=== PATIENT | male | born 1940 | race Caucasian/White ===

== ENCOUNTER 2016-11-28 13:43 | Inpatient (IN) | payer MEDICARE, OTHER ==
[2016-11-28] VITALS (9 sets, daily range): BP systolic 145–218; BP diastolic 64–80; PULSE 74–90; RESP 20–40; O2SAT 91–100
[~2016-11-28] VITALS: Ht 167.6 cm; Wt 95.6 kg
[~2016-11-28 13:43] MED LIST: ALB083NB3 HHN; ALBU8.5H4 IH; CLONAZEPAM1 M1 PO; FISH PO; IPRA3AMP HHN; ISOS30TA41 PO; METO100T PO; REM15 PO; SIMV80TA PO; TIOT18CA IH; [UNRECOGNIZED DRUG - CODE] PO
--- NOTE | 2016-11-28 14:01 | ED.REPORT ---
HPI-Dyspnea / Wheezing Date of Service Nov 28, 2016 ED Provider: Dr. Blake A 76 year old male with a history of stroke ,COPD, [place], CABG, and HTN presents to the ED via EMS complaining of SOB onset today at 1100. Associated symptoms include dry tongue. Per nurse note, the patient denies chest pain. Per , the patient looked "off" today at 1230 after he awoke from a nap. She also reports that the patient told her that he had rapid breathing before he went to bed last night. She reports that the patient stays up late and normally wakes up at 1100. The patient does try to walk around every day. Nursing Notes Stated Complaint: SOB Chief Complaint: Respiratory Complaints Nursing Notes Reviewed: Yes Allergies: Coded Allergies: prednisone (Verified Allergy, Severe, 04/29/11) Sulfa (Sulfonamide Antibiotics) (Verified Allergy, Intermediate, 04/29/11) TAPE (Verified Allergy, Mild, 04/29/11) atorvastatin (Unverified Allergy, Unknown, 04/29/11) fluticasone (Unverified Allergy, Unknown, 04/29/11) lisinopril (Unverified Allergy, Unknown, 04/29/11) Scheduled Aspirin (Aspirin) 81 Mg Tablet 81 MG PO QAM Atorvastatin (Lipitor) 40 Mg Tablet 40 MG PO HS Clopidogrel (Clopidogrel) 75 Mg Tablet 75 MG PO QAM Docosahexanoic Acid/Epa (Fish Oil Concentrate Softgel) 1 Each Capsule 1 EACH PO QAM Doxazosin Mesylate (Doxazosin Mesylate) 2 Mg Tablet 2 MG PO HS Isosorbide MN ER (Isosorbide MN ER) 60 Mg Tab.er.24h 60 MG PO QAM Metoprolol Tartrate (Metoprolol Tartrate) 100 Mg Tablet 100 MG PO BID Mirtazapine (Mirtazapine) 15 Mg Tablet 45 MG PO HS Scheduled PRN Albuterol Neb Soln (Albuterol Neb Soln) 0.63 Mg/3 Ml Vial.neb 0.63 MG INHALATION QID PRN PRN For Shortness of Breath Ipratropium/Albuterol Sulfate (Iprat-Albut 0.5-3(2.5) mg/3 mL Inhalant Soln) 3 Ml Ampul.neb 3 ML IH QID PRN PRN For Shortness of Breath General Time Seen by MD: 14:01 Chief Complaint Shortness of breath Hx Obtained From: Patient, EMS Arrived By: Ambulance Sudden in Onset?: Yes Onset Occurred: 1 - 4 hours ago Symptom Duration: Since onset Recent Healthcare: No recent doctor visit Similar Sx Previous: No Past Medical History Past Medical History Stroke CVA [place] Reports: COPD, Hypertension Past Surgical History stents placed lobectomy cartotid endardectomy laprotomy Reports: Appendectomy, CABG Ambulatory Status Independent Review of Systems Review of Systems Note: Dry tongue. Respiratory: Reports: Shortness of breath Complete sys rev & neg: except as marked. Physical Exam Initial Vital Signs Vital Signs (First) Date Time Temp Pulse Resp B/P Pulse Ox O2 Delivery O2 Flow Rate FiO2 11/28/16 13:58 36.1 81 26 218/80 100 Nasal Cannula 3 11/28/16 14:31 40 Initial VS: Reviewed General/Constitutional: Awake, Alert Neck: Full range of motion JVD. rals in both lungs. lower extremity edema. ENT: Atraumatic, Mucous membranes moist Abdomen: Atraumatic, No guarding, No rebound Back: Atraumatic, Full range of motion Lower Extremity / Pelvis / MS: Full range of motion Skin: Color NL Neurologic: Oriented X3, Speech NL, No motor deficits, No sensory deficits, CN II - XII intact normal neurological exam. No slurred speech. Head / Eyes: Atraumatic, Normocephalic, PERRL, EOMI Upper Extremity / MS: Atraumatic, Full range of motion Ankle / Foot: Atraumatic, Full range of motion Interpretation & Diagnostics Lab Results Interpretation Result Diagram: 11/28/16 1430 11/28/16 1430 Test 11/28/16 14:30 White Blood Count 6.8th/mm3 (3.8-10.1) Red Blood Count 4.40mil/mm3 (4.40-5.80) Hemoglobin 13.2g/dL (13.8-17.2) Hematocrit 43.1% (41.0-50.0) Mean Corpuscular Volume 98.0fL (81-100) Mean Corpuscular Hemoglobin 30.0pg (27.0-35.0) Mean Corpuscular Hemoglobin Concent 30.6% (32.0-37.0) Red Cell Distribution Width 12.3% (12.3-15.4) Platelet Count 96bil/L (150-400) Neutrophils (%) (Auto) 91.1% (40-74) Lymphocytes (%) (Auto) 3.1% (14-46) Monocytes (%) (Auto) 4.7% (4-12) Eosinophils (%) (Auto) 0.1% (0-5) Basophils (%) (Auto) 0.1% (0-3) Sodium Level 133mEq/L (134-144) Potassium Level 5.8mEq/L (3.5-5.2) Chloride Level 90mEq/L (97-108) Carbon Dioxide Level 35mmol/L (18-29) Blood Urea Nitrogen 10mg/dL (8-27) Creatinine 0.89mg/dL (0.76-1.27) Estimat Glomerular Filtration Rate 89mL/min (>59) Glucose Level 140mg/dL (60-99) Lactic Acid Level 0.8mmol/L (0.4-2.0) Calcium Level 8.6mg/dL (8.5-10.1) Magnesium Level 2.0mg/dL (1.6-2.6) Total Bilirubin 1.0mg/dL (0.0-1.2) Aspartate Amino Transf (AST/SGOT) 35U/L (0-50) Alanine Aminotransferase (ALT/SGPT) 38U/L (0-44) Alkaline Phosphatase 106U/L (25-160) Troponin T 0.015ug/L (0.0-0.011) Pro-B-Type Natriuretic Peptide 2434pg/mL (0-486) Total Protein 6.8g/dL (6.4-8.4) Albumin 4.2g/dL (3.4-5.0) Procalcitonin 0.05ng/mL (0.00-0.08) ECG Interpretation ECG Interpretation: Rate is 83. Sinus rhythm. Probable left atrial enlargement. Time: 14:21 Interpreted by: ED physician X-Ray Chest Interpretation Chest Xray Interpretation: IMPRESSION: Findings suspicious for CHF. Dictated by: Janice Mackey MD, PhD on 11/28/2016 at 15:44 Approved by: Janice Mackey MD, PhD on 11/28/2016 at 15:46 View: Portable, 1 view Interpretation / Wet Read by: Interpret - Radiologist Re-Eval/Medical Decision Med Decision/Clinical Course Likely CHF, initially on BiPAP, blood pressure improved after nitroglycerin, IV Lasix given. Source of Hx: Old records, EMS Re-Evaluation/Progress : Time of Eval: 14:12 Re-Evaluation/Progress Note: Rechecked patient and explained plan for treatment. Consultation : Referral / Consult Name: Ravi Noble MD Consulted With: Hospitalist Call Returned at: 16:03 Raspberry Checker: Agrees with eval, Agrees with plan, Accepts admit Note: Discussed patient case with Dr. Noble who accepts patient admit. Counseled Regarding: Diagnosis, Lab results, Need for admission Discharge & Departure Impression: Primary Impression: CHF (congestive heart failure) Disposition: ADMITTED TO HOSPITAL Discharge Condition All VS Reviewed: Yes Condition: Improved Referrals: Kevin Zimmerman MD (PCP) Crit Care Except Billable Proc Time Spent: 30-74 minutes Services Performed: Patient management by me, Time spent at bedside, Reviewing test results Critical Care Notes: See MDM Scribe Attestation Portions of this note were transcribed by Juwan Moffett. I, Dr. Blake personally performed the history, physical exam and medical decision-making; I reviewed and confirmed the accuracy of the information in the transcribed note. Signed by: Yesica Bowling, 11/28/2016 192. copies to: Kevin Zimmerman MD, Timothy S DO Nov 28, 2016 14:01 Juwan Moffett Nov 28, 2016 14:08
[2016-11-28] MEDS ORDERED: Nitroglycerin 2% 1 Gm Ointment TOPICAL ONE (14:10)
[2016-11-28 14:46] LABS: BASOPHILS % (AUTO) 0.1 % (0-3)
[2016-11-28 14:50] LABS: EOSINOPHILS % (AUTO) 0.1 % (0-5); MONOCYTES % (AUTO) 4.7 % (4-12); NEUTROPHILS % (AUTO) 91.1 % (40-74); Platelet Count 96 bil/L (150-400)
[2016-11-28 15:13] LABS: TROPONIN T 0.015 ug/L (0.0-0.011)
--- NOTE | 2016-11-28 15:47 | DRSVH ---
PROCEDURE: X-RAY CHEST ONE VIEW, PORTABLE ([id number]) INDICATIONS: dyspnea, hypoxia TECHNIQUE: One view of the chest was acquired. COMPARISON: [facility], CR, CHEST 2VW, 04/29/2011, 16:56. [facility], CR, CH EST 2VW, 04/30/2011, 12:48. [facility], , CHEST 2VW, 06/12/2015, 12:05 PM. FINDINGS: Surgical changes and devices: Median sternotomy wires. Lungs and pleura: No pleural effusions or pneumothorax. Mild cephalization of the pulmonary vasculat ure and interstitial prominence noted suspicious for CHF. Scarring left lung base is stable compared to prior examinations. Mediastinum: Mediastinal contours appear normal. Heart size is normal. Bones and chest wall: No suspicious bony lesions. Overlying soft tissues appear unremarkable. IMPRESSION: Findings suspicious for CHF. Dictated by: Janice Mackey MD, PhD on 11/28/2016 at 15:44 Approved by: Janice Mackey MD, PhD on 11/28/2016 at 15:46
[2016-11-28] MEDS ORDERED: Furosemide 10 mg/mL 10 mL Inj IVPUSH ONE (15:50)
[2016-11-28] MEDS ORDERED: CLOP75TA28 PO (16:24)
[2016-11-28] MEDS ORDERED: METO100T3 PO (16:24)
[2016-11-28] MEDS ORDERED: IPRA3AMP IH (16:24)
[2016-11-28] MEDS ORDERED: MIRT15TA6 PO (16:24)
[2016-11-28] MEDS ORDERED: ALBU0.63 INHALATION (16:24)
[2016-11-28] MEDS ORDERED: DOCO1CAP3 PO (16:24)
[2016-11-28] MEDS ORDERED: ISOS60TA2 PO (16:24)
[2016-11-28] MEDS ORDERED: DOXA2TAB PO (16:24)
[2016-11-28] MEDS ORDERED: ASPI-973 PO (16:24)
[2016-11-28] MEDS ORDERED: LIP40 PO (16:24)
--- NOTE | 2016-11-28 16:58 | NUR ---
Arrival to 2023 Pt arrived to floor from ER. Pt is dyspneic, pt has 3LNC on, sats are 89-94%. Pt is not currently on bipap and pt would like to avoid being on bipap if possible.
--- NOTE | 2016-11-28 16:59 | PCM.HPMED ---
Subjective Date of Service Nov 28, 2016 Primary Provider: Admitting Physician: Ravi Noble MD Primary Care Physician: Kevin Zimmerman MD Attending Physician: Ravi Noble MD Chief Complaint: Shortness of breath History of Present Illness: This is a 76 old man with past medical history of coronary artery disease status post CABG approximately 10 years ago, COPD secondary to tobacco abuse, on liter of oxygen at home. She also reported hypertension, hypercholesterolemia. Little to the hospital today due to shortness of breath. The daughter was visiting him today and found the patient sitting at the edge of his bed only for shortness of breath. She has a very poor historian , he stated he always been short of breath and denied any recent event such as chest pain, fever, chills, cough or flu like symptoms. No evident emergency room patient found to be hypoxic with oxygen saturation of 80% on room air, his blood pressure was 220 systolic intersection for pulmonary edema. Patient has no previous history of heart failure. His daughter stated has been having twitching movement intermittency for 2-3 day or so, but per patient that has been going on for over a year . No slurred speech, no weakness, no difficulty swallowing, no lightheadedness. Patient lives by himself and he is independent for all activities of daily living. He has a CVA affecting basal ganglia back in 2010 Review of Systems: Review of systems is pertinent for shortness of breath, twitching as described above in history of present illness otherwise a comprehensive review by 12 points is negative Allergies Coded Allergies: prednisone (Verified Allergy, Severe, 04/29/11) Sulfa (Sulfonamide Antibiotics) (Verified Allergy, Intermediate, 04/29/11) TAPE (Verified Allergy, Mild, 04/29/11) atorvastatin (Unverified Allergy, Unknown, 04/29/11) fluticasone (Unverified Allergy, Unknown, 04/29/11) lisinopril (Unverified Allergy, Unknown, 04/29/11) Home Medications Albuterol Sulfate/Ipratropium (Duoneb 2.5-0.5MG/3ML Soln) 3 Ml Nebu 3 ML HHN QID Aspirin-Expunged Drug, Do Not Renew! (Aspirin EC-Expunged Drug, Do Not Renew!) 162 Mg Tabec 325 MG PO DAILY Fish Oil-Expunged Drug, Do Not Renew! (Fish Oil-Expunged Drug, Do Not Renew!) Cap 1 CAP.EC PO DAILY Isosorbide [place]-Expunged Drug, Do Not Renew! (Fiila-Uw-Uibtwcip Drug, Do Not Renew!) 30 Mg Tabcr 60 MG PO AM Metoprolol Tart-Expunged Drug, Do Not Renew! (Metoprolol Tart-Expunged Drug, Do Not Renew!) 100 Mg Tablet 100 MG PO BID Mirtazapine-Expunged Drug, Do Not Renew! (Remeron-Expunged Drug, Do Not Renew!) 15 Mg Tablet 15 MG PO HS Simvastatin-Expunged Drug, Choose New Med! (Simvastatin-Expunged Drug, Choose New Med!) 80 Mg Tablet 40 MG PO DAILY Tiotropium Br-Expunged Drug, Do Not Renew! (Spiriva-Expunged Drug, Do Not Renew! ) 18 Mcg/Puff Pack 1 PUFF IH DAILY Scheduled PRN Albuterol-Expunged Drug, Do Not Renew! (Albuterol-Expunged Drug, Do Not Renew!) 8.5 Gm Hfa.aer.ad 2 PUFFS IH Q4 PRN PRN Albuterol-Expunged Drug, Do Not Renew! (Albuterol-Expunged Drug, Do Not Renew!) 2.5 Mg/3 Ml Nebu 5 MG HHN BID PRN PRN ClonazePAM-Expunged Drug, Do Not Renew! (ClonazePAM-Expunged Drug, Do Not Renew! ) 1 Mg Tablet 2 MG PO DAILY PRN PRN PMH Hypertension, paroxysmal atrial fibrillation, chronic respiratory failure, COPD/ emphysema, CVA, hyperlipidemia, obstructive uropathy, carotid artery disease with 50% to 79% narrowing on the left internal carotid. Surgical History CABG Family History Family history reviewed and is noncontributory to the present illness Social History Hx Alcohol Use: No (stopped in 1979) Hx Substance Use: No Hx Tobacco Use: Yes (still smokes 5 cig day) Living Arrangement: Other (patient lives alone with supervision of his daughter) Exam Vital Signs Vital Sign - Last Date Time Temp Pulse Resp B/P Pulse Ox O2 Delivery O2 Flow Rate FiO2 11/28/16 16:24 63 26 95 Nasal Cannula 3 11/28/16 14:37 40 11/28/16 13:58 36.1 218/80 Exam Gen./constitutional : Obese male in bed comfortably, on oxygen via nasal cannula, short of breath. HEENT: Head is atraumatic, sclerae anicteric. Pupils are equal and reactive to light bilaterally Mouth: Moist oral mucosa and no oral thrush Neck: Normal range of motion. Trachea is midline. No JVD. Chest: No chest wall deformity. Respiratory effort is labored. Lungs: Decreased air entry bilaterally. Bilateral expiratory wheeze. No crackle. Heart: S1, S2 regular in rhythm, no murmur, no gallop, no rales Abdomen: Distended, nontender, no palpable mass. Bowel sounds normal or quadrant Extremity: 2+ edema bilaterally ankle area, and 3+ edema pedally. Skin: No rash, no ulcers Neuro : Normal speech: Non focal. AA) x 3 . Lab and Diagnostics Result Diagram: 11/28/16 1430 11/28/16 1430 X-Rays, CTs and MRIs Accessory reviewed and show pulmonary edema. Lead EKG show normal sinus rhythm Assessment & Plan 1. Acute on chronic respiratory failure with hypoxia 2. Pulmonary edema 3. COPD exacerbation 4. Malignant accelerated hypertension 5. Hyperkalemia. 6. Suspected systolic heart failure Chronic medical problems 1. Hypertension 2. COPD secondary to tobacco abuse 3. Chronic respiratory failure on home oxygen 4. History of coronary artery disease status post CABG 5. Hypercholesterolemia 6. BPH Admit to CCU . BIPAP prn for respiratory failure , wean off and switch to nasal canula when possible Diuretic : Loading dose of Lasix 80 mg IV x 1 , then 40 mg IV BID . Monitor electrolytes . Hyperkalemia is expected to resolve with Lasix. No need for potassium binding at this time. Strict I's and O. Daily weight. Cardiac diet. Obtain 2-D echocardiogram to evaluate EF and other structural heart disease. Patient has history of CABG over 10 years ago and has been doing quite fairly cardiac lange since then . I doubt any new cardiac event. Troponin is negative (0.015) Start Solu-Medrol 40 mg IV every 8 hours. DuoNeb nebulizer every 4 hours. Spiriva 18 mcg inhaler daily . Add Advair on discharge Systolic blood pressure 200 on presentation. Currently 120 after administration of hydralazine. Resume home antihypertensive medications. Her extremity twitching noted during physical examination and reported by daughter. Per patient this is not new. Again he is a poor historian and he seems to have some cognitive impairment. Neurological examination is otherwise within normal limits. Obtain CT scan without contrast. CMP , BNP, troponin in Am Heparin for DVT prophylaxis . the outlined above is an initial plan of care and will be adjusted as per clinical course VTE Prophylaxis: Sub-Q Heparin (Unfractionated) Time spent 75 minutes Ravi Noble MD Nov 28, 2016 16:59
[2016-11-28] MEDS: MethylprednisoLONE Sodium Succinate 40 mg/mL Inj IVPUSH SCH (18:24)
[2016-11-28] MEDS: Isosorbide Mononitrate 60 mg ER24 Tablet PO SCH (18:26)
[2016-11-28 19:34] LABS: APPEARANCE,URINE CLEAR (CLEAR,HAZY); COLOR,URINE YELLOW (YELLOW); OCCULT BLOOD,URINE TRACE (NEGATIVE); PH,URINE 6.5 (5.0-8.0); UROBILINOGEN,URINE NORMAL (NORMAL)
--- NOTE | 2016-11-28 20:14 | DRSVH ---
PROCEDURE: CT BRAIN WITHOUT CONTRAST ([id number]) INDICATIONS: CVA TECHNIQUE: Noncontrast 4.5 mm thick angled axial sections acquired from the foramen magnum to the vertex, with c oronal reformats. COMPARISON: MR, BRAIN W/O CONTRAST, 04/30/2011, 12:17. [facility], CT, BRAIN W/O CONTRAS T, 04/29/2011, 17:16. FINDINGS: Image quality: Excellent. CSF spaces: Basal cisterns are patent. No extra-axial fluid collections. The ventricles are symmet corbin in size and shape. Brain: No intracranial bleeds or masses. There are old lacunar infarcts in the left caudate/interna l capsule and basal ganglia. There is cerebral volume loss for age, with resultant ventricular and cook lcal prominence. There are periventricular and deep white matter chronic small vessel ischemic trevizo es. There is intracranial internal carotid artery atherosclerosis. Skull and face: Calvarium and visualized facial bones appear intact, without suspicious lesions. Sinuses: Visualized sinuses and mastoids are clear. IMPRESSION: 1. No acute intracranial abnormalities. 2. Old lacunar infarcts in the left caudate/internal capsule and basal ganglia. 3. Cerebral volume loss and chronic microvascular ischemic changes. Dictated by: Elda Owens M.D. on 11/28/2016 at 20:08 Approved by: Elda Owens M.D. on 11/28/2016 at 20:12
[2016-11-28] MEDS: Albuterol-Ipratropium 3 mL Inhalation Solution NEB SCH (21:41)
[2016-11-29] VITALS (15 sets, daily range): BP systolic 144–181; BP diastolic 72–81; PULSE 67–100; RESP 20–28; O2SAT 91–98
[2016-11-29] MEDS: Albuterol-Ipratropium 3 mL Inhalation Solution NEB SCH ×10 (00:04→23:49)
[2016-11-29] MEDS: Heparin 5,000 Unit/mL Inj SUBQ SCH ×3 (00:30→16:47)
[2016-11-29] MEDS: MethylprednisoLONE Sodium Succinate 40 mg/mL Inj IVPUSH SCH ×3 (01:02→16:47)
[2016-11-29 04:34] LABS: BASOPHILS % (AUTO) 0.2 % (0-3); EOSINOPHILS % (AUTO) 0.2 % (0-5); MONOCYTES % (AUTO) 1.7 % (4-12); Mean Corpuscular Hemoglobin 29.6 pg (27.0-35.0); Mean Corpuscular Volume 96.5 fL (81-100); NEUTROPHILS % (AUTO) 91.6 % (40-74); Platelet Count 114 bil/L (150-400)
[2016-11-29 05:10] LABS: TROPONIN T 0.013 ug/L (0.0-0.011)
--- NOTE | 2016-11-29 06:17 | NUR ---
Respiratory Patient on 3L per nasal cannula with SpO2 92-95%. Breath sounds: expiratory wheezes throughout, more notable on the left. Resting quietly in bed overnight. Continue to monitor.
[2016-11-29] MEDS: Furosemide 10 mg/mL 4 mL Inj IVPUSH SCH ×2 (06:28→13:05)
[2016-11-29] MEDS: Tiotropium 18mcg/Cap 5 Capsule Inhaler Kit INHALATION SCH ×2 (07:59→09:24)
--- NOTE | 2016-11-29 08:49 | PCM.PNMED ---
Subjective Date of Service Nov 29, 2016 Subjective He has less dyspnea. Really minimal orthopnea or dyspnea at rest. Some dyspnea with exertion. He has had escalating pedal edema for the last 4 weeks. He has been diuretics and has been taking these for several weeks. He has not been watching his salt but has not really had more salt last day or 2. No chest pain or palpitations. No rhinorrhea sore throat fevers chills or cough. No diarrhea. Exam Vital Signs Vital Sign - Last Date Time Temp Pulse Resp B/P Pulse Ox O2 Delivery O2 Flow Rate FiO2 11/29/16 08:30 Supplement Oxygen 11/29/16 07:57 36.8 100 24 181/80 91 3.00 11/28/16 14:37 40 Intake and Output 11/28/16 11/28/16 11/29/16 Cumulative From/Thru 15:00 23:00 07:00 11/28/16 13:58 - 11/29/16 05:52 Intake Total 237 ml 421 ml 658 ml Output Total 300 ml 600 ml 900 ml Balance -63 ml -179 ml -242 ml Intake Oral 237 ml 400 ml 637 ml IV Total 21 ml 21 ml Output Urine Total 300 ml 600 ml 900 ml Exam Alert oriented 3, no distress. Fluent speech Anicteric sclera. Neck supple, normal JVP. Lungs are clear with decreased breath sounds in the bases. Heart is regular without murmur gallop or rub Abdomen is distended but nontender Extremities a 3+ edema bilaterally, good pedal and radial pulses. IVs and Medications Medications Reviewed: Medications were reviewed in detail Lab and Diagnostics Result Diagram: 11/29/1640911/29/16409 X-Rays, CTs and MRIs Accessory reviewed and show pulmonary edema. Lead EKG show normal sinus rhythm Assessment & Plan 1. Acute on chronic respiratory failure with hypoxia, POA. This appears to represent acute heart failure. His last echo was in 2010 with an EF of 60%. It is unclear if he has systolic or diastolic dysfunction at this point. We will repeat the echo today. 2. Pulmonary edema, was secondary to acute heart failure, etiology undefined. POA. We will continue diuresis with IV Lasix every 12 hours. 3. COPD exacerbation,POA. Will use typical measures of low-dose steroids as well as bronchodilators. There is no evidence of pulmonary infection clinically or by x-ray. 4. Essential hypertension, uncontrolled. POA. We will continue to titrate up his oral medications for better control. We will focus on beta blockers at this point. Lucho inhibitors will have to be held until his hyperkalemia improves. 5. Hyperkalemia. POA. This is improving with his current diuresis will follow closely. There is no evidence of acute kidney injury. 6. Chronic respiratory failure on home oxygen, POA 7. History of coronary artery disease status post CABG, POA 8. Hypercholesterolemia, POA 9. BPH, POA The following text retained from the admit history and physical. Admit to CCU . BIPAP prn for respiratory failure , wean off and switch to nasal canula when possible Diuretic : Loading dose of Lasix 80 mg IV x 1 , then 40 mg IV BID . Monitor electrolytes . Hyperkalemia is expected to resolve with Lasix. No need for potassium binding at this time. Strict I's and O. Daily weight. Cardiac diet. Obtain 2-D echocardiogram to evaluate EF and other structural heart disease. Patient has history of CABG over 10 years ago and has been doing quite fairly cardiac lange since then . I doubt any new cardiac event. Troponin is negative (0.015) Start Solu-Medrol 40 mg IV every 8 hours. DuoNeb nebulizer every 4 hours. Spiriva 18 mcg inhaler daily . Add Advair on discharge Systolic blood pressure 200 on presentation. Currently 120 after administration of hydralazine. Resume home antihypertensive medications. Her extremity twitching noted during physical examination and reported by daughter. Per patient this is not new. Again he is a poor historian and he seems to have some cognitive impairment. Neurological examination is otherwise within normal limits. Obtain CT scan without contrast. CMP , BNP, troponin in Am Heparin for DVT prophylaxis . the outlined above is an initial plan of care and will be adjusted as per clinical course Pain Evaluation: Adequate Pain Control VTE Prophylaxis: Sub-Q Heparin (Unfractionated) VTE Mechanical Devices: Anti-Embolic stockings Resuscitation Status: CPR: Attempt Resuscitation Time spent 30 minute Bert De La Cruz MD Nov 29, 2016 08:49
[2016-11-29] MEDS: Isosorbide Mononitrate 60 mg ER24 Tablet PO SCH (09:25)
[2016-11-29] MEDS: Diltiazem CD 120 mg ER24 Capsule PO SCH (13:04)
--- NOTE | 2016-11-29 14:08 | DRSVH ---
[facility] [address] [place] [address] Echocardiogram Report Name: MICHAEL UNDERWOOD Wallace e: 11/29/2016 Height: 66 in Hospital Exam Location: [facility] Weight: 22 0 lb Gender: Male BSA: 2.1 m2 : 1940 Age: 76 yrs BP: 164/73 mmHg Reason For Study: HEART FAILURE, PULMONARY EDEMA History: CABG,COPD Ordering Physician: HOSPITALIST [facility] Performed By: Lorna Rashid Referring Physician: Dr. Kevin Zimmerman Interpretation Summary The left ventricle is normal in size. The ejection fraction is estimated to be 65-70%. The right ventricle is not well visualized. The right ventricle grossly appears normal in size with probable normal systolic function. There is mild aortic regurgitation. Compared to the prior echo study, there has been no change in the severity of aortic regurgitation. Procedure: A two-dimensional transthoracic echocardiogram with color flow and Doppler was performed. The apical views were difficult to obtain and are suboptimal in quality. A contrast injection of Definity was performed to improve assessment of LV function. Contrast was injected into an intravenous site in the left arm. A total of 4 cc of contrast was given. Comparison is made with the echocardiogram of 04-30-2011. The suprasternal notch views were difficult to obtain and are suboptimal in quality. The patient was in normal sinus rhythm during the exam. The patient did well with the Definity Contrast. No complications were noted. Left Ventricle: The left ventricle is normal in size. Left ventricular wall thickness is mild-moderately increased. There is no thrombus. The ejection fraction is estimated to be 65-70%. There has been no significant change since the previous study. There is basal inferior wall hypokinesis. There is basal inferoseptal wall hypokinesis. Compared to the prior exam, the left ventricular wall motion has not changed. Spectral Doppler of the mitral valve is reversed, with an E/A wave ratio < 1.0. Right Ventricle: The right ventricle is not well visualized. The right ventricle grossly appears normal in size with probable normal systolic function. Atria: The left atrium is mildly dilated. The left atrium has remained unchanged in size since the prior echo exam. The right atrium is borderline dilated. There is no Doppler evidence for an atrial septal defect. Mitral Valve: The mitral valve is grossly normal. The mitral valve leaflets are slightly calcified. There is trace mitral regurgitation. Aortic Valve: The aortic valve is trileaflet. There is mild aortic valve sclerosis. The aortic valve opens well. There is no aortic valve stenosis. There is mild aortic regurgitation. Compared to the prior echo study, there has been no change in the severity of aortic regurgitation. Tricuspid Valve: The tricuspid valve is not well visualized, but is grossly normal. There is trace tricuspid regurgitation. The right ventricular systolic pressure is estimated at 38 mmHg assuming a right atrial pressure of 8 mm Hg. Pulmonic Valve: The pulmonic valve is not well seen, but is grossly normal. There is trace pulmonic regurgitation. Great Vessels: The aortic root is normal size. There is aortic root sclerosis/calcification. The dimensions of the ascending aorta are normal. The pulmonary artery is normal size. The IVC is dilated (diameter is greater than 2.1 cm) yet it collapses greater than 50% with a sniff. This suggests a right atrial pressure of 8 mm Hg. Pericardium/ Pleura There is no pericardial effusion. There is no pleural effusion. MMode/2D Measurements & Calculations LVIDd: 4.5 cm LA dimension: 4.4 cm RA long axis LVOT diam LVIDs: 2.8 cm FS: 37.4 % LA A2 area: 22.2 cm RA area AoV Opening EPSS: 0.48 cm LA A4 area: 21.3 cm IVSd: 1.4 cm LA length (vol): 5.6 cm: 20.8 cm Ao root diam LVPWd: 1.2 cm LA vol: 71.8 ml RA vol LA vol index : 64.7 ml Aortic Jxn RA : 31.1 mm2 asc Aorta IVC diam: 2.2 cm Diam: 3.4 cm LV mohr. diameter/BSA LV sys. diameter/BSA (cm/m^2): 2.2 (cm/m^2): 1.4 Doppler Measurements & Calculations Ao V2 max MV E max abram MV E/A: 0.92 TR max abram : 188.2 cm/sec : 93.9 cm/sec Med Peak E' Abram : 275.0 cm/sec Ao max PG MV A max abram TR max PG : 14.2 mmHg : 102.3 cm/sec E/E' med: 13.6 : 30.2 mmHg Ao mean PG MV P1/2t: 79.7 msec Lat Peak E' Abram PA V2 max : 115.0 cm/sec LVOT Max Abram E/E' lat: 10.3 PA mean PG : 118.5 cm/sec E/e' average: 12.0 Pulm A Revs Dur PA Accel Time OSIEL(I,D): 2.4 cm : 0.09 sec sev ratio MV A dur: 0.14 sec AI P1/2t : 555.4 msec AI dec slope : 215.5 cm/s2c MV dec time MV P1/2t max abram Ao V2 mean LV V1 max PG : 0.27 sec : 131.1 cm/sec MVA(P1/2t): 2.8 cm2 Ao V2 VTI: 41.4 cm LV V1 VTI OSIEL(V,D): 2.3 cm2 : 27.5 cm PA V2 mean OSIEL indexed to BSA Pulm A Revs Dur - MV : 76.4 cm/sec (cm^2/m^2): 1.2 A Dur: -0.02 msec Reading Physician:DACIA
--- NOTE | 2016-11-29 17:00 | NUR ---
Resp/Activity Patient a/o x 3, [place], denies pain or nausea. Taking approx 50% of meals. Lungs decreased bilat, neb tx given per RTC. O2 decreased to 2 L nc sat 94-96%. VSS, tele SR. Patient amb in room with SBA brie fair, dyspnea at rest and with exertion. Voiding clear yellow uop. BM x 1. Bilat LE pitting edema 2+.Will cont poc.
[2016-11-30] VITALS (20 sets, daily range): BP systolic 141–173; BP diastolic 62–81; PULSE 66–88; RESP 25–36; O2SAT 91–98
[2016-11-30] MEDS: Heparin 5,000 Unit/mL Inj SUBQ SCH ×3 (00:11→17:56)
[2016-11-30] MEDS: MethylprednisoLONE Sodium Succinate 40 mg/mL Inj IVPUSH SCH ×3 (00:12→17:55)
[2016-11-30] MEDS: Albuterol-Ipratropium 3 mL Inhalation Solution NEB SCH ×7 (02:29→19:24)
[2016-11-30 03:47] LABS: Mean Corpuscular Hemoglobin 29.3 pg (27.0-35.0); Mean Corpuscular Volume 93.7 fL (81-100)
[2016-11-30] MEDS: Furosemide 10 mg/mL 4 mL Inj IVPUSH SCH ×2 (06:10→14:16)
--- NOTE | 2016-11-30 07:02 | NUR ---
Respiratory/HTN Pt on 2-3 L NC throughout shift, occasional SOB at rest, pt states relief w/ neb treatment. SBP 170s this morning, aware, no new orders. Pt given IV lasix this am.
[2016-11-30] MEDS: Tiotropium 18mcg/Cap 5 Capsule Inhaler Kit INHALATION SCH (08:14)
[2016-11-30] MEDS: Isosorbide Mononitrate 60 mg ER24 Tablet PO SCH (08:14)
[2016-11-30] MEDS: Diltiazem CD 120 mg ER24 Capsule PO SCH (08:14)
--- NOTE | 2016-11-30 09:05 | NUR ---
SHERIF SHERIF signed
--- NOTE | 2016-11-30 10:32 | PCM.PNMED ---
Subjective Date of Service Nov 30, 2016 Subjective He is more short of breath today. No chest pain. Minimal wheezing. Minimal cough, dry. He notes it. 69-[id number] history of smoking. He is being treated for acute diastolic heart failure. His urinary output has been marginal but positive. No abdominal pain nausea and diarrhea or diaphoresis. Exam Vital Signs Vital Sign - Last Date Time Temp Pulse Resp B/P Pulse Ox O2 Delivery O2 Flow Rate FiO2 11/30/16 09:57 74 11/30/16 08:07 36.7 36 172/73 93 Nasal Cannula 2.00 11/28/16 14:37 40 Intake and Output 11/29/16 11/29/16 11/30/16 Cumulative From/Thru 15:00 23:00 07:00 11/28/16 13:58 - 11/30/16 04:56 Intake Total 120 ml 200 ml 978 ml Output Total 775 ml 450 ml 2125 ml Balance -655 ml -250 ml -1147 ml Intake Oral 120 ml 200 ml 957 ml IV Total 21 ml Output Urine Total 775 ml 450 ml 2125 ml # Bowel Movements 1 1 Exam We will going to 3. Fluent speech. Tachypneic Mild to moderate distress. Anicteric sclera Lungs with increased great effort but minimal wheezing and good air movement. Heart is regular without murmur gallop or rub. Abdomen is soft nontender. Extremities 1-2+ edema and good pedal pulses IVs and Medications Medications Reviewed: Medications were reviewed in detail Lab and Diagnostics Result Diagram: 11/30/16 0330 11/30/16 0330 X-Rays, CTs and MRIs Accessory reviewed and show pulmonary edema. Lead EKG show normal sinus rhythm Assessment & Plan 1. Acute on chronic respiratory failure with hypoxia, POA. This appears to represent acute heart failure. His last echo was in 2010 with an EF of 60%. It is unclear if he has systolic or diastolic dysfunction at this point. Patient is slightly worse today. His diuresis has been marginal. Echo revealed normal systolic function and possible diastolic dysfunction. He does have extensive smoking history as well but minimal wheezing on exam. The plan is to perform an ABG and chest x-ray continue to diurese more aggressively and continue bronchodilators with IV steroids. 2. Acute on chronic diastolic heart failure. POA. We will continue diuresis with IV Lasix every 12 hours, but increase the dose from 40-60.. 3. COPD exacerbation,POA. Will use typical measures of low-dose steroids as well as bronchodilators. There is no evidence of pulmonary infection clinically or by x-ray. 4. Essential hypertension, uncontrolled. POA. We will continue to titrate up his oral medications for better control. We will focus on beta blockers at this point. Lucho inhibitors will have to be held until his hyperkalemia improves. 5. Hyperkalemia. POA. Recheck labs today. 6. Chronic respiratory failure on home oxygen, POA 7. History of coronary artery disease status post CABG, POA 8. Hypercholesterolemia, POA 9. BPH, POA The following text retained from the admit history and physical. Admit to CCU . BIPAP prn for respiratory failure , wean off and switch to nasal canula when possible Diuretic : Loading dose of Lasix 80 mg IV x 1 , then 40 mg IV BID . Monitor electrolytes . Hyperkalemia is expected to resolve with Lasix. No need for potassium binding at this time. Strict I's and O. Daily weight. Cardiac diet. Obtain 2-D echocardiogram to evaluate EF and other structural heart disease. Patient has history of CABG over 10 years ago and has been doing quite fairly cardiac lange since then . I doubt any new cardiac event. Troponin is negative (0.015) Start Solu-Medrol 40 mg IV every 8 hours. DuoNeb nebulizer every 4 hours. Spiriva 18 mcg inhaler daily . Add Advair on discharge Systolic blood pressure 200 on presentation. Currently 120 after administration of hydralazine. Resume home antihypertensive medications. Her extremity twitching noted during physical examination and reported by daughter. Per patient this is not new. Again he is a poor historian and he seems to have some cognitive impairment. Neurological examination is otherwise within normal limits. Obtain CT scan without contrast. CMP , BNP, troponin in Am Heparin for DVT prophylaxis . the outlined above is an initial plan of care and will be adjusted as per clinical course Pain Evaluation: Adequate Pain Control VTE Prophylaxis: Sub-Q Heparin (Unfractionated) VTE Mechanical Devices: Anti-Embolic stockings Resuscitation Status: CPR: Attempt Resuscitation Time spent 35 minutes Bert De La Cruz MD Nov 30, 2016 10:32
--- NOTE | 2016-11-30 11:21 | ABG ---
DateTimeAnalyzed 11:17:00 -_ pH ____7.350 - 7.350 7.450 pCO2 ___78.8__ -mmHg 35.0 45.0 pO2 ___74.6__ -mmHg 69.0 116 HCO3- ___42.3__ -mmol/L 22.0 26.0 ABE ___13.6__ -mmol/L -2.0 2.0 tHb ___12.6__ -g/dL O2Hb ___92.0__ -% COHb ____1.2__ -% MetHb ____0.9__ -% sO2 ___94.0__ -% 25.0 FIO2 ___28.0__ -% Drawn By ams - Date/Time Notified____ 11:20:00 -_ Spontaneous_RR ___36.0__ -b/min Liter_Flow ____2.0__ -L/min Oxygen Device 1 __CANNULA - Notified By ams - Notified Whom dr jacqueline - Age 69 -years B 765 -mmHg tO2 ___16.3__ -Vol% Bert test _Positive -
--- NOTE | 2016-11-30 12:58 | DRSVH ---
PROCEDURE: X-RAY CHEST ONE VIEW, PORTABLE ([id number]) INDICATIONS: dyspnea TECHNIQUE: One view of the chest was acquired. COMPARISON: [facility], CR, XR CHEST 1VW (PORTABLE), 11/28/2016, 14:59. FINDINGS: Surgical changes and devices: Sternotomy and CABG. Lungs and pleura: Small left pleural effusion is unchanged. There is diffuse interstitial prominence, stable. Mediastinum: Mediastinal contours appear normal. Heart size is normal. Bones and chest wall: No suspicious bony lesions. Overlying soft tissues appear unremarkable. Part ial resection of the left fifth rib. IMPRESSION: Stable chest x-ray. Dictated by: Elda Owens M.D. on 11/30/2016 at 12:56 Approved by: Elda Owens M.D. on 11/30/2016 at 12:56
[2016-11-30] MEDS ORDERED: Albuterol 0.5% (5mg/mL) 20 mL Inhalation Solution NEB PRN (15:15)
--- NOTE | 2016-11-30 15:18 | NUR ---
Social Work-initial assessment: Data & Assessment: See initial assessment. EMR Reviewed. Pt is a 76 y/o male who was admitted on 11/28/16 for Resp. Failure and New Onset CHF per H&P. Pt's insurance is [employer] and [employer] and PCP is Kevin Crum MD. Pt's readmission score is 4-high risk. SW met with pt, pt's daughter Jody Sheth [phone] and daughter Sidra Gonzalez [phone] to discuss discharge planning, SW role explained and initial assessment complete. Pt is alert and oriented x3. Pt resides at home alone in a single level home with no steps to enter where pt remains independent with basic ADLs. Pt is independent at baseline and has a power chair. Patient does not drive. Pt has no HH or SNF history. Pt has not completed DPOA/ advanced directive and SW provided patient and family with information. Pt has no fdc care or VA benefits. Pt's family have been assisting him at home. SW discussed HH services and continuous churn buttermaker care planning. Patient chose [facility] if HH is needed upon discharge. Pt's family to provide transport home at discharge. SW provided phone number and plan on white board in room. SW will continue to follow. Plan: Pt to likely discharge home rule out HH. Pt's family is supportive. Patient will be transported home via POV. SW will continue to follow. Ben Leon LMSW, [facility] Addendum: 11/30/16 at 1531 by BEN LEON SS Amended: Links added. Addendum: 11/30/16 at 1532 by BEN LEON SS Patient receives O2 from [facility]
--- NOTE | 2016-11-30 18:33 | NUR ---
Resp Patient a/o x 3, [place], but denies pain or nausea, taking diet fair. See vitals, tele SR. Patient c/o increased sob this shift, RR 36-40 min, requiring more freq neb tx per RTC. MD aware, CXR and ABG's done. Patient placed on HFNC brie fair but requested to go back on nc but HFNC wouldnt stay in nares. Patient oob to chair with sba brie fair. Will cont poc.
--- NOTE | 2016-11-30 19:08 | NUR ---
UOP/Bladder scan Patient voiding small amts clear yellow uop 50-100 ml at a time. Bladder scan done PVR 273 ml.
[2016-11-30] MEDS ORDERED: Albuterol 2.5 mg/3 mL Inhalation Solution NEB ONE (21:58)
--- NOTE | 2016-11-30 22:57 | NUR ---
Resp/BiPAP Pt had very labored breathing at start of shift, maintaining adequate oxygenation but tachypneic and gasping, breath sounds markedly decreased. Pt awake and following commands but looked anxious d/t breathing and hardly able to speak d/t SOB. Neb treatment given at this time by RT. Pt refusing BiPAP. Pt reassessed a little later and breathing was still labored, pt also seemed a little disoriented when answering questions. MD notified and ordered ABGs. Charge nurse assessed pt as well and spoke to him about the need for BiPAP, pt agreed and RT applied this. Pt stated this helped improve his SOB somewhat. Continuing to monitor.
--- NOTE | 2016-11-30 23:10 | ABG ---
DateTimeAnalyzed 23:05:00 -_ pH ____7.325 - 7.350 7.450 pCO2 ___82.5__ -mmHg 35.0 45.0 pO2 110 -mmHg 69.0 116 HCO3- ___41.8__ -mmol/L 22.0 26.0 ABE ___12.8__ -mmol/L -2.0 2.0 tHb ___12.0__ -g/dL O2Hb ___95.8__ -% COHb ____1.2__ -% MetHb ____0.9__ -% sO2 ___97.9__ -% 25.0 FIO2 ___45.0__ -% Drawn By RB - Oxygen Device 1 ____BIPAP - Notified By RB - Notified Whom CAROL K, RN - Age 69 -years B 762 -mmHg tO2 ___16.3__ -Vol% Bert test N/A -
[2016-12-01] VITALS (12 sets, daily range): BP systolic 67–164; BP diastolic 36–98; PULSE 50–77; RESP 18–36; O2SAT 88–98
[2016-12-01] MEDS: Heparin 5,000 Unit/mL Inj SUBQ SCH ×3 (00:40→17:36)
[2016-12-01] MEDS: MethylprednisoLONE Sodium Succinate 40 mg/mL Inj IVPUSH SCH ×3 (00:42→17:37)
[2016-12-01] MEDS: Albuterol-Ipratropium 3 mL Inhalation Solution NEB SCH ×6 (00:56→20:38)
--- NOTE | 2016-12-01 02:02 | NUR ---
Mentation/Restlessness Pt now answering all orientation questions appropriately, though limited in speaking by BiPAP use, pt is oriented to self and stating that he is in the hospital d/t his trouble breathing, pt also able to state accurate year. However, pt has been restless on BiPAP and continually pulling at mask and tubing, given PRN Restoril at 2330 w/ minimal effect. MD informed of pt's improved mentation but constant restlessness affecting BiPAP use and ordered one time Ativan dose. Continuing to monitor.
--- NOTE | 2016-12-01 03:56 | ABG ---
DateTimeAnalyzed 03:52:00 -_ pH ____7.313 - 7.350 7.450 pCO2 ___87.4__ -mmHg 35.0 45.0 pO2 ___85.2__ -mmHg 69.0 116 HCO3- ___43.0__ -mmol/L 22.0 26.0 ABE ___13.4__ -mmol/L -2.0 2.0 tHb ___12.3__ -g/dL O2Hb ___93.8__ -% COHb ____1.3__ -% MetHb ____0.9__ -% sO2 ___95.9__ -% 25.0 FIO2 ___40.0__ -% Set_RR ___16.0__ -b/min Drawn By RB - Date/Time Notified____ 03:55:00 -_ Oxygen Device 1 ____BIPAP - Notified By RB - Notified Whom SULLENBERGER, OFELIA DR - Age 69 -years B 760 -mmHg tO2 ___16.3__ -Vol% Bert test N/A -
[2016-12-01] MEDS: Furosemide 10 mg/mL 4 mL Inj IVPUSH SCH ×2 (06:25→11:29)
--- NOTE | 2016-12-01 08:08 | NUR ---
Mentation/Restraints Pt able to sleep for about an hour after Ativan admin. When woken for vitals pt found to be somnolent and not able to answer orientation questions well, more grunting and occasional yes/no answers, but overall disoriented. Pt also once again pulling at BiPAP tube and mask. notified, more ABGs ordered and results reported to MD Cedeño by RT. Pt did not return to sleep and began pulling off BiPAP mask consistently desating into 60s when this occurred if staff not there to replace right away. Pt reminded many times to not do this but d/t disorientation would continually pull mask off. ordered soft wrist restraints and someone sat with pt for safety. Mepilex used on nose to protect skin but was continually pulled off d/t pt pulling at mask
[2016-12-01] MEDS: Diltiazem CD 120 mg ER24 Capsule PO SCH (08:24)
[2016-12-01] MEDS: Tiotropium 18mcg/Cap 5 Capsule Inhaler Kit INHALATION SCH (08:24)
[2016-12-01 09:33] LABS: Mean Corpuscular Hemoglobin 29.7 pg (27.0-35.0); Mean Corpuscular Volume 94.1 fL (81-100)
[2016-12-01] MEDS ORDERED: Isosorbide Mononitrate 30 mg ER24 Tablet PO SCH (09:33)
--- NOTE | 2016-12-01 11:28 | PCM.PNMED ---
Subjective Date of Service Dec 01, 2016 Subjective The patient is somnolent. He is on BiPAP. His CO2 remains at 87 today in spite of being on BiPAP for much of the last day. He cannot answer any questions. Exam Vital Signs Vital Sign - Last Date Time Temp Pulse Resp B/P Pulse Ox O2 Delivery O2 Flow Rate FiO2 12/01/16 09:22 70 12/01/16 08:05 31 93 40 12/01/16 07:50 Supplement Oxygen CPAP/BIPAP 12/01/16 07:46 36.9 164/43 11/30/16 20:28 3.00 Intake and Output 11/30/16 11/30/16 12/01/16 Cumulative From/Thru 15:00 23:00 07:00 11/28/16 13:58 - 12/01/16 06:34 Intake Total 640 ml 150 ml 1768 ml Output Total 825 ml 275 ml 3225 ml Balance -185 ml -125 ml -1457 ml Intake Oral 640 ml 150 ml 1747 ml IV Total 21 ml Output Urine Total 825 ml 275 ml 3225 ml # Voids 3 3 # Bowel Movements 0 0 1 Exam Patient is on BiPAP and not really arousable. Neck is supple. Lungs are mostly clear with normal rate Heart is regular without murmur. Abdomen is distended but not tender. Extremities with 1+ edema with good pedal and radial pulses. IVs and Medications Medications Reviewed: Medications were reviewed in detail Lab and Diagnostics Result Diagram: 12/01/1620 12/01/1620 X-Rays, CTs and MRIs Accessory reviewed and show pulmonary edema. Lead EKG show normal sinus rhythm Assessment & Plan 1. Acute on chronic respiratory failure with hypoxia and hypercarbia, POA. This appears to represent acute heart failure. His echo indicates probable diastolic dysfunction. However does have COPD with [id number] history of smoking. The patient unfortunately continues to be hypercarbic while on BiPAP for over 24 hours. Had a long discussion with family today regarding whether or not he would be intubated transiently for treatment of some plain such as acute respiratory failure. There again and talk amongst themselves and in the meantime we will continue BiPAP support. 2. Acute on chronic diastolic heart failure. POA. We will continue diuresis with IV Lasix every 12 hours, but increase the dose from 40-60.. 3. COPD exacerbation,POA. Will use typical measures of low-dose steroids as well as bronchodilators. There is no evidence of pulmonary infection clinically or by x-ray. 4. Essential hypertension, uncontrolled. POA. We will continue to titrate up his oral medications for better control. We will focus on beta blockers at this point. Lucho inhibitors will have to be held until his hyperkalemia improves. 5. Hyperkalemia. POA. Resolved, follow. 6. Chronic respiratory failure on home oxygen, POA 7. History of coronary artery disease status post CABG, POA 8. Hypercholesterolemia, POA 9. BPH, POA Pain Evaluation: Adequate Pain Control VTE Prophylaxis: Sub-Q Heparin (Unfractionated) VTE Mechanical Devices: Anti-Embolic stockings Resuscitation Status: CPR: Attempt Resuscitation Time spent 30 minutes Bert De La Cruz MD Dec 01, 2016 11:28
[2016-12-01 11:47] LABS: TROPONIN T 0.01 ug/L (0.0-0.011)
--- NOTE | 2016-12-01 14:24 | DRSVH ---
PROCEDURE: X-RAY CHEST ONE VIEW, PORTABLE ([id number]) INDICATIONS: dyspnea TECHNIQUE: One view of the chest was acquired. COMPARISON: [facility], CR, XR CHEST 1VW (PORTABLE), 11/30/2016, 11:02. FINDINGS: Surgical changes and devices: Median sternotomy. Lungs and pleura: Blunted left costophrenic angle redemonstrated mild interstitial prominence. Mediastinum: Mediastinal contours appear normal. Heart size is normal. Bones and chest wall: No suspicious bony lesions. Overlying soft tissues appear unremarkable. IMPRESSION: Mild interstitial prominence redemonstrated and either pleural scarring or trace left ple ural effusion appears unchanged. Dictated by: Simón Hernandez [facility] Interpreted: Janice Mackey MD on 12/01/2016 at 14:22 Transcribed by: ALINA on 12/01/2016 at 14:23 Approved by: Janice Mackey MD, PhD on 12/01/2016 at 16:34
--- NOTE | 2016-12-01 15:40 | ABG ---
DateTimeAnalyzed 15:36:00 -_ pH ____7.251 - pCO2 103 -mmHg pO2 ___41.2__ -mmHg HCO3- ___43.8__ -mmol/L ABE ___12.5__ -mmol/L tHb ___12.6__ -g/dL O2Hb ___68.2__ -% COHb ____1.5__ -% MetHb ____1.0__ -% sO2 ___69.9__ -% FIO2 ___40.0__ -% Drawn By JJ - Date/Time Notified____ 15:39:00 -_ Notified By JJ - Notified Whom DR KATIE - Age 69 -years B 755 -mmHg tO2 ___12.1__ -Vol% Bert test _Positive -
--- NOTE | 2016-12-01 15:40 | ABG ---
DateTimeAnalyzed 15:36:00 -_ pH ____7.251 - pCO2 103 -mmHg pO2 ___41.2__ -mmHg HCO3- ___43.8__ -mmol/L ABE ___12.5__ -mmol/L tHb ___12.6__ -g/dL O2Hb ___68.2__ -% COHb ____1.5__ -% MetHb ____1.0__ -% sO2 ___69.9__ -% FIO2 ___40.0__ -% CPAP ___19.0__ -cmH2O PEEP ____6.0__ -cmH2O Drawn By JJ - Date/Time Notified____ 15:39:00 -_ Spontaneous_RR ___34.0__ -b/min Oxygen Device 1 ____BIPAP - Notified By JJ - Notified Whom DR KATIE - Age 69 -years B 755 -mmHg tO2 ___12.1__ -Vol% Bert test _Positive -
--- NOTE | 2016-12-01 15:53 | NUR ---
abg assumed care of patient from 1515 to 1530. when receiving report from day joana De La Cruz notified us that a stat abg would be ordered and to notify him when it was done. ABG done and Dr. De La Cruz notified at 1540 per myself and RT. Dr. De La Cruz to go to room and talk to family. report given to conrad vincent at 1530 and updated on plan for Dr. De La Cruz to talk with family.
--- NOTE | 2016-12-01 16:09 | NUR ---
TRANSFER CCU Assumed care 1530 report from Angella Birch RN. At 1605 patient transferred to room 2016 care of patient given to Pura Jim RN. Dr De La Cruz in room alone with RT, patient to be intubated per patient and family request. ABG;S resulted indicating patients respirations on BiPAP were inadequate.
[2016-12-01] MEDS ORDERED: Etomidate 2 mg/mL 20 mL Inj IV ONE ×2 (16:11→16:25)
--- NOTE | 2016-12-01 16:41 | PCM.PROC ---
Procedure Note Date of Service: Dec 01, 2016 Pre Procedure Diagnosis: Acute on chronic respiratory failure with hypoxia and hypercarbia, Post Procedure Diagnosis: Acute on chronic respiratory failure with hypoxia and hypercarbia, Procedure: Endotracheal Intubation Date: 12/01/2016 Time: 16:35 Indication: Respiratory Distress Resident: Perry Baumann DO R1 Attending: Bob De La Cruz MD Pt's identity confirmed. Procedure discussed with Pt's family by Dr. De La Cruz and Resident in attendance. The patient was placed in a flat position, with next slightly extended. Sedation was obtained with Ativan, and additionally with Etomidate 20mg. The patient was easily ventilated using an ambu bag. The Mac 3 blade was used and inserted into the oropharynx at which time there was a Grade 2 view of the vocal cords. A 7.5-latvian endotracheal tube was inserted and visualized going through the vocal cords. The stylette was removed. Colorimetric change was visualized on the CO2 meter. Breath sounds were heard in both lung dinh equally. The endotracheal tube was placed at 24 cm, measured at the teeth. Attending Dr. De La Cruz was present for the entire procedure. A chest x-ray was ordered to assess for pneumothorax and verify endotracheal tube placement. Estimated Blood Loss: 0ml Post intubation Respiratory Therapy was able to suction the Pt and obtain sputum samples. The patient tolerated the procedure well and there were no complications. Provider and Bakery Demonstrator: Bert De La Cruz MD Indication for Procedure: Respiratory Distress with hypercapnia Attending Statement Patient seen and evaluated with resident. Entire procedure was mentored in person. copies to: Bert De La Cruz MD, GILES A DO Dec 01, 2016 16:41 Bert De La Cruz MD Dec 09, 2016 14:31
[2016-12-01] MEDS ORDERED: Albuterol 2.5 mg/3 mL Inhalation Solution NEB ONE (16:47)
--- NOTE | 2016-12-01 16:48 | DRSVH ---
PROCEDURE: X-RAY CHEST ONE VIEW, PORTABLE ([id number]) INDICATIONS: Post intubation to verify ETT placement TECHNIQUE: One view of the chest was acquired. COMPARISON: [facility], CR, XR CHEST 1VW (PORTABLE), 12/01/2016, 11:32. FINDINGS: Surgical changes and devices: ETT has been placed tip projects at 5.4 cm above the sophie. Nasogastr ic tube traverses the GE junction. Lungs and pleura: No pleural effusions or pneumothorax. Left basilar airspace opacity present in sm all left pleural effusion. Mediastinum: Mediastinal contours appear normal. Heart size is normal. Bones and chest wall: No suspicious bony lesions. Overlying soft tissues appear unremarkable. IMPRESSION: 1. Placement of ETT and nasogastric tube. 2. Increasing opacification within the left lung base and small left pleural effusion suspicious for aspiration or pneumonia. Dictated by: Simón Hernandez RRA Interpreted: Janice Mackey MD on 12/01/2016 at 16:47 Transcribed by: ALINA on 12/01/2016 at 16:48 Approved by: Janice Mackey MD, PhD on 12/01/2016 at 16:50
--- NOTE | 2016-12-01 16:52 | NUR ---
PT ARRIVED TO CCU AT APPROX 1615HRS FROM [facility] PT WAS INTUBATED AT 1615HRS, BP WAS INITALLY LOW IN THE 70'S BUT RESPONDED TO IVF'S AND IS CURRENTLY 124SYS. PT RECEIVED 20MG ETOMADATE IV FOR INTUBATION AND ATIVAN A TOTAL OF 2MG, 1MG AT 1620HRS AND ANOTHER 1MG AT 1650HRS. OG INSETED CXR DONE.
[2016-12-01] MEDS ORDERED: Sodium Chloride LOK Flush 10 mL Syringe IVFLUSH PRN ×4 (17:05→17:15)
[2016-12-01] MEDS: Propofol Inj 1,000,000 MCG in IV Premix 1 EACH IV SCH (17:07)
[2016-12-01] MEDS ORDERED: Albuterol 0.5% (5mg/mL) 20 mL Inhalation Solution NEB PRN (17:11)
[2016-12-01] MEDS: Chlorhexidine 0.12% 15 mL Oral Solution MT SCH ×2 (17:39→20:46)
[2016-12-01] MEDS ORDERED: Meropenem Inj 1,000 MG in IV Premix 1 EACH IV SCH (18:05)
[2016-12-01] MEDS: fentaNYL 2,500 mCg/250 mL 2,500 MCG in IV Premix 1 EACH IV PRN (18:08)
--- NOTE | 2016-12-01 18:48 | NUR ---
Hypotension Pt has been hypotensive since intubation. NS at 999cc/hr. propofol has been titrated on and off to provide sedation and in an attempt to lessen the hypotensive effects of the propofol. Fentanyl has also been started and it is currently at 25mcg. This has helped with his tremors noted in his upper extremities. PICC line placed. MD is aware of hypotension.
[2016-12-01 19:07] LABS: APPEARANCE,URINE CLEAR (CLEAR,HAZY); COLOR,URINE YELLOW (YELLOW); OCCULT BLOOD,URINE LARGE (NEGATIVE); UROBILINOGEN,URINE NORMAL (NORMAL)
--- NOTE | 2016-12-01 20:08 | DRSVH ---
PROCEDURE: X-RAY PICC LINE PLACEMENT BY NURSE ([id number]) INDICATIONS: POOR IV access FOR MEDICATIONS COMPARISON: None. FINDINGS: PICC was placed by the intravenous therapy team from the right side. Fluoroscopic spot fi lm demonstrates tip of PICC over the cavoatrial junction. IMPRESSION: Tip of PICC is projected over the cavoatrial junction. Dictated by: Farhana Rosa M.D. on 12/01/2016 at 20:06 Approved by: Farhana Rosa M.D. on 12/01/2016 at 20:07
--- NOTE | 2016-12-01 20:28 | ABG ---
DateTimeAnalyzed 20:25:00 -_ pH ____7.568 - 7.350 7.450 pCO2 ___38.7__ -mmHg 35.0 45.0 pO2 ___66.7__ -mmHg 69.0 116 HCO3- ___35.3__ -mmol/L 22.0 26.0 ABE ___12.0__ -mmol/L -2.0 2.0 tHb ___11.6__ -g/dL O2Hb ___93.8__ -% COHb ____1.9__ -% MetHb ____1.0__ -% sO2 ___96.6__ -% 25.0 FIO2 ___28.0__ -% PEEP ____5.0__ -cmH2O Set_RR ___24.0__ -b/min Vt __450.0__ -L Drawn By MD - Date/Time Notified____ 20:27:00 -_ Spontaneous_RR ___24.0__ -b/min Oxygen Device 1 VENTILATOR - Notified By MD - Notified Whom RN C.ABDIRIZAK - Age 69 -years B 755 -mmHg tO2 ___15.3__ -Vol% Bert test N/A -
[2016-12-01] MEDS: Norepineph 8,000 mCg/250 mL NS 8,000 MCG in IV Premix 1 EACH IV SCH (20:46)
[2016-12-01] MEDS: Meropenem Inj 1,000 MG in 0.9% Sodium Chloride 100 ML IV SCH (20:47)
[2016-12-02] VITALS (17 sets, daily range): BP systolic 85–146; BP diastolic 39–97; PULSE 71–94; RESP 13–19; O2SAT 95–98
[2016-12-02] MEDS: Albuterol-Ipratropium 3 mL Inhalation Solution NEB SCH ×9 (00:44→22:10)
[2016-12-02] MEDS: Chlorhexidine 0.12% 15 mL Oral Solution MT SCH ×6 (01:27→19:56)
[2016-12-02] MEDS: Heparin 5,000 Unit/mL Inj SUBQ SCH ×3 (01:27→16:50)
[2016-12-02] MEDS: MethylprednisoLONE Sodium Succinate 40 mg/mL Inj IVPUSH SCH ×2 (01:27→09:34)
[2016-12-02] MEDS: Meropenem Inj 1,000 MG in 0.9% Sodium Chloride 100 ML IV SCH ×3 (01:51→18:17)
[2016-12-02 02:05] LABS: Mean Corpuscular Hemoglobin 29.5 pg (27.0-35.0); Mean Corpuscular Volume 93.1 fL (81-100)
--- NOTE | 2016-12-02 05:14 | ABG ---
DateTimeAnalyzed 05:11:00 -_ pH ____7.500 - 7.350 7.450 pCO2 ___46.6__ -mmHg 35.0 45.0 pO2 ___62.9__ -mmHg 69.0 116 HCO3- ___36.0__ -mmol/L 22.0 26.0 ABE ___11.5__ -mmol/L -2.0 2.0 tHb ___11.4__ -g/dL O2Hb ___91.5__ -% COHb ____1.4__ -% MetHb ____1.0__ -% sO2 ___93.8__ -% 25.0 FIO2 ___30.0__ -% PEEP ____5.0__ -cmH2O Set_RR ___19.0__ -b/min Vt __450.0__ -L Drawn By MD - Date/Time Notified____ 05:13:00 -_ Spontaneous_RR ___19.0__ -b/min Oxygen Device 1 VENTILATOR - Notified By MD - Notified Whom RN C.ABDIRIZAK - Age 69 -years B 751 -mmHg tO2 ___14.7__ -Vol% Bert test N/A -
--- NOTE | 2016-12-02 06:12 | NUR ---
BP/Tremors/Sedation Pt hypotensive. CVP 12. Orders from MD to start Levophed gtt. Titrated gtt per protocol to maintain MAP >65. With any sort of stimulation, pt will start full body tremor/shiver that will go away after a couple minutes on own. Increased sedation/pain meds to prevent shiver. Pt did have lowgrade fever and is still being worked up for sepsis. Will continue to monitor. Care ongoing
[2016-12-02] MEDS: Propofol Inj 1,000,000 MCG in IV Premix 1 EACH IV SCH (06:49)
[2016-12-02] MEDS: Tiotropium 18mcg/Cap 5 Capsule Inhaler Kit INHALATION SCH (08:30)
[2016-12-02 08:33] LABS: Magnesium 1.9 mg/dL (1.6-2.6)
--- NOTE | 2016-12-02 09:29 | ABG ---
DateTimeAnalyzed 09:25:00 -_ pH ____7.445 - 7.350 7.450 pCO2 ___55.3__ -mmHg 35.0 45.0 pO2 ___55.9__ -mmHg 69.0 116 HCO3- ___37.4__ -mmol/L 22.0 26.0 ABE ___11.6__ -mmol/L -2.0 2.0 tHb ___11.8__ -g/dL O2Hb ___87.3__ -% COHb ____1.3__ -% MetHb ____1.0__ -% sO2 ___89.4__ -% 25.0 FIO2 ___35.0__ -% PRVC 450 - PEEP ____5.0__ -cmH2O Set_RR ___13.0__ -b/min Vt __470.0__ -L Drawn By jmw - Date/Time Notified____ 09:28:00 -_ Spontaneous_RR ___13.0__ -b/min Oxygen Device 1 VENTILATOR - Notified By jmw - Notified Whom DR KENDREGAN - Age 69 -years B 750 -mmHg tO2 ___14.4__ -Vol% OrderingPhysicianInitials bak - Bert test _Positive -
--- NOTE | 2016-12-02 10:53 | NUR ---
NUTRITION ASSESSMENT Assess: 76 YO M admitted to CCU for respiratory failure. Pt required mechanical ventilation after failing BiPAP on 12/01. Consult received to start tube feeds today. PMHX: HTN, afib, chronic respiratory failure, COPD/emphysema, CVA, HLD, carotid artery disease. DIET: NPO. LABS: Na 132, BUN 61, Cr 1.70, Glu 110, Lactic acid 4, Ca 7.5, T.bili 1.5, Phos 2.0 MEDICATIONS: Pressor, Propofol @ 8.3 ml/hr providing 219 kcal/day, Fentanyl, Solu-medrol. GI: 1 BM 12/02. SKIN: No issues noted. ANTHROPOMETRICS: Wt: 92.1 kg, BMI 32.8 kg/m2, Admit wt: 93.0 kg, IBW: 64.5 kg. ESTIMATED NEEDS: VENT/BMI Calories: 4372-0491 kcal/day (20-22 kcal/kg BW) Protein: 97-116 g/day (1.5-1.8 g/kg IBW) Fluids: 1841-6497 mL/day (1 mL/kcal) NUTRITION DIAGNOSIS: 1) Inadequate oral intake related to decreased ability to consume sufficient energy as evidenced by NPO/Vent status. INTERVENTION: 1) Recommend enteral nutrition of Pulmocare starting at 10 ml/hr, hold for 24 hours, once tolerance established advance 10 ml q 6 hr to goal rate of 60 ml/hr. At goal TF will provide 1980 kcal, (TF + Propofol = 2199 kcal/day), 83 g protein; meeting 100% calorie, 86% protein needs. Signed orders placed in chart. 2) Once tube feeds tolerated, add 1 packet Prosource protein BID to provide a total of 105 g protein; meeting 100% of protein requirements. 3) Adjust enteral feeding goal based on daily Propofol rate. MONITOR/EVALUATE: NPO/Vent status, labs, TF tolerance/advance, labs, POC, nutrition status. Follow per high nutrition risk guidelines.
--- NOTE | 2016-12-02 11:43 | NUR ---
Social Work Note: Continued Discharge Planning Data& Assessment: Pt has been intubated and requires vent support at this time. SW met with pt family at bedside to check in and assess for any unmet needs. Pt daughter and sister deny any needs at this time. SW phone number provided on pt whiteboard. No needs identified at this time. SW to continue to follow. Plan: Pt is intubated. SW to continue to follow for medical progression and prognosis. Pt daughter and sister deny any needs at this time. SW to continue to follow. ALEKSANDR Godoy
--- NOTE | 2016-12-02 11:45 | NUR ---
SHERIF Verbal consent with pt daughter and pt sister at bedside. Pt is on the vent and under active contact precautions. ALEKSANDR Godoy
--- NOTE | 2016-12-02 12:37 | PCM.CHPMED ---
Subjective Date of Service: Dec 02, 2016 Provider requesting consult: Bert De La Cruz MD Primary Physician: Admitting Physician: Ravi Noble MD Primary Care Physician: Kevin Zimmerman MD Attending Physician: Ravi Noble MD Chief Complaint: Chief Complaint: Acute hypoxemic, hypercarbic respiratory failure History of Present Illness: Pulmonology/ICU Consult: Attending Dr. Joiner, Requesting Physician Dr. De La Cruz. Reason for Consult: Ventilator management 76 male with PMH CABG sp stent placement 3 years ago, COPD 2/2 tobacco abuse, on home O2, HTN, HLD admitted to hospital for SOB which continued to worsen despite BiPAP with different size mask's. Pt was intubated for hypercapnic respiratory failure, refractory to BiPAP and pulmonology consulted to assist in ventilator management. leading up to this hospital admission Pt had reportedly been having an increase difficulty with his SOB that did not get better with his home O2. he has had no reported productive coughs, fevers or other flu like symptoms. he has had a twitching type of involuntary movement for over 1 year ( per admit note). Unable to obtain complete H&P secondary to patient intubated and sedated. PMH Past Medical History Hypertension Paroxysmal atrial fibrillation chronic respiratory failure COPD/emphysema CVA hyperlipidemia obstructive uropathy carotid artery disease with 50% to 79% narrowing on the left internal carotid. Surgical History stents placed lobectomy carotid endarterectomy laparotomy Reports: Appendectomy, CABG Home Medications Albuterol nebulizer 4 times a day when necessary ASA 81 mg daily Atorvastatin 40 mg at bedtime clopidogrel 75 mg daily doxazosin 2 mg at bedtime Ipratropium/albuterol 3 mg nebulizers 4 times a day when necessary Isosorbide mononitrate 60 mg daily Toprol tartrate 100 mg twice a day Mirtazapine 45 mg at bedtime Allergies: Coded Allergies: prednisone (Verified Allergy, Severe, 04/29/11) Sulfa (Sulfonamide Antibiotics) (Verified Allergy, Intermediate, 04/29/11) TAPE (Verified Allergy, Mild, 04/29/11) atorvastatin (Unverified Allergy, Unknown, 04/29/11) fluticasone (Unverified Allergy, Unknown, 04/29/11) lisinopril (Unverified Allergy, Unknown, 04/29/11) Social History Hx Alcohol Use: No (stopped in 1979)Hx Substance Use: NoHx Tobacco Use: Yes ( still smokes 5 cig day) Living Arrangement: Other (patient lives alone with supervision of his daughter) Exam Vital Signs Vital Sign - Last Date Time Temp Pulse Resp B/P Pulse Ox O2 Delivery O2 Flow Rate FiO2 12/02/16 12:13 62 125/83 95 45 12/02/16 11:59 Ventilator 12/02/16 11:59 36.9 13 11/30/16 20:28 3.00 Intake and Output 12/01/16 12/01/16 12/02/16 Cumulative From/Thru 15:00 23:00 07:00 11/28/16 13:58 - 12/02/16 06:49 Intake Total 1521 ml 690 ml 3979 ml Output Total 750 ml 300 ml 4275 ml Balance 771 ml 390 ml -296 ml Intake Oral 0 ml 1747 ml IV Total 1521 ml 690 ml 2232 ml Output Urine Total 450 ml 300 ml 3975 ml Gastric Drainage Total 300 ml 300 ml # Voids 3 # Bowel Movements 1 2 Additional Information: General: Intubated and sedated HEENT: Intubated Neck: No jugular venous distension. No bruits. Cardiovascular: Regular rate and rhythm with no murmurs appreciated Pulmonary: Clear to auscultation bilaterally with inspiratory crackles, and expiratory wheezes. Increased work of breathing with accessory muscle usage prior to intubation. Abdomen: Soft to palpation 4 quadrants. No hepatosplenomegaly or masses appreciated. Extremities: Bilateral lower extremity mild edema Neurological: Intubated and sedated. Ventilator settings: Tidal volume 450. Respiratory rate 13 FiO2 0.35%. PEEP 5. ABG: PH 7.5, PCO2 46.6, O2 62.9, HCO3 36 IV drips and Sedatives: Propofol 15, fentanyl 75 IV lines: PICC line I&O: In 1671, out 1025, total +646 Lab and Diagnostics Result Diagram: 12/02/1615312/02/16153 X-Rays, CTs and MRIs . X-RAY CHEST ONE VIEW, PORTABLE 11/28/2016 IMPRESSION: Findings suspicious for CHF. X-RAY CHEST ONE VIEW, PORTABLE 11/30/2016 IMPRESSION: Stable chest x-ray. X-RAY CHEST ONE VIEW, PORTABLE 12/01/2016 IMPRESSION: Mild interstitial prominence redemonstrated and either pleural scarring or trace left pleural effusion appears unchanged. CT BRAIN WITHOUT CONTRAST 11/28/2016 IMPRESSION: 1. No acute intracranial abnormalities. 2. Old lacunar infarcts in the left caudate/internal capsule and basal ganglia. 3. Cerebral volume loss and chronic microvascular ischemic changes. Additional Diagnostics: Echocardiogram Report Interpretation Summary The left ventricle is normal in size. The ejection fraction is estimated to be 65-70%. The right ventricle is not well visualized. The right ventricle grossly appears normal in size with probable normal systolic function. There is mild aortic regurgitation. Compared to the prior echo study, there has been no change in the severity of aortic regurgitation. Assessment & Plan Assessment 76 male past medical history COPD, he ate D status post stent placement. Intubated secondary to respiratory failure with toxemia and hypercarbia refractive to BiPAP treatment. 1. Acute on chronic respiratory failure with hypoxia and hypercarbia, POA. Patient was refractive to BiPAP treatment with multiple mask trials. Patient required intubation for ventilation support secondary to dramatic increase work of breathing and increasing hypoxemia and hypercarbia - Ventilator settings tidal volume 450, respiratory rate 13, PEEP 5, FiO2 35. - ABGs: PH 7.445, PCO2 55.3, PO2 55.9, HCO3 37.4 - Patient is tolerating ventilator well, most likely is at his CO2 baseline secondary to his long-standing COPD - We will continue with current ventilator settings while patient recovers from respiratory illness. 2. COPD exacerbation, POA. - Increase DuoNeb nebs every 2 - Decrease Solu-Medrol to 80 mg daily 3. Possible CAP, POA - WBC on admission 6.8, currently 11.7 (patient is receiving Solu-Medrol) - Pro calcitonin 0.05 on admit, 0.19 12/01/2016, we will continue to monitor - Patient has had one fever spike 12/02/2016 at 00:35 and 38.1 otherwise afebrile - CXR concerning for pneumonia/aspiration - Currently on meropenem - Continue to monitor Critical care time spent 90 minutes. Problems: Pain Evaluation: Adequate Pain Control VTE Prophylaxis: Sub-Q Heparin (Unfractionated) VTE Mechanical Devices: Intermittant Pneumatic CD Resuscitation Status: CPR: Attempt Resuscitation Attending Statement The patient was seen and examined together with Dr. Baumann on 12/02/2016 and I agree with the history, exam and plan as outlined in the note above. DHAVAL BAUMANN DO Dec 02, 2016 12:37 Hank Joiner MD Dec 07, 2016 11:11 Pain Evaluation: Adequate Pain Control VTE Prophylaxis: Sub-Q Heparin (Unfractionated) VTE Mechanical Devices: Intermittant Pneumatic CD Resuscitation Status: CPR: Attempt Resuscitation DHAVAL BAUMANN DO Dec 02, 2016 12:37
--- NOTE | 2016-12-02 14:27 | DRSVH ---
PROCEDURE: X-RAY CHEST ONE VIEW, PORTABLE ([id number]) INDICATIONS: dyspnea TECHNIQUE: One view of the chest was acquired. COMPARISON: [facility], CR, XR CHEST 1VW (PORTABLE), 12/01/2016, 16:15. [facility], CR, XR CHEST 1VW (PORTABLE), 12/01/2016, 11:32. FINDINGS: Surgical changes and devices: None. Lungs and pleura: No pleural effusions or pneumothorax. Lungs are mildly edematous. Mediastinum: Mediastinal contours appear normal. Heart size is at the upper limits of normal. Bones and chest wall: No suspicious bony lesions. Overlying soft tissues appear unremarkable. IMPRESSION: Large lung volumes, possible COPD. Prior CABG, chronic mild CHF pattern but no definite acute disease is seen. Dictated by: Honorio Meredith M.D. on 12/02/2016 at 14:25 Approved by: Honorio Meredith M.D. on 12/02/2016 at 14:25
--- NOTE | 2016-12-02 14:40 | PCM.PNMED ---
Subjective Date of Service Dec 02, 2016 Subjective patient is intubated and sedated. He appears comfortable on propofol and fentanyl. Exam Vital Signs Vital Sign - Last Date Time Temp Pulse Resp B/P Pulse Ox O2 Delivery O2 Flow Rate FiO2 12/02/16 12:13 62 125/83 95 45 12/02/16 11:59 Ventilator 12/02/16 11:59 36.9 13 11/30/16 20:28 3.00 Intake and Output 12/01/16 12/01/16 12/02/16 Cumulative From/Thru 15:00 23:00 07:00 11/28/16 13:58 - 12/02/16 06:49 Intake Total 1521 ml 690 ml 3979 ml Output Total 750 ml 300 ml 4275 ml Balance 771 ml 390 ml -296 ml Intake Oral 0 ml 1747 ml IV Total 1521 ml 690 ml 2232 ml Output Urine Total 450 ml 300 ml 3975 ml Gastric Drainage Total 300 ml 300 ml # Voids 3 # Bowel Movements 1 2 Exam Intubated and sedated. Anicteric sclera Lungs are clear he is being actively ventilated. Heart is regular without murmur gallop or rub Abdomen is distended but nontender Extremities with 1+ edema and good pedal pulses. Skin is free of rash or lesions. IVs and Medications Medications Reviewed: Medications were reviewed in detail Lab and Diagnostics Result Diagram: 12/02/16 0154 12/02/16 0154 X-Rays, CTs and MRIs Accessory reviewed and show pulmonary edema. Lead EKG show normal sinus rhythm Assessment & Plan 1. Acute on chronic respiratory failure with hypoxia and hypercarbia, POA. This appears to represent acute heart failure. His echo indicates probable diastolic dysfunction. However does have COPD with [id number] history of smoking. The patient was intubated yesterday for progressive respiratory failure with hypercarbia. His PCO2 had gone from 8200 in spite of being on BiPAP. Long discussion with the family indicated that they did want intubation and full level of care. He was intubated had transient hypotension after which was corrected with fluids. The patient had a parainfluenza PCR which was positive. He was started on empiric antibiotics. Today he is clinically relatively stable and still requiring pressors. He was started on empiric antibiotics yet his blood cultures and sputum cultures at this point are negative. 2. Parainfluenza URI/pneumonia. POA. Symptomatic treatment the patient is being covered with meropenem for possible secondary bacterial pneumonia with cultures pending. 2. Possible Acute on chronic diastolic heart failure. POA. The thought initially was that he was having a component of diastolic heart failure. This is less clear. Certainly he cannot be diuresed at this point as he has become more ill and requiring pressors. 3. COPD exacerbation,POA. We will continue to use IV steroids and bronchodilators. 4. Essential hypertension, uncontrolled. POA. The patient will have these medications held as he is currently septic. 5. Hyperkalemia. POA. Resolved, follow with daily labs.. 6. Chronic respiratory failure on home oxygen, POA 7. History of coronary artery disease status post CABG, POA 8. Hypercholesterolemia, POA 9. BPH, POA Pain Evaluation: Adequate Pain Control VTE Prophylaxis: Sub-Q Heparin (Unfractionated) VTE Mechanical Devices: Intermittant Pneumatic CD Resuscitation Status: CPR: Attempt Resuscitation Time spent 45 minutes Bert De La Cruz MD Dec 02, 2016 14:40
--- NOTE | 2016-12-02 15:02 | CONS ---
[address] [address] CONSULTATION REPORT PATIENT: MICHAEL UNDERWOOD : 1940 MR#: [id number] ADMIT: 11/28/2016 JOB ID: [id number] DATE OF SERVICE: 12/02/2016 INFECTIOUS DISEASE CONSULTATION: I thank Dr. Hank Joiner for this consultation. REASON FOR CONSULT: Respiratory failure with viral pneumonia and possible superimposed bacterial pneumonia. HISTORY OF PRESENT ILLNESS: The patient is a 76-year-old gentleman with longstanding COPD as well as possible diastolic heart dysfunction and congestive heart failure. He was admitted to this facility four days ago, back on November 28, with progressive shortness of breath. There is little history prior to admission. The patient is now intubated, which makes things difficult; but, according to family, the patient became more short of breath over a period of a few days. At baseline he is a COPD patient dependent on home oxygen, so he is chronically short of breath, but this apparently became worse in the days leading up to admission. According to family members who were interviewed there was no specific history of fevers, chills, sweats, or increased sputum production, but rather just worsening shortness of breath associated with increasing blood pressure. Because of his underlying history of cardiac and pulmonary disease the patient was transported here and attention was directed towards a COPD "tune-up" as well as evaluating his cardiac function and trying to optimize his fluid balance. Unfortunately over his first couple of days in the hospital his respiratory function deteriorated to the point where the patient had to make a decision about intubation and that was accomplished yesterday, December 01. Since then, the patient has been in the ICU and being mechanically ventilated. About the time he was intubated, he had a period of hypotension which required vasopressor agents but has subsequently resolved and today the patient is more or less normotensive with a mildly decreased diastolic blood pressure maintained without great difficulty on the ventilator. Because of concerns about possible infection, a variety of studies were ordered including a viral multiplex PCR study which was positive for parainfluenza virus 4. Additional studies have been done to evaluate the possibility of bacterial infection and in the meantime the patient has been started on meropenem. ID is consulted regarding the need for continued antibacterial agents in this complex and critically ill gentleman. No history is available from the patient as he is intubated and sedated. He does open his eyes and follows commands intermittently but does not interact enough to provide any additional historical details. This case was discussed in detail with the ICU team during rounds this morning, however, and again with the staff here in the ICU this afternoon. PAST MEDICAL HISTORY: 1. COPD with oxygen dependence in a patient who quit smoking three years ago. 2. Organic heart disease. a. Coronary artery disease status post CABG. b. Diastolic congestive heart failure. 3. Hypertension. 4. Hyperlipidemia. 5. History of CVA in 2010. 6. Paroxysmal atrial fibrillation. 7. History of obstructive uropathy. 8. Peripheral vascular disease. 9. Obstructive sleep apnea. 10. History of chronic renal insufficiency. 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 He does not drink alcohol. He was a cigarette smoker until three years ago when he quit. He lives with his family. FAMILY HISTORY: Negative for tuberculosis in first-degree relatives. REVIEW OF SYSTEMS: Not possible as the patient is intubated and sedated at this point. PHYSICAL EXAMINATION: Reveals an afebrile gentleman temperature 36.9, pulse 62. Blood pressure is currently 125/83, he is not on vasopressor agents. He is on 45% on the ventilator and saturating well. The patient intermittently opens his eyes and at some points does appear to track, but not consistently. He did follow some commands such as squeezing hands and therefore does seem to be aware but not completely interactive. There is no evidence for head trauma. No temporal wasting. No conjunctivitis or scleral icterus. He does not have an NG tube. His nose appears normal. Oral gastric tube and oral endotracheal tube in good position. Neck without obvious adenopathy or JVD. A central line in the right neck is in good position, without evidence of inflammation. Lungs notable for coarse breath sounds bilaterally without particular focality. Cardiac tones regular rate and rhythm without significant murmur. Heart sounds are a bit distant. Abdomen soft and nontender. No organomegaly or ascites. The penis and scrotum appear normal. He has a Francisco catheter. No suprapubic fullness. The extremities are notable for fairly minimal edema in the lower extremities. His feet are warm and reasonably well perfused. There is no peripheral edema. No evidence of cellulitis in the lower extremities. No evidence of synovitis anywhere. The patient's neurologic exam is not easy to do, given his intubated and sedated status, but he does move his hands bilaterally for certain and does appear to track and make some attempt to follow some commands. The remainder of the exam is unremarkable. LABORATORIES: Include a white count of 11,700, platelet count 127,000. Note that the differential shows a left shift consistent with the use of steroids. Creatinine is 1.7 and slowly rising. It was about half that at 0.89 three days ago, so it has almost doubled. Lactic acid is still elevated, it is 2.4. When he came in, it was actually normal. LFTs normal except for bilirubin 1.5, alk phos though is 61. Albumin 3.5. Procalcitonin 0.19 and that is consistent with his creatinine. When he came in his creatinine was lower and his procalcitonin was 0.05. Urinalysis without significant pyuria though he does have a lot a red cells in his urine. Respiratory viral PCR positive for parainfluenza 4, as noted. Sputum Gram stain with many polys and mixed amie, which would not be inconsistent with a viral pneumonia. Blood cultures negative x4 sets. Urine culture is currently negative. Chest radiographs on admission were consistent with congestive heart failure. More recent chest x-rays show left basilar infiltrate with small left pleural effusion, perhaps consistent with infection. We compared today's chest radiograph to ones done earlier in the hospital stay. There is certainly a hint of something going on at the left base but it is unclear if that was present on admission or not, and it is certainly unclear whether that is viral or bacterial if in fact there is an infiltrate. IMPRESSION: This is an unfortunate gentleman with advanced cardiopulmonary disease who was admitted with worsening of his chronic respiratory failure. He deteriorated after a couple of days and now has been intubated. Little in his history suggests infection as he has had no fevers except for a minor 38.1 temperature and he has not manifested evidence of sustained septic shock. His procalcitonin is normal and his white blood count is minimally elevated in a pattern consistent with his use of steroids. The parainfluenza virus type 4 has been implicated as a cause of severe pneumonia on occasion and certainly could account for his decompensation as well as his low-grade fever. Given the fact there is little to suggest bacterial infection, I think our best course is to continue the meropenem for a day or two while we round up our usual collection of specimens and if these are negative, and his clinical picture continues to appear more viral than bacterial, will stop the meropenem within the next day or two. RECOMMENDATIONS: 1. Urine antigens will be collected. 2. Will follow up on procalcitonin and labs tomorrow. 3. We await the pending blood cultures and other studies. If these are all negative we will likely stop antibiotics tomorrow.
--- NOTE | 2016-12-02 17:24 | NUR ---
P: Respiratory, Hemodynamics, Neuro, Skin, Nutrition, Social I,E: Pt continues on the vent, and settings were adjusted this am and ABG's improved. Pt does not have much in the way of secretions, scant thin white suctioned infrequently today. Pt is no longer on levophed and BP has been in the 90's to 110's sys. HR is in the 80's mostly today, SR with PAC's. Pt is on fentanyl and propofol and appears comfortable on this. He is able to wake, open his eyes and nod and shake his head approp. Pt has been turned Q2 and his heels have been floated, he does not have any skin issues that I can see. Tube feeds started at 10cc/hr and will be advanced as tolerated and ordered. Pt has great family support and family have been in and out today visiting.
[2016-12-02] MEDS ORDERED: Potassium Phos (mEq) Inj 40 MEQ in Dextrose 5% 500 ML IV ONE (17:30)
--- NOTE | 2016-12-02 17:58 | ABG ---
DateTimeAnalyzed 17:54:00 -_ pH ____7.420 - 7.350 7.450 pCO2 ___60.6__ -mmHg 35.0 45.0 pO2 ___95.6__ -mmHg 69.0 116 HCO3- ___38.6__ -mmol/L 22.0 26.0 ABE ___12.3__ -mmol/L -2.0 2.0 tHb ___11.1__ -g/dL O2Hb ___95.8__ -% COHb ____0.9__ -% MetHb ____1.0__ -% sO2 ___97.7__ -% 25.0 FIO2 ___45.0__ -% PRVC 450 - PEEP ____5.0__ -cmH2O Set_RR ___13.0__ -b/min Vt __470.0__ -L Drawn By jmw - Date/Time Notified____ 17:57:00 -_ Spontaneous_RR ___13.0__ -b/min Oxygen Device 1 VENTILATOR - Notified By jmw - Notified Whom DR JUAN - Age 69 -years B 750 -mmHg tO2 ___15.1__ -Vol% Bert test _Positive -
[2016-12-02] MEDS: Norepineph 8,000 mCg/250 mL NS 8,000 MCG in IV Premix 1 EACH IV SCH (20:22)
[2016-12-03] VITALS (21 sets, daily range): BP systolic 102–130; BP diastolic 39–97; PULSE 82–102; RESP 13–14; O2SAT 94–98
[2016-12-03] MEDS: Albuterol-Ipratropium 3 mL Inhalation Solution NEB SCH ×12 (00:03→21:57)
[2016-12-03] MEDS: Heparin 5,000 Unit/mL Inj SUBQ SCH ×3 (01:44→16:29)
[2016-12-03] MEDS: Chlorhexidine 0.12% 15 mL Oral Solution MT SCH ×6 (01:44→20:54)
[2016-12-03] MEDS: fentaNYL 2,500 mCg/250 mL 2,500 MCG in IV Premix 1 EACH IV PRN (01:45)
[2016-12-03] MEDS: Meropenem Inj 1,000 MG in 0.9% Sodium Chloride 100 ML IV SCH (02:53)
--- NOTE | 2016-12-03 04:37 | ABG ---
DateTimeAnalyzed 04:33:00 -_ pH ____7.439 - 7.350 7.450 pCO2 ___57.5__ -mmHg 35.0 45.0 pO2 ___86.6__ -mmHg 69.0 116 HCO3- ___38.3__ -mmol/L 22.0 26.0 ABE ___12.4__ -mmol/L -2.0 2.0 tHb ___10.8__ -g/dL O2Hb ___95.7__ -% COHb ____0.8__ -% MetHb ____1.1__ -% sO2 ___97.6__ -% 25.0 FIO2 ___45.0__ -% PRVC 450 - PEEP ____5.0__ -cmH2O Set_RR ___13.0__ -b/min Vt __501.0__ -L Drawn By RB - Date/Time Notified____ 04:37:00 -_ Spontaneous_RR ___13.0__ -b/min Oxygen Device 1 VENTILATOR - Notified By RB - Notified Whom DANIEL K, RN - Age 69 -years B 749 -mmHg tO2 ___14.6__ -Vol% Bert test _Positive -
--- NOTE | 2016-12-03 05:20 | NUR ---
P: neuros I: propofol and fentanyl drips E: A/O. Will nod yes or no. Nods no to pain, N/V. When care given BUEs tremble. Has more BUE strength than BLEs. Propofol at 20mcg and fentanyl drip at 75mcg for comfort and sedation. Occasionally overbreathes vent rate. Tele SR w/ PACs. SBP 90-120s, DBP 30-40s. Levophed turned off 12/02 at 0900. Marginal maps. UOP 30ml/hr, jose. CVP 9. Abdomen round, distended, moderately firm. Rare BTs. Trickle TF. No stool.
[2016-12-03 06:11] LABS: Mean Corpuscular Volume 93.5 fL (81-100)
[2016-12-03] MEDS: Propofol Inj 1,000,000 MCG in IV Premix 1 EACH IV SCH ×2 (08:08→16:39)
--- NOTE | 2016-12-03 08:53 | DRSVH ---
PROCEDURE: X-RAY CHEST ONE VIEW, PORTABLE ([id number]) INDICATIONS: Intubated on Ventilator TECHNIQUE: One view of the chest was acquired. COMPARISON: [facility], CR, XR CHEST 1VW (PORTABLE), 12/02/2016, 9:03. FINDINGS: Surgical changes and devices: Stable position ETT, nasogastric tube and right PICC. Lungs and pleura: Interstitium is prominent consistent with mild pulmonary edema, not significantly c hanged from the prior examination. Trace pleural effusions. No pneumothorax. Mediastinum: Mediastinal contours appear normal. Heart size is normal. Bones and chest wall: No suspicious bony lesions. Overlying soft tissues appear unremarkable. IMPRESSION: Stable chest with persistent pulmonary edema. Dictated by: Simón Hernandez RRA Interpreted: Elda Owens MD on 12/03/2016 at 8:52 Transcribed by: JAEL on 12/03/2016 at 8:53 Approved by: Elda Owens M.D. on 12/03/2016 at 13:43
[2016-12-03] MEDS: 0.9% Sodium Chloride 1,000 ML IV SCH ×6 (09:16→21:10)
--- NOTE | 2016-12-03 09:17 | PROG NOTE ---
[address] [address] PROGRESS NOTE PATIENT: MICHAEL UNDERWOOD : 1940 MR#: [id number] ADMIT: 11/28/2016 JOB ID: [id number] DATE: 12/03/2016 PULMONARY CRITICAL CARE FOLLOW UP NOTE: PROBLEM LIST: 1. Acute exacerbation of COPD. 2. Acute on chronic hypoxemic hypercarbic respiratory failure. 3. Paroxysmal atrial fibrillation. 4. Past history of coronary artery disease status post CABG. SUBJECTIVE: None. Patient currently sedated on ventilator, though does have his eyes open. OBJECTIVE: Temperature 37, pulse mid 90s, respiratory rate 14, blood pressure 102/47, O2 sat on FiO2 45%, PEEP of 5, is 97%. I and O shows 1 L in, 0.9 liters out. General appearance: Comfortable appearing. Has his eyes opened. Questionable response. I think he is intubating that there is no abdominal pain and we would like to though his replies are difficult to ascertain. Conjunctivae are pink. Chest: Markedly distant breath sounds. There are few crackles at the left lower lateral lung field. Remainder of the lung dinh are clear though with almost absent breath sounds at the bases. Heart: Regular rhythm. Heart tones normal. Abdomen: Soft. Bowel tones present. Extremities: Maybe trace pretibial edema. LABORATORY DATA: Shows a white count of 7000. No differential available. Hemoglobin 10.2, this continues to slowly decrease. Platelet count 93,000, again slowly decreasing. Sodium 132, potassium 3.7, chloride 85, CO2 is 35. BUN 68 and rising. Creatinine 1.9 and rising. Glucose 166. Lactic acid was 2.4 yesterday, has not been repeated. Calcium 7.6 with an albumin of 3.0. Phosphorus low at 2, has not been repeated yesterday. Transaminases are normal. Streptococcus pneumoniae urine antigen is negative. MRSA nasal screen is negative. Nasopharyngeal viral PCR is positive for parainfluenza 4. Chest x-ray pending. Arterial blood gas on tidal volume of 500, PEEP of 5, rate of 13, FiO2 0.45 shows a pO2 of 86, pCO2 of 57, pH of 7.43. ASSESSMENT: 1. Acute on chronic hypoxemic hypercarbic respiratory failure. Vent settings are a bit generous. Probably does not need such an increased minute ventilation. Normal CO2 is probably in the low 60s given his pH of 7.43. Oxygenation is acceptable though a little off with a FiO2 of 0.45 and a pO2 only of 86 with a PEEP of 5. Likely represents the effect of the parainfluenza 4 virus playing a bit more havoc in this patient than others. 2. Renal failure. Currently receiving some tube feeding. Creatinine has been rising since admission. Needs to be dealt with. At this point hopefully simple fluid resuscitation will help though elderly folks may get egregious renal problems from minimal perturbations. 3. Vent settings. Will speak with respiratory therapy. The inspiratory flow seems a bit low to me. The patient, however, seems comfortable and is not having any problems with auto PEEP that he was yesterday. Hard to complain about some non abnormalities though it may make the patient a bit more comfortable. However, I think we can decrease the frequency of nebulized bronchodilators as they have seemed to be effective in alleviating his auto PEEP with bronchodilator medications. Currently receiving the nebulizer every two hours. Could probably do to every four and that is prednisolone currently at 1 mg/kg per day which is an appropriate dose. PLAN: 1. Decrease the nebulized bronchodilators to 4. 2. IV fluids using LR which would give him a bit of potassium volume. Recheck lactic acid. 3. Recheck phosphorus. If phosphorus is low, we can replace it with K-Phos. Otherwise we can use potassium in the IV and perhaps sodium phos depending on our phosphorus and potassium values. TIME SPENT: So far in critical care 40 minutes.
[2016-12-03] MEDS: MethylprednisoLONE Sodium Succinate 40 mg/mL Inj IVPUSH SCH (09:20)
[2016-12-03] MEDS: Polyethylene Glycol (PEG) 17 Gm Powder PO SCH ×2 (09:20→20:53)
--- NOTE | 2016-12-03 09:27 | PCM.PNMED ---
Subjective Date of Service Dec 03, 2016 Subjective Patient is currently intubated. Appears comfortable at this point. Exam Vital Signs Vital Sign - Last Date Time Temp Pulse Resp B/P Pulse Ox O2 Delivery O2 Flow Rate FiO2 12/03/16 07:57 105 102/47 97 45 12/03/16 04:30 Ventilator 12/03/16 04:30 37.0 14 3.00 Intake and Output 12/02/16 12/02/16 12/03/16 Cumulative From/Thru 14:59 22:59 06:59 11/28/16 13:58 - 12/03/16 05:39 Intake Total 382 ml 1382 ml 5743 ml Output Total 650 ml 450 ml 5375 ml Balance -268 ml 932 ml 368 ml Intake Oral 1747 ml IV Total 312 ml 1196 ml 3740 ml Tube Feeding 30 ml 96 ml 126 ml Tube Irrigant 40 ml 90 ml 130 ml Output Urine Total 500 ml 450 ml 4925 ml Gastric Drainage Total 150 ml 450 ml # Voids 3 # Bowel Movements 0 2 Exam Constitutional: Elderly male in no acute distress currently intubated Head: Normocephalic atraumatic Chest: Some scattered wheezes diffusely and decreased breath sounds at his bases particularly the right Cor: Regular rate and rhythm S1-S2 Abdomen: Soft nontender bowel sounds present Extremities: Trace bilateral pedal edema Skin: No rashes Neuro: Currently sedated on able to assess orientation. Does move all extremities to painful stimuli area Lab and Diagnostics Laboratory Tests 72 Hours Test 12/01/16 09:20 12/01/16 12:10 12/01/16 18:39 12/01/16 20:00 White Blood Count 10.2th/mm3 (3.8-10.1) Red Blood Count 4.38mil/mm3 (4.40-5.80) Hemoglobin 13.0g/dL (13.8-17.2) Hematocrit 41.2% (41.0-50.0) Mean Corpuscular Volume 94.1fL (81-100) Mean Corpuscular Hemoglobin 29.7pg (27.0-35.0) Mean Corpuscular Hemoglobin Concent 31.6% (32.0-37.0) Red Cell Distribution Width 12.2% (12.3-15.4) Platelet Count 127bil/L (150-400) Sodium Level 128mEq/L (134-144) Potassium Level 4.8mEq/L (3.5-5.2) Chloride Level 77mEq/L (97-108) Carbon Dioxide Level 39mmol/L (18-29) Blood Urea Nitrogen 45mg/dL (8-27) Creatinine 1.24mg/dL (0.76-1.27) Estimat Glomerular Filtration Rate 60mL/min (>59) Glucose Level 147mg/dL (60-99) Calcium Level 8.4mg/dL (8.5-10.1) Total Bilirubin 1.3mg/dL (0.0-1.2) Aspartate Amino Transf (AST/SGOT) 77U/L (0-50) Alanine Aminotransferase (ALT/SGPT) 44U/L (0-44) Alkaline Phosphatase 84U/L (25-160) Troponin T 0.010ug/L (0.0-0.011) Total Protein 6.4g/dL (6.4-8.4) Albumin 4.4g/dL (3.4-5.0) Triglycerides Level 163mg/dL (0-149) Procalcitonin 0.10ng/mL (0.00-0.08) 0.19ng/mL (0.00-0.08) Lactic Acid Level 1.0mmol/L (0.4-2.0) 3.4mmol/L (0.4-2.0) Urine Color Yellow (YELLOW) Urine Appearance Clear (CLEAR,HAZY) Urine pH 6.0 (5.0-8.0) Urine Specific [place] 1.018 (1.003-1.035) Urine Protein 100mg/dL (NEG,TRACE) Urine Glucose (UA) Negativemg/dL (NEGATIVE) Urine Ketones Negativemg/dL (NEGATIVE) Urine Occult Blood Large (NEGATIVE) Urine Nitrite Negative (NEGATIVE) Urine Bilirubin Negative (NEGATIVE) Urine Urobilinogen Normalmg/dL (NORMAL) Urine Leukocyte Esterase Negative (NEGATIVE) Urine RBC >50/hpf (0-2) Urine WBC 0-5/hpf (0-5) Urine Epithelial Cells Few/hpf (NONE-MOD) Urine Crystals None seen (NONE SEEN) Urine Bacteria Moderate/hpf (NONE-FEW) Urine Hyaline Casts None/lpf (NONE) Urine Granular Casts None seen (NONE SEEN) Urine Waxy Casts None seen (NONE SEEN) Urine Red Blood Cell Casts None seen (NONE SEEN) Urine White Blood Cell Casts None seen (NONE SEEN) Urine Mucus None seen (None Seen) Urine Trichomonas None seen (NONE SEEN) Urine Yeast None (NONE SEEN) Urinalysis Comment None Urine Culture Reflexed Indicated Test 12/02/16 01:54 12/02/16 15:40 12/02/16 16:30 12/03/16 05:35 White Blood Count 11.7th/mm3 (3.8-10.1) 7.0th/mm3 (3.8-10.1) Red Blood Count 3.93mil/mm3 (4.40-5.80) 3.52mil/mm3 (4.40-5.80) Hemoglobin 11.6g/dL (13.8-17.2) 10.2g/dL (13.8-17.2) Hematocrit 36.6% (41.0-50.0) 32.9% (41.0-50.0) Mean Corpuscular Volume 93.1fL (81-100) 93.5fL (81-100) Mean Corpuscular Hemoglobin 29.5pg (27.0-35.0) 29.0pg (27.0-35.0) Mean Corpuscular Hemoglobin Concent 31.7% (32.0-37.0) 31.0% (32.0-37.0) Red Cell Distribution Width 12.2% (12.3-15.4) 12.0% (12.3-15.4) Platelet Count 127bil/L (150-400) 93bil/L (150-400) Sodium Level 132mEq/L (134-144) 132mEq/L (134-144) Potassium Level 3.9mEq/L (3.5-5.2) 3.7mEq/L (3.5-5.2) Chloride Level 85mEq/L (97-108) 85mEq/L (97-108) Carbon Dioxide Level 32mmol/L (18-29) 35mmol/L (18-29) Blood Urea Nitrogen 61mg/dL (8-27) 68mg/dL (8-27) Creatinine 1.70mg/dL (0.76-1.27) 1.90mg/dL (0.76-1.27) Estimat Glomerular Filtration Rate 42mL/min (>59) 37mL/min (>59) Glucose Level 110mg/dL (60-99) 166mg/dL (60-99) Lactic Acid Level 2.4mmol/L (0.4-2.0) Calcium Level 7.5mg/dL (8.5-10.1) 7.6mg/dL (8.5-10.1) Phosphorus Level 2.0mg/dL (2.5-4.9) 3.8mg/dL (2.5-4.9) Magnesium Level 1.9mg/dL (1.6-2.6) Total Bilirubin 1.5mg/dL (0.0-1.2) 1.0mg/dL (0.0-1.2) Aspartate Amino Transf (AST/SGOT) 50U/L (0-50) 42U/L (0-50) Alanine Aminotransferase (ALT/SGPT) 35U/L (0-44) 30U/L (0-44) Alkaline Phosphatase 61U/L (25-160) 50U/L (25-160) Total Protein 4.9g/dL (6.4-8.4) 4.5g/dL (6.4-8.4) Albumin 3.5g/dL (3.4-5.0) 3.0g/dL (3.4-5.0) Urine Legionella pneumophilia Ag Negative (Negative) Triglycerides Level 227mg/dL (0-149) Procalcitonin 0.24ng/mL (0.00-0.08) Result Diagram: 12/03/16 0535 12/03/16 0535 X-Rays, CTs and MRIs Accessory reviewed and show pulmonary edema. Lead EKG show normal sinus rhythm Additional Diagnostics MICHAEL UNDERWOOD 1940 Male DateTimeAnalyzed 04:33:00 -_ pH ____7.439 - 7.350 7.450 pCO2 ___57.5__ -mmHg 35.0 45.0 pO2 ___86.6__ -mmHg 69.0 116 HCO3- ___38.3__ -mmol/L 22.0 26.0 ABE ___12.4__ -mmol/L -2.0 2.0 tHb ___10.8__ -g/dL O2Hb ___95.7__ -% COHb ____0.8__ -% MetHb ____1.1__ -% sO2 ___97.6__ -% 25.0 FIO2 ___45.0__ -% PRVC 450 - PEEP ____5.0__ -cmH2O Set_RR ___13.0__ -b/min Vt __501.0__ -L Drawn By RB - Date/Time Notified____ 04:37:00 -_ Spontaneous_RR ___13.0__ -b/min Oxygen Device 1 VENTILATOR - Notified By RB - Notified Whom DANIEL K, RN - Age 69 -years B 749 -mmHg tO2 ___14.6__ -Vol% Bert test _Positive - Assessment & Plan 1. Acute on chronic respiratory failure with hypoxia and hypercarbia, POA. This appears to represent acute heart failure. His echo indicates probable diastolic dysfunction. However does have COPD with [id number] history of smoking. Patient is positive for parainfluenza on respiratory PCR. The patient was intubated yesterday for progressive respiratory failure with hypercarbia. His PCO2 had gone from 8200 in spite of being on BiPAP. Long discussion with the family indicated that they did want intubation and full level of care. He was intubated had transient hypotension after which was corrected with fluids. The patient had a parainfluenza PCR which was positive. He was started on empiric antibiotics. Today he is clinically relatively stable and still requiring pressors. He was started on empiric antibiotics yet his blood cultures and sputum cultures at this point are negative. After discussion with infectious disease today they recommend descending IV meropenem and see no need for IV antibiotics. Consider spontaneous breathing trial today. 2. Parainfluenza URI/pneumonia. POA. Symptomatic treatment the patient is being covered with meropenem for possible secondary bacterial pneumonia with cultures pending. DC IV meropenem today as noted above. No evidence clinically of pneumonia. 2. Possible Acute on chronic diastolic heart failure. POA. The thought initially was that he was having a component of diastolic heart failure. This is less clear. Certainly he cannot be diuresed at this point as he has become more ill and requiring pressors. Currently off pressors but actually seems to be volume depleted today. 3. COPD exacerbation,POA. We will continue to use IV steroids and bronchodilators. Check 4 times a day blood sugars and place on subcutaneous regular insulin protocol 4. Essential hypertension, uncontrolled. POA. The patient will have these medications held. 5. Hyperkalemia. POA. Resolved, follow with daily labs.. 6. Chronic respiratory failure on home oxygen, POA 7. History of coronary artery disease status post CABG, POA 8. Hypercholesterolemia, POA 9. BPH, POA 10. Acute kidney failure, not present on admission Suspect is due from volume depletion and will initiate IV normal saline at 100 mils per hour and monitor Check UA Check renal ultrasound. VTE Prophylaxis: Sub-Q Heparin (Unfractionated) VTE Mechanical Devices: Intermittant Pneumatic CD Resuscitation Status: CPR: Attempt Resuscitation Time spent 40 minutes Roxie Selby MD Dec 03, 2016 09:27
[2016-12-03] MEDS: Famotidine Inj 20 MG in IV Premix 1 EACH IV SCH ×2 (09:29→20:54)
--- NOTE | 2016-12-03 10:16 | PROG NOTE ---
[address] [address] PROGRESS NOTE PATIENT: MICHAEL UNDERWOOD : 1940 MR#: [id number] ADMIT: 11/28/2016 JOB ID: [id number] DATE: 12/03/2016 INFECTIOUS DISEASE FOLLOWUP NOTE: REASON FOR FOLLOWUP: Ventilator-dependent respiratory failure at least in part related to parainfluenza virus #4 infection. INTERVAL HISTORY: Overnight, the patient has improved substantially. He remains on the ventilator but he is now fully awake. He denies any fevers or chills. He denies having any pain, and he denies air hunger. He expresses a strong desire to be taken off the ventilator. This case was discussed in great detail with the ICU team during rounds this morning. PHYSICAL EXAMINATION: Reveals an afebrile gentleman. Temp 37 degrees, pulse 105, respiratory rate 14, blood pressure 102/47. He is saturating well on 45% on the ventilator. Eyes without scleral icterus. Oral cavity with endotracheal tube and oral gastric tube in position. Neck: Benign. Lungs: Relatively clear with decreased air flow bilaterally. A few crackles at the bases. Cardiac tones without new murmur. Abdomen: Negative. No skin rash. LABORATORIES: Include a white count of 7000, platelet count has dropped to 93,000. Creatinine is 1.9. Procalcitonin 0.24. LFT are normal. Urine legionella antigen negative. Urine pneumococcal antigen negative. Blood cultures negative. MRSA screen negative. Respiratory viral PCR panel positive for parainfluenza virus 4. Today's chest x-ray shows mildly prominent interstitium, perhaps consistent with fluid overload. IMPRESSION: This is a difficult patient with longstanding chronic obstructive pulmonary disease who is admitted with respiratory failure and intubated. Initial concern, of course, was directed towards the possibility of bacterial pneumonia but all we have evidence for at this point is parainfluenza virus 4, without evidence of bacterial superinfection. Given his absence of fever, his benign and improving physical exam and his negative cultures except for the viral PCR, I think we can reasonably conclude that this is chronic obstructive pulmonary disease exacerbation triggered by parainfluenza virus 4, without evidence of bacterial infection. RECOMMENDATIONS: 1. Will discontinue all antibiotics at this time and observe. 2. This decision was undertaken after extensive discussions during ICU rounds this morning. 3. Will continue to follow his cultures.
[2016-12-03] MEDS: Insulin Human REGular 300 Unit/3 mL Inj SUBQ SCH ×3 (10:37→21:38)
[2016-12-03] MEDS: Tiotropium 18mcg/Cap 5 Capsule Inhaler Kit INHALATION SCH (11:39)
--- NOTE | 2016-12-03 15:28 | NUR ---
Sedation/Respiratory Patient remains on Propofol which is now down to 10 mcg/kg/min and Fentanyl at 75 mcg/hr. Patient opens eyes and nods to questions. He is weak, but will squeeze hands upon command. Sleeping intermittently, but tremulous when stimulated. This is not new. PT attempted to work with patient, but patient effort was almost none. On vent at 45%, 5, 450, 13. Sats remain 98%. Lungs decreased in bases. RT attempted PST, but failed. Continuing with POC.
--- NOTE | 2016-12-03 15:33 | NUR ---
Evaluation completed. Please go to "Notes" then click on "Assessments and Notes" (bottom left corner of screen). Then select appropriate discipline tab on top of screen.
--- NOTE | 2016-12-03 17:00 | DRSVH ---
PROCEDURE: US RENAL SONOGRAM INDICATIONS: worsening gfr TECHNIQUE: Real-time scanning was performed of the kidneys and bladder, with image documentation. COMPARISON: None. FINDINGS: Kidneys: Kidneys are normal in size. Right kidney measures 9.8 cm long; left kidney measures 10.4 c m long. Right renal cortical thickness is .8 cm; left renal cortical thickness is 1.0 cm. Renal cor tical echotexture is normal. No hydronephrosis or nephrolithiasis. No suspicious solid mass lesions . 9 mm left renal cortical cyst. Bladder: Francisco catheter present. Miscellaneous: No free pelvic fluid. IMPRESSION: Renal cortical thinning and 9 mm left renal cortical cyst. Dictated by: Simón Hernandez [facility] Interpreted: Janice Mackey MD on 12/03/2016 at 16:59 Transcribed by: ALINA on 12/03/2016 at 17:00 Approved by: Janice Mackey MD, PhD on 12/03/2016 at 20:31
--- NOTE | 2016-12-03 18:10 | NUR ---
SVT Patient had a 9 second run of SVT, rate 150s this evening at 1739. Rhythm spontaneously went back to ST, low 100s. No change in BP. Hospitalist made aware. No new orders.
[2016-12-03 18:20] LABS: APPEARANCE,URINE HAZY (CLEAR,HAZY); COLOR,URINE YELLOW (YELLOW); OCCULT BLOOD,URINE MODERATE (NEGATIVE); UROBILINOGEN,URINE NORMAL (NORMAL)
[2016-12-03] MEDS: Norepineph 8,000 mCg/250 mL NS 8,000 MCG in IV Premix 1 EACH IV SCH (20:22)
[2016-12-03] MEDS: Senna Leaf Extract 528 mg/15 mL Syrup PO SCH (20:54)
[2016-12-04] VITALS (16 sets, daily range): BP systolic 116–160; BP diastolic 44–60; PULSE 92–102; RESP 6–14; O2SAT 95–99
[2016-12-04] MEDS: Albuterol-Ipratropium 3 mL Inhalation Solution NEB SCH ×9 (00:02→20:37)
[2016-12-04] MEDS: Heparin 5,000 Unit/mL Inj SUBQ SCH ×3 (00:59→16:00)
[2016-12-04] MEDS: Chlorhexidine 0.12% 15 mL Oral Solution MT SCH ×6 (00:59→19:56)
[2016-12-04] MEDS: Propofol Inj 1,000,000 MCG in IV Premix 1 EACH IV SCH ×3 (01:50→18:27)
[2016-12-04] MEDS: 0.9% Sodium Chloride 1,000 ML IV SCH ×3 (01:51→13:44)
[2016-12-04] MEDS: Insulin Human REGular 300 Unit/3 mL Inj SUBQ SCH ×4 (02:30→21:20)
[2016-12-04 04:18] LABS: BASOPHILS % (AUTO) 0 % (0-3); EOSINOPHILS % (AUTO) 0 % (0-5); MONOCYTES % (AUTO) 5.6 % (4-12); Mean Corpuscular Hemoglobin 29.9 pg (27.0-35.0); Mean Corpuscular Volume 96.6 fL (81-100); NEUTROPHILS % (AUTO) 91.4 % (40-74); Platelet Count 68 bil/L (150-400)
--- NOTE | 2016-12-04 05:43 | NUR ---
P: Nods yes to generalize discomfort I: reposition, increase propofol drip, fentanyl drip E: Venilated. Light sedation. Fentanyl drip at 75mcg. Propofol drip increase from 10mcg to 25mcg and along w/ repositioning pt later denying discomfort. Sats in the high 90% on 45% fio2. Denies abdominal discomfort. Tolerating TFs. Tele SR/ST, PACs. BP stable. UOP approx 30ml+/hr, jose. No stool.
[2016-12-04] MEDS ORDERED: Furosemide 10 mg/mL 4 mL Inj IVPUSH ONE (07:50)
[2016-12-04] MEDS: fentaNYL 2,500 mCg/250 mL 2,500 MCG in IV Premix 1 EACH IV PRN (07:56)
--- NOTE | 2016-12-04 09:15 | PROG NOTE ---
[address] [address] PROGRESS NOTE PATIENT: MICHAEL UNDERWOOD : 1940 MR#: [id number] ADMIT: 11/28/2016 JOB ID: [id number] DATE: 12/04/2016 INFECTIOUS DISEASE FOLLOW UP NOTE: REASON FOR FOLLOWUP: Parainfluenza virus type 4, pulmonary infection in a patient with severe COPD. INTERVAL HISTORY: Overnight the patient has been relatively stable. Yesterday, he had a one hour pressure support trial and did fairly well and there are plans to do more of the same today in hopes of progressing towards extubation. The patient is still intubated and sedated but he does rouse when his name is called or he is touched. He is able to shake his head yes and no. Currently, he denies fevers or chills. Denies air hunger. Denies pain and has no abdominal pain. Beyond that, there are no abdominal complaints. Beyond that, I cannot obtain any more history from this intubated and somewhat sedated gentleman. This case was discussed at the bedside with the ICU nurse as well as the team. He is off vasopressors and he is stable on reasonable ventilator settings at 45% FiO2 and 7 of PEEP at this point. PHYSICAL EXAMINATION: Reveals an afebrile gentleman. He has been afebrile now for 2-1/2 full days. Temperature is currently 36.6, pulse 92, respiratory rate is ventilator dependent though he does the ventilator as well. Blood pressure 136/47 without vasopressor agents. He is saturating 99% on these settings. Eyes without conjunctivitis or scleral icterus. Oral endotracheal tube, orogastric tube in good position. He also has a PICC line in the right upper extremity which looks good and a Francisco catheter. Lungs with some decreased breath sounds diffusely as before but very little in the way of focal rales or rhonchi are heard. Cardiac tones are regular. Somewhat tachycardic with an occasional ectopic beat and looking up at the monitor it looks like he is in sinus with some PACs thrown in which is what he sounds like. His abdomen is soft and without focal mass or tenderness. His penis and scrotum appear normal. Francisco in good position without inflammation around the meatus. Extremities without evidence of cellulitis or significant edema. LABORATORIES: Include white count 6300, platelet count 68,000 which is dropping a bit. 91% polys. Creatinine is 1.54, which is actually coming down from 1.90 yesterday. Albumin is 3. A recent urinalysis has no white cells. Urine Legionella and pneumococcal antigens are negative. Nasal PCR for MRSA negative. Respiratory viral PCR positive for parainfluenza virus 4. Blood cultures are negative. Yesterday's chest x-ray showed a stable chest with some bilateral what appears to be pulmonary edema. Today's chest x-ray is just being done while I examined the patient and I will be looking at that film later. IMPRESSION: A decompensated chronic obstructive pulmonary disease triggered by parainfluenza virus 4 infection. There is no evidence for bacterial superinfection and yesterday we went ahead and stopped all of his empiric antibiotics. He seems to be quite stable, and in fact, may be even improving off antibiotics and there is really no concern at this point for bacterial infection. RECOMMENDATIONS: 1. Will continue to watch the patient off all his antibiotics. 2. Additional efforts towards weaning will be continuing today.
[2016-12-04] MEDS: MethylprednisoLONE Sodium Succinate 40 mg/mL Inj IVPUSH SCH (09:54)
[2016-12-04] MEDS: Famotidine Inj 20 MG in IV Premix 1 EACH IV SCH ×2 (09:55→19:56)
[2016-12-04] MEDS: Senna Leaf Extract 528 mg/15 mL Syrup PO SCH ×2 (09:55→21:06)
[2016-12-04] MEDS: Tiotropium 18mcg/Cap 5 Capsule Inhaler Kit INHALATION SCH (09:55)
[2016-12-04] MEDS: Polyethylene Glycol (PEG) 17 Gm Powder PO SCH ×2 (09:55→21:06)
--- NOTE | 2016-12-04 09:59 | DRSVH ---
PROCEDURE: X-RAY CHEST ONE VIEW, PORTABLE ([id number]) INDICATIONS: iNTUBATED TECHNIQUE: One view of the chest was acquired. COMPARISON: [facility], CR, XR CHEST 1VW (PORTABLE), 12/03/2016, 5:27. FINDINGS: Surgical changes and devices: Sternal wire, ETT, NG and right PICC are unchanged. Lungs and pleura: There is blunting of the costophrenic angles bilaterally. There are hazy opacitie s in the bases. Mediastinum: Mediastinal contours appear normal. Heart size is normal. Bones and chest wall: No suspicious bony lesions. Overlying soft tissues appear unremarkable. IMPRESSION: Mild bibasilar hazy opacities and effusions, with the former representing fluid and/or d evelopment of underlying air space disease such as pneumonia/atelectasis. Dictated by: Sera Silva M.D. on 12/04/2016 at 8:51 Approved by: Sera Silva M.D. on 12/04/2016 at 8:57
--- NOTE | 2016-12-04 10:17 | ABG ---
DateTimeAnalyzed 10:14:00 -_ pH ____7.424 - 7.350 7.450 pCO2 ___56.4__ -mmHg 35.0 45.0 pO2 117 -mmHg 69.0 116 HCO3- ___36.2__ -mmol/L 22.0 26.0 ABE ___10.4__ -mmol/L -2.0 2.0 tHb ___11.1__ -g/dL O2Hb ___96.8__ -% COHb ____0.9__ -% MetHb ____0.9__ -% sO2 ___98.6__ -% 25.0 FIO2 ___45.0__ -% PRVC 450 - PEEP ____5.0__ -cmH2O Set_RR ___13.0__ -b/min Vt __501.0__ -L Drawn By GJ - Date/Time Notified____ 10:17:00 -_ Spontaneous_RR ___13.0__ -b/min Oxygen Device 1 VENTILATOR - Notified By GJ - Notified Whom ___Dr. Amador [place] -___ Age 69 -years B 759 -mmHg tO2 ___15.4__ -Vol% Bert test N/A -
--- NOTE | 2016-12-04 11:07 | NUR ---
Palliative Care Palliative Care received verbal order from Dr Selby 12/04/16 to assist with goals of care. Patient is 76 year old man with hx of COPD. He was admitted 11/28/16 with respiratory failure and intubated. Patient lives home alone. Jody Sheth (daughter) [phone] Sidra Yanet Chojasmin (daughter) [phone] Palliative Care to follow. Aliya Loza
--- NOTE | 2016-12-04 12:10 | PCM.PNMED ---
Subjective Date of Service Dec 04, 2016 Subjective The patient is currently intubated and does not to questions asked. Exam Vital Signs Vital Sign - Last Date Time Temp Pulse Resp B/P Pulse Ox O2 Delivery O2 Flow Rate FiO2 12/04/16 10:00 6 12/04/16 08:00 100 12/04/16 08:00 Ventilator 12/04/16 08:00 36.9 118/44 98 45 12/03/16 04:30 3.00 Intake and Output 12/03/16 12/03/16 12/04/16 Cumulative From/Thru 14:59 22:59 06:59 11/28/16 13:58 - 12/04/16 06:04 Intake Total 1286 ml 1956 ml 8985 ml Output Total 750 ml 650 ml 6775 ml Balance 536 ml 1306 ml 2210 ml Intake Oral 1747 ml IV Total 1080 ml 1433 ml 6253 ml Tube Feeding 146 ml 343 ml 615 ml Tube Irrigant 60 ml 180 ml 370 ml Output Urine Total 750 ml 650 ml 6325 ml Gastric Drainage Total 450 ml # Voids 3 # Bowel Movements 0 2 Exam Constitutional: Elderly man who is currently intubated Head: Normocephalic atraumatic Chest reveals some scattered rhonchi Cor: Regular rate and rhythm S1-S2 Abdomen: Soft, nontender bowel sounds present Extremities, trace bilateral pedal edema noted Lab and Diagnostics Result Diagram: 12/04/16 1033 12/04/16 0520 X-Rays, CTs and MRIs Accessory reviewed and show pulmonary edema. Lead EKG show normal sinus rhythm Additional Diagnostics MICHAEL UNDERWOOD 1940 Male DateTimeAnalyzed 04:33:00 -_ pH ____7.439 - 7.350 7.450 pCO2 ___57.5__ -mmHg 35.0 45.0 pO2 ___86.6__ -mmHg 69.0 116 HCO3- ___38.3__ -mmol/L 22.0 26.0 ABE ___12.4__ -mmol/L -2.0 2.0 tHb ___10.8__ -g/dL O2Hb ___95.7__ -% COHb ____0.8__ -% MetHb ____1.1__ -% sO2 ___97.6__ -% 25.0 FIO2 ___45.0__ -% PRVC 450 - PEEP ____5.0__ -cmH2O Set_RR ___13.0__ -b/min Vt __501.0__ -L Drawn By RB - Date/Time Notified____ 04:37:00 -_ Spontaneous_RR ___13.0__ -b/min Oxygen Device 1 VENTILATOR - Notified By RB - Notified Whom DANIEL K, RN - Age 69 -years B 749 -mmHg tO2 ___14.6__ -Vol% Bert test _Positive - Assessment & Plan 1. Acute on chronic respiratory failure with hypoxia and hypercarbia, POA. This appears to represent acute heart failure. His echo indicates probable diastolic dysfunction. However does have COPD with [id number] history of smoking. Patient is positive for parainfluenza on respiratory PCR. The patient was intubated yesterday for progressive respiratory failure with hypercarbia. His PCO2 had gone from 8200 in spite of being on BiPAP. Long discussion with the family indicated that they did want intubation and full level of care. He was intubated had transient hypotension after which was corrected with fluids. The patient had a parainfluenza PCR which was positive. He was started on empiric antibiotics. Today he is clinically relatively stable and still requiring pressors. He was started on empiric antibiotics yet his blood cultures and sputum cultures at this point are negative. After discussion with infectious disease today they recommend descending IV meropenem and see no need for IV antibiotics. Consider spontaneous breathing trial today. 2. Parainfluenza URI/pneumonia. POA. Symptomatic treatment the patient is being covered with meropenem for possible secondary bacterial pneumonia with cultures pending. DC IV meropenem today as noted above. No evidence clinically of pneumonia. 2. Possible Acute on chronic diastolic heart failure. POA. The thought initially was that he was having a component of diastolic heart failure. This is less clear. Certainly he cannot be diuresed at this point as he has become more ill and requiring pressors. Currently off pressors but actually seems to be volume depleted today. 3. COPD exacerbation,POA. We will continue to use IV steroids and bronchodilators. Check 4 times a day blood sugars and place on subcutaneous regular insulin protocol 4. Essential hypertension, uncontrolled. POA. The patient will have these medications held. 5. Hyperkalemia. POA. Resolved, follow with daily labs.. 6. Chronic respiratory failure on home oxygen, POA 7. History of coronary artery disease status post CABG, POA 8. Hypercholesterolemia, POA 9. BPH, POA 10. Acute kidney failure, not present on admission Suspect is due from volume depletion and will initiate IV normal saline at 100 mils per hour and monitor Check UA Check renal ultrasound. VTE Prophylaxis: Sub-Q Heparin (Unfractionated) VTE Mechanical Devices: Intermittant Pneumatic CD Resuscitation Status: CPR: Attempt Resuscitation Roxie Selby MD Dec 04, 2016 12:10
--- NOTE | 2016-12-04 12:36 | PROG NOTE ---
[address] [address] PROGRESS NOTE PATIENT: MICHAEL UNDERWOOD : 1940 MR#: [id number] ADMIT: 11/28/2016 JOB ID: [id number] DATE: 12/04/2016 PULMONARY CRITICAL CARE FOLLOWUP NOTE: PROBLEM: 1. Acute on chronic hypoxemic hypercarbic respiratory failure. 2. Chronic obstructive pulmonary disease, severe. 3. Paroxysmal atrial fibrillation. 4. Coronary artery disease by history. SUBJECTIVE: The patient arouses for brief periods of time. Seems to indicate he has some shortness of breath. No pain from the endotracheal tube. No chest or abdominal pain. However, unless continuously stimulated, nods off easily. OBJECTIVE: Temperature 36.9, pulse 90-100, respiratory rate 14 with ventilator set at 14, blood pressure 118/44, O2 sat on FiO2 of 45% and PEEP of 5 is 98%. I and O shows 2.6 liters in, 1.2 liters out. General appearance: Lethargic, sedated. Arouses to somewhat loud, irritative verbal stimuli. Opens his eyes. Nods in response to questions for a brief period of time and then nods back off again. Chest shows markedly distant breath sounds. Lung dinh are clear in the mid and upper lung dinh. Heart: Heart tones normal. Abdomen is soft. A few bowel tones. Extremities: Trace to 1+ pretibial edema. Laboratory data shows a hemoglobin 11.5. This was a repeat of a significantly abnormal CBC. Therefore, the rest of the values including white count and platelets will be ignored. Sodium 135, potassium 3.8, chloride 91, CO2 is 34, BUN 60 and slowly decreasing. Creatinine 1.54 and slowly decreasing. Calcium 7.4 with albumin of 3. Total bilirubin normal at 0.9. Transaminases normal, as is alkaline phosphatase. Chest x-rays shows some blunting of the costophrenic angles bilaterally. Some slight hazy, increased opacity at both bases. Otherwise normal. Arterial blood gases on tidal volume of 450, rate of 13, PEEP of 5, FiO2 of 0.45 shows a pO2 of 117, a pCO2 of 56, pH 7.42. ASSESSMENT: 1. Acute on chronic hypoxemic hypercarbic respiratory failure. The patient has underlying severe emphysema. A pressure support trial was attempted this morning. However, the patient was extremely hypopneic with respiratory rate of only 6. Will need to hold all sedation and repeat the pressure support trial. In the meantime, will back off some of the vent settings, as he probably can tolerate a slightly lower pO2, as well as a slightly higher pCO2, to bring him back towards his normal baseline before starting the pressure support trial. 2. Emphysema. Patient receiving q.2 h. nebulizers. Do not think he needs it quite that often now. In addition, we can back off a little bit on the steroids, which may be causing a bit of muscle weakness. 3. Prerenal acute kidney injury. The patient receiving IV fluids. Will continue same. Currently receiving normal saline at 100 mL an hour. I think we can continue the same dosage. Would continue to avoid diuretics to replete his volume deficit. Albumin is reasonable. I think crystalloid would be adequate. PLAN: 1. Complete sedation vacation this afternoon, followed by a spontaneous breathing trial. 2. Continue IV normal saline. 3. Decrease Solu-Medrol to 60 mg daily. 4. Decrease DuoNeb to q.4 h.
--- NOTE | 2016-12-04 13:37 | NUR ---
NUTRITION FOLLOW-UP: Assess: 76 YO M admitted to CCU with acute on chronic hypoxemic hypocarbic respiratory failure related to severe COPD. Pt required mechanical ventilation after failing BiPAP on 12/01. He failed his SBT today. Enteral feeding rate currently 40 ml/hr, with goal rate 60 ml/hr. Liquid protein added today to better meet needs. Family meeting scheduled today to determine POC once the patient is extubated. PMHX: HTN, A-fib, chronic respiratory failure, COPD/emphysema, CVA, HLD, carotid artery disease. DIET: NPO. ENTERAL FEEDING: Pulmocare rate currently 40 ml/hr. Goal rate 60 ml/hr, which will provide 1980 kcal, (TF + Propofol = 2125 kcal/day), 83 g protein; meeting 100% calorie, 86% protein needs. LABS:Chloride 91, CO2 34, BUN 60, Cr 1.54, glu 182, A1c 5.3, Ca 7.4, Alb 3.0, Triglycerides 162. MEDICATIONS: Insulin, solu-medrol, fentanyl. Propofol rate currently 5.5 ml/hr, providing 145 lipid kcal. GI: 1 BM 12/02. SKIN: No issues noted. ANTHROPOMETRICS: Wt: 92.3 kg, BMI 32.0 kg/m2, Admit wt: 93.0 kg, IBW: 64.5 kg. ESTIMATED NEEDS: VENT/BMI Calories: 1937-8508 kcal/day (20-22 kcal/kg BW) Protein: 97-116 g/day (1.5-1.8 g/kg IBW) Fluids: 2567-6721 mL/day (1 mL/kcal) NUTRITION DIAGNOSIS: 1) Inadequate oral intake related to decreased ability to consume sufficient energy as evidenced by NPO/Vent status - IMPROVED WITH ENTERAL FEEDING 66% GOAL RATE. INTERVENTION: 1) Added 1 packet [employer] liquid protein BID to provide a total of 105 g protein; meeting 100% of protein requirements. 2) Adjust enteral feeding goal based on daily Propofol rate. MONITOR/EVALUATE: NPO/Vent status, labs, enteral feeding tolerance/advance, labs, POC, nutrition status. Follow per high nutrition risk guidelines.
--- NOTE | 2016-12-04 15:12 | NUR ---
Sedation/PST This morning Propofol was turned down from 20mcgs to 10 mcgs in anticipation of PST. Patient failed PST. Attempted again at 1300 after coordinating with RT. Turned Sedation completely off per MD instruction. RT planned to do PST at 1400. BY 1330, patient was tremulous in bed, HR was up to the 140s and BP was 198/73. MD was notified and patient was placed back on Propofol at 10 mcgs and Fentanyl at 25 mcgs. PST not done. Currently, Fentanyl is at 50 mcgs. Patient is more restful-- HR 103 and bp 137/55.
--- NOTE | 2016-12-04 15:27 | PCM.CONPAL ---
Date of Service Dec 04, 2016 Date of Hospital Admission: Nov 28, 2016 at 16:28 Date of Palliative Consult: Dec 04, 2016 Requesting Provider: Bert De La Cruz MD Comment: pt unable to rate or decribe pain Reason Palliative Care Consult: Goals of Care Discussion, w/d Life Prolonging Interventions Reason for Consultation Palliative Care received verbal order from Dr Selby 12/04/16 to assist with goals of care. Patient is 76 year old man with hx of COPD. He was admitted with respiratory failure and intubated. Patient lives home alone. Jody Sheth (daughter) [phone] (daughter) [phone] Hospital Unit @time of consult: Critical Care (Room 2016) Palliative Care Recommendation Summary of palliative recommendations: -Symptom management (Pain/other): per Yellow Team Hospitalist Dr. Lerma and Dr. Joiner for ventilator management -DPOA/Advanced Directives/POLST: 1. Code was FULL. Changed 12/04 to DNR/DNI (once extubated, will NOT reintubate). 2. No known prior DPOA paperwork. Has 5 adult children to make decisions for him by substituted judgement per [place] statutes 12/04: Family Conference held today with Dr. Selby and Dr. Lara. Present were one daughter and one DIL. Rest of family members working. Dr. Selby gave medical update on patient's condition which is poor. His lungs aren't able to support him. He needs maximum support from ventilator. He has failed 3 breathing trials. Prognosis is poor. Family here today feel that patient would not want this to continue. Plan: 1. Change code now to DNR/DNI 2. Do not escalate care if pt deteriorates overnight, but call family JUAN PABLO so they can come in and be with him. 3. AT 1030a.m. 12/05, family meeting of all children in CCU with medical team with plan for compassionate extubation around 11a.m. -Family/emotional support: Jody Sheth (daughter) [phone] (daughter) [phone] -Spiritual support Patient Goals: 1. Pt only willing to have short term intubation/ventilation per family statements. Additional Medical Diagnoses with primary management by Hospitalist team include : Problems: Resuscitation Status Resuscitation Status: DNR/DNI:Do Not Resuscitate/Intubate POLST Updates/Changes Previous POLST?: No . Advanced Care Planning Address: Code status change Symptom management: Dyspnea Pt History History of Present Illness 76 male WWM with PMH CABG sp stent placement 3 years ago, COPD 2/2 tobacco abuse (x 40 years, quit 5 yrs), on home O2, HTN, HLD admitted to hospital for SOB on 11/28. Acute on chronic hypoxic hypercapneic respiratory failure unfortunately continued to worsen despite BiPAP. Pt was intubated for hypercapnic respiratory failure, refractory to BiPAP at 1615H 12/01 and pulmonology consulted to assist in ventilator management. Hospital Course: Pt subsequently diagnosed with a viral infection and empiric antibiotics discontinued. On Hospital Day 7, Vent Day 3 (12/04) Palliative Care was asked to help assess family preferences in care as pt had previously stated he would want only a short trial of intubation/ventilation. He failed 3 SBTs today. Part of family gathered today for a family conference with Dr. Selby and Dr. Lara. Past Medical History Significant PMH Noted: Hypertension, paroxysmal atrial fibrillation, chronic respiratory failure, COPD/ emphysema, CVA, hyperlipidemia, obstructive uropathy, carotid artery disease with 50% to 79% narrowing on the left internal carotid. Surgical History CABG Family History Family history reviewed and is noncontributory to the present illness Social History Hx Alcohol Use: No (stopped in 1979) Hx Substance Use: No Hx Tobacco Use: Yes (still smokes 5 cig day) Living Arrangement: 3 years ago, patient lives alone in first floor apt with supervision of his daughter, at baseline walks independently, but quit driving a few years ago Medications Current Medications: Current Medications Methylprednisolone Sodium Succinate 90 mg DAILY IVPUSH Last administered on 12/04 09:54; Admin Dose 90 MG; Start 12/03/16 at 08:30; Stop 12/04/16 at 14:25; Status DC Polyethylene Glycol 17 gm BID PO Last administered on 12/04/16 09:55; Admin Dose 17 GM; Start 12/03/16 at 08:30 Sennosides 528 mg BID PO Last administered on 12/04/16 09:55; Admin Dose 528 MG ; Start 12/03/16 at 20:30 Insulin Human Regular * Low Dose Insulin Algori... Q6 SUBQ Last administered on 12/04/16 09:57; Admin Dose 1 UNIT; Start 12/03/16 at 08:30 Sodium Chloride 1,000 ml @ 100 mls/hr Q10H IV Last administered on 12/04/16 13 :44; Admin Dose 100 MLS/HR; Start 12/03/16 at 08:20 Sodium Chloride 1,000 ml @ 200 mls/hr Q5H IV; Start 12/03/16 at 08:10; Stop at 13:10; Status DC Sodium Chloride 1,000 ml @ 125 mls/hr Q8H IV Last administered on 12/04/16 06: 16; Admin Dose 125 MLS/HR; Start 12/03/16 at 13:10; Stop 12/04/16 at 08:17; Status DC Famotidine/Sodium Chloride/Premix 50 ml @ 50 mls/hr Q12 IV Last administered on 12/04/16 09:55; Admin Dose 50 MLS/HR; Start 12/03/16 at 09:15 Albuterol/ Ipratropium 3 ml Q4 NEB Last administered on 12/04/16 14:57; Admin Dose 3 ML; Start 12/04/16 at 16:30 Methylprednisolone Sodium Succinate 60 mg DAILY IVPUSH; Start 12/05/16 at 08:30 Scheduled Aspirin (Aspirin) 81 Mg Tablet 81 MG PO QAM Atorvastatin (Lipitor) 40 Mg Tablet 40 MG PO HS Clopidogrel (Clopidogrel) 75 Mg Tablet 75 MG PO QAM Docosahexanoic Acid/Epa (Fish Oil Concentrate Softgel) 1 Each Capsule 1 EACH PO QAM Doxazosin Mesylate (Doxazosin Mesylate) 2 Mg Tablet 2 MG PO HS Isosorbide MN ER (Isosorbide MN ER) 60 Mg Tab.er.24h 60 MG PO QAM Metoprolol Tartrate (Metoprolol Tartrate) 100 Mg Tablet 100 MG PO BID Mirtazapine (Mirtazapine) 15 Mg Tablet 45 MG PO HS Scheduled PRN Albuterol Neb Soln (Albuterol Neb Soln) 0.63 Mg/3 Ml Vial.neb 0.63 MG INHALATION QID PRN PRN For Shortness of Breath Ipratropium/Albuterol Sulfate (Iprat-Albut 0.5-3(2.5) mg/3 mL Inhalant Soln) 3 Ml Ampul.neb 3 ML IH QID PRN PRN For Shortness of Breath Objective Findings Exam Vital Sign - Last Date Time Temp Pulse Resp B/P Pulse Ox O2 Delivery O2 Flow Rate FiO2 12/04/16 12:30 95 149/60 97 35 12/04/16 12:00 Ventilator 12/04/16 12:00 36.5 13 12/03/16 04:30 3.00 Intake and Output 12/03/16 12/03/16 12/04/16 Cumulative From/Thru 15:00 23:00 07:00 11/28/16 13:58 - 12/04/16 06:04 Intake Total 1286 ml 1956 ml 8985 ml Output Total 750 ml 650 ml 6775 ml Balance 536 ml 1306 ml 2210 ml Intake Oral 1747 ml IV Total 1080 ml 1433 ml 6253 ml Tube Feeding 146 ml 343 ml 615 ml Tube Irrigant 60 ml 180 ml 370 ml Output Urine Total 750 ml 650 ml 6325 ml Gastric Drainage Total 450 ml # Voids 3 # Bowel Movements 0 2 Objective General: sedated HEENT: NC/AT, sclera clear, mmm, intubated Lungs: clear Heart: S1,S2, tachycardic, some skipped beats, no murmur Abdomen: soft, no masses G/U: luong in place Extremities: trace edema Skin: no rashes Lab/Diagnostics Lab and Imaging results reviewed in detail in EMR. Time spent Total time 70 minutes; >50% face to face with patient and/or family, providing counselling regarding plans and recommendations, and in care coordination with his/her medical teams. I also spent an additional 65 minutes counseling for advanced care planning with the patient/the patients family/the surrogate decision maker. Adina Lara MD Dec 04, 2016 15:27
--- NOTE | 2016-12-04 16:52 | NUR ---
[facility] Signed
--- NOTE | 2016-12-04 18:54 | PCM.ADCARE ---
Advance Care Planning Note Purpose of Encounter: To evaluate further interventions with regards to CODE STATUS currently Parties in Attendance: Dr. Adina Castro, Dr. Selby, and patient's 2 daughters Decisional Capacity: Patient is not able to make decisions but 2 daughters are currently present Subjective: Patient is currently intubated for treatment of COPD exacerbation and had previously stated that he wished not to be on a ventilator. This patient was intubated with follow-up at if patient does not improve after several days we will need to further address. Objective: Current Medications Methylprednisolone Sodium Succinate 90 mg DAILY IVPUSH Last administered on 12/04 09:54; Admin Dose 90 MG; Start 12/03/16 at 08:30; Stop 12/04/16 at 14:25; Status DC Polyethylene Glycol 17 gm BID PO Last administered on 12/04/16 09:55; Admin Dose 17 GM; Start 12/03/16 at 08:30 Sennosides 528 mg BID PO Last administered on 12/04/16 09:55; Admin Dose 528 MG ; Start 12/03/16 at 20:30 Insulin Human Regular * Low Dose Insulin Algori... Q6 SUBQ Last administered on 12/04/16 09:57; Admin Dose 1 UNIT; Start 12/03/16 at 08:30 Sodium Chloride 1,000 ml @ 100 mls/hr Q10H IV Last administered on 12/04/16 13 :44; Admin Dose 100 MLS/HR; Start 12/03/16 at 08:20 Sodium Chloride 1,000 ml @ 200 mls/hr Q5H IV; Start 12/03/16 at 08:10; Stop at 13:10; Status DC Sodium Chloride 1,000 ml @ 125 mls/hr Q8H IV Last administered on 12/04/16 06: 16; Admin Dose 125 MLS/HR; Start 12/03/16 at 13:10; Stop 12/04/16 at 08:17; Status DC Famotidine/Sodium Chloride/Premix 50 ml @ 50 mls/hr Q12 IV Last administered on 12/04/16 09:55; Admin Dose 50 MLS/HR; Start 12/03/16 at 09:15 Albuterol/ Ipratropium 3 ml Q4 NEB Last administered on 3/23/17at 14:57; Admin Dose 3 ML; Start 12/04/16 at 16:30 Methylprednisolone Sodium Succinate 60 mg DAILY IVPUSH; Start 12/05/16 at 08:30 Goals of Care Determinations: Comfort and to follow patient's previous and current wishes Plan: We will meet again tomorrow with rest of patient's siblings to further address. CODE STATUS: Currently patient is no CPR and will further address extubation per patient's wishes in the past tomorrow with rest of sons and daughters. Time Spent Adv.Care Plannin minutes Adv. Care Plan Documenation: Plan will be to meet again tomorrow to discuss with other siblings but the 2 daughters at this time feel that it would be most appropriate and dad's wishes to extubate tomorrow with medication administration as needed for comfort. Roxie Selby MD Dec 04, 2016 18:54
[2016-12-05] VITALS (16 sets, daily range): BP systolic 104–173; BP diastolic 45–78; PULSE 82–110; RESP 13–20; O2SAT 90–99
[2016-12-05] MEDS: Albuterol-Ipratropium 3 mL Inhalation Solution NEB SCH ×6 (00:14→20:43)
[2016-12-05] MEDS: Chlorhexidine 0.12% 15 mL Oral Solution MT SCH ×6 (00:43→20:04)
[2016-12-05] MEDS: 0.9% Sodium Chloride 1,000 ML IV SCH (00:43)
[2016-12-05] MEDS: Heparin 5,000 Unit/mL Inj SUBQ SCH ×3 (00:43→16:21)
[2016-12-05] MEDS: Propofol Inj 1,000,000 MCG in IV Premix 1 EACH IV SCH ×3 (04:00→22:26)
[2016-12-05] MEDS: Insulin Human REGular 300 Unit/3 mL Inj SUBQ SCH ×4 (04:03→20:12)
[2016-12-05 04:34] LABS: BASOPHILS % (AUTO) 0.1 % (0-3); EOSINOPHILS % (AUTO) 0 % (0-5); MONOCYTES % (AUTO) 7.2 % (4-12); Mean Corpuscular Hemoglobin 29.5 pg (27.0-35.0); Mean Corpuscular Volume 97.3 fL (81-100); NEUTROPHILS % (AUTO) 89.9 % (40-74); Platelet Count 108 bil/L (150-400)
[2016-12-05 05:00] LABS: Magnesium 2.4 mg/dL (1.6-2.6); Phosphorus 2.2 mg/dL (2.5-4.9)
[2016-12-05] MEDS: Tiotropium 18mcg/Cap 5 Capsule Inhaler Kit INHALATION SCH (07:28)
--- NOTE | 2016-12-05 07:30 | NUR ---
Sedation Pt awake, eyes open spontaneously and nods to answer questions at times. Turn q2h. Noted some tremors when pt being turned. Telemetry SR-ST 80s to up to 120s-130s (non-sustained). Increased Propofol to 15 mcg and Fentanyl at 75 mcg with effectiveness noted. 02sat in mid 90s on Vent at 35%/5/450/13.
[2016-12-05] MEDS: Polyethylene Glycol (PEG) 17 Gm Powder PO SCH ×2 (08:30→20:04)
[2016-12-05] MEDS: Senna Leaf Extract 528 mg/15 mL Syrup PO SCH ×2 (08:30→20:04)
[2016-12-05] MEDS: MethylprednisoLONE Sodium Succinate 40 mg/mL Inj IVPUSH SCH (08:56)
[2016-12-05] MEDS: Famotidine Inj 20 MG in IV Premix 1 EACH IV SCH ×2 (08:56→20:04)
--- NOTE | 2016-12-05 09:40 | DRSVH ---
PROCEDURE: X-RAY CHEST ONE VIEW, PORTABLE ([id number]) INDICATIONS: intubated on ventilator TECHNIQUE: One view of the chest was acquired. COMPARISON: [facility], CR, XR CHEST 1VW (PORTABLE), 12/04/2016, 7:56. FINDINGS: Surgical changes and devices: Sternal wire, ETT, NG and right PICC are unchanged. Lungs and pleura: There is blunting of the costophrenic angles bilaterally. There are hazy opacitie s in the bases unchanged. Mediastinum: Mediastinal contours appear normal. Heart size is normal. Bones and chest wall: No suspicious bony lesions. Overlying soft tissues appear unremarkable. IMPRESSION: Bibasilar atelectasis versus aspiration or pneumonia. Correlate clinically. Dictated by: Simnó Hernandez [facility] Interpreted: Janice Mackey MD on 12/05/2016 at 9:39 Transcribed by: ALINA on 12/05/2016 at 9:40 Approved by: Janice Mackey MD, PhD on 12/05/2016 at 17:05
[2016-12-05] MEDS ORDERED: Furosemide 10 mg/mL 4 mL Inj IVPUSH ONE (11:10)
--- NOTE | 2016-12-05 11:54 | ABG ---
DateTimeAnalyzed 11:48:00 -_ pH ____7.333 - 7.350 7.450 pCO2 ___68.6__ -mmHg 35.0 45.0 pO2 ___68.5__ -mmHg 69.0 116 HCO3- ___35.4__ -mmol/L 22.0 26.0 ABE ____7.7__ -mmol/L -2.0 2.0 tHb ___12.3__ -g/dL O2Hb ___91.0__ -% COHb ____0.9__ -% MetHb ____1.0__ -% sO2 ___92.8__ -% 25.0 FIO2 ___35.0__ -% Pressure_Support ____8.0__ -cmH2O PEEP ____5.0__ -cmH2O Vt __364.0__ -L Drawn By BTL - Date/Time Notified____ 11:53:00 -_ Spontaneous_RR ___20.0__ -b/min Oxygen Device 1 VENTILATOR - Notified By btl - Notified Whom ___DR. Parimi - Age 69 -years B 752 -mmHg tO2 ___15.7__ -Vol% Bert test N/A -
--- NOTE | 2016-12-05 12:29 | PROG NOTE ---
[address] [address] PROGRESS NOTE PATIENT: MICHAEL UNDERWOOD : 1940 MR#: [id number] ADMIT: 11/28/2016 JOB ID: [id number] DATE: 12/05/2016 REASON FOR FOLLOWUP: COPD with ventilatory dependent respiratory failure precipitated by parainfluenza type 4 infection. INTERVAL HISTORY: Overnight, the patient has been quite stable. He remains awake and alert on the ventilator. So far, efforts to wean and extubate the patient have been unsuccessful, but another attempt is planned for today. The patient for his part denies fevers or chills. He denies air hunger and reports no new abdominal or other complaint. PHYSICAL EXAMINATION: Reveals an afebrile gentleman lying supine in the ICU. He has been afebrile now for three and half days. Temperature now 37.1, pulse 108, respiratory rate 13, blood pressure 163/78, saturating 99% on 35%. Examination of the mental status reveals that he can follow commands and seems to follow the conversation. He nods appropriately. Oral endotracheal tube and orogastric tube in good position. Lungs with transmitted upper airway sounds primarily. In the lower lung dinh, I do not hear a lot of air moving, but I also do not hear any rales or rhonchi. Cardiac tones without new murmur. Abdomen benign. No skin rash. LABORATORIES: Include white count 11,600, 90% segs, otherwise normal. Creatinine 1.15, much improved. LFTs normal. Albumin 2.4. Urine Legionella and pneumococcal antigens are negative. Blood cultures are negative, and PCR of course was positive for parainfluenza virus 4. Today's chest x-ray shows bibasilar infiltrates consistent with atelectasis or pneumonia. IMPRESSION: See no evidence for bacterial pneumonia in this gentleman with decompensated chronic obstructive pulmonary disease and proven parainfluenza virus type 4 infection. RECOMMENDATIONS: 1. No need for antibiotics or antifungal drugs. 2. ID will go ahead and sign off today.
--- NOTE | 2016-12-05 12:44 | PCM.PALLBR ---
Palliative Care Recommendation Summary of palliative recommendations: -Symptom management (Pain/other): per Yellow Team Hospitalist Dr. Lerma and Dr. Joiner for ventilator management -DPOA/Advanced Directives/POLST: 1. Code remains: DNR/DNI confirmed with the entire family that once he is extubated, he will NOT be reintubated, if his clinical condition deteriorates. 2. No prior DPOA paperwork. Has 5 adult children to make decisions for him by substituted judgement per [place] statutes 12/05: Large family available today (about 20 people) who met with Sola Paz and Jane. Goals: 1. Pulmonary and Internal Medicine Teams will work hard to get him ready for extubation tomorrow, Sat 12/06. 2. He will be converted to a biPAP mask, and use this as much as he can tolerate it to support his breathing. 3. Family feels that if pt gets weaker and does poorly after extubation, that he would not want to be re-intubated. -Family/emotional support: Multiple family members. Primary spokespersons for the family are: Jody Sheth (daughter) [phone] (daughter) [phone] Patient Goals: 1. Pt only willing to have short term intubation/ventilation per family statements. Problems: Resuscitation Status Resuscitation Status: DNR/DNI:Do Not Resuscitate/Intubate POLST Updates/Changes Previous POLST?: No . Symptom management: Dyspnea Total time 35 minutes; >50% face to face with patient and/or family, providing counselling regarding plans and recommendations, and in care coordination with his/her medical teams. I also spent an additional 30 minutes counseling for advanced care planning with the patient/the patients family/the surrogate decision maker. Palliative Brief Note Date of Service Dec 05, 2016 . Patient Identification: 76 male WWM with PMH CABG sp stent placement 3 years ago, COPD 2/2 tobacco abuse (x 40 years, quit 5 yrs), on home O2, HTN, HLD admitted to hospital for SOB on 11/28. Acute on chronic hypoxic hypercapneic respiratory failure unfortunately continued to worsen despite BiPAP. Pt was intubated for hypercapnic respiratory failure, refractory to BiPAP at 1615H 12/01 and pulmonology consulted to assist in ventilator management. Hospital Course: Pt subsequently diagnosed with a viral infection and empiric antibiotics discontinued. On Hospital Day 7, Vent Day 3 (12/04) Palliative Care was asked to help assess family preferences in care as pt had previously stated he would want only a short trial of intubation/ventilation. He failed 3 SBTs on 12/04, and part of family gathered for a family conference with Dr. Selby and Dr. Lara, at which time they considered possibly extubating him on 12/05 after gathering the rest of the family for counseling and update. Today 12/05, pt is clinically improving. He is more alert, able to complete one SBT successfully, and indicated to his family at bedside that he would like to continue "fighting. " Palliative Care plan for today is to meet with entire family, Dr. Selby ( Attending) and Pulmonary Medical Illustrator Dr. Craig for further discussion and a clinical update. General: propofol 15mcg; fentanyl 50mcg (less sedation than yesterday), pt opens eyes spontaneously, makes eye contact, tracks, able to squeeze hand on command, nods "no" to questions about being in pain. Appears to understand simple questions. HEENT: NC/AT, sclera clear, mmm, intubated Lungs: decreased breath sounds, no rales, rhonchi. Heart: distant S1,S2, tachycardic, some skipped beats, no murmur Abdomen: soft, no masses G/U: luong in place Extremities: trace edema Skin: no rashes Adina Lara MD Dec 05, 2016 12:44
--- NOTE | 2016-12-05 13:24 | PROG NOTE ---
[address] [address] PROGRESS NOTE PATIENT: MICHAEL UNDERWOOD : 1940 MR#: [id number] ADMIT: 11/28/2016 JOB ID: [id number] DATE: 12/05/2016 The patient was seen and evaluated with resident physician, Perry Baumann. Please refer to his separate detailed note for additional information. PULMONARY CRITICAL CARE PROGRESS NOTE: The patient is a 76-year-old man with COPD, on 1 L of home oxygen admitted to the hospital with a COPD exacerbation and acute hypoxic respiratory failure requiring mechanical ventilation. INTERVAL HISTORY: The patient apparently indicated that he did not want a prolonged intubation. For this reason, the initial plan for this morning was to transition him to comfort measures, but in the interim he seems more alert today, more responsive and is doing slightly better on a pressure support trial. For this reason, an immediate family conference was held which I will summarize below. REVIEW OF SYSTEMS: Unable to obtain since the patient is intubated. PHYSICAL EXAMINATION: T-max of 37.1, FiO2 of 35%. General: He opened his eyes to voice but was not following commands for me. Chest is clear to auscultation. Heart: Tachycardic but no murmurs. On the vent on pressure support of 8/5, he is pulling tidal volumes around 320-340 with respiratory rate in the mid teens. Labs reviewed notable for WBC up to 11.6 from 6 yesterday. Chemistry is within normal limits. Procalcitonin is 0.24 on December 03. Cultures: Respiratory viral PCR was positive for parainfluenza 4. Blood and sputum cultures are negative. Chest x-ray, bibasilar atelectasis. There does appear to be a left pleural effusion, small that was not present on day of admission. Arterial blood gas shows pH of 7.42, pCO2 of 56, pO2 of 117, bicarbonate of 36. ASSESSMENT AND RECOMMENDATIONS: 1. Acute hypoxic respiratory failure. 2. Chronic obstructive pulmonary disease exacerbation. 3. Acute kidney injury-improved. This 76-year-old man with prior smoking history, COPD on home O2 is admitted with a COPD exacerbation and respiratory failure. He has evidence of CO2 retention and chronic hypercarbia on his blood gas. He had been failing his spontaneous breathing trials quite poorly as of yesterday but today he is somewhat more alert and actually doing reasonably well on pressure support of 8/5 which is not strictly speaking a spontaneous breathing trial. His tidal volumes on this setting are around 340-350 and his respiratory rate is around 15-18. When I turned him down to pressure support of 5, his volumes drop to 275-300. He has had some fluid IV for acute kidney injury over the last couple of days and this has resulted in improvement in his creatinine down to normal today. I would like to turn off his IV fluids and actually consider giving him a dose of IV Lasix to get him as dry as possible. The family which was initially planning to extubate him to comfort measures today is hopeful based on his signs of improvement today. We had a family conference today where I recommended to them that we wait one more day to give him the best chance of success postextubation. My hope will be to extubate him to BiPAP on and off, certainly q.h.s. and p.r.n. during the day. The family did indicate that he should be do not reintubate if he fails again post extubation, but ideally they would like to be able to have this conversation directly with the patient. In the event that he is unable to contribute or make a decision post extubation, the patient will be DO NOT REINTUBATE. Both the patient's primary hospitalist, Dr. Selby and Palliative Care physician, Dr. Castro, were present for this conversation. He is currently getting Solu-Medrol 60 IV daily, nebs. He is on appropriate DVT and GI prophylaxis. CRITICAL CARE TIME: 60 minutes.
--- NOTE | 2016-12-05 13:25 | PCM.PNMED ---
Subjective Date of Service Dec 05, 2016 Subjective And currently intubated but today does respond to questions answered and can shake his head. Exam Vital Signs Vital Sign - Last Date Time Temp Pulse Resp B/P Pulse Ox O2 Delivery O2 Flow Rate FiO2 12/05/16 12:41 113 163/65 94 35 12/05/16 11:59 20 12/05/16 08:00 37.1 Mechanical Ventilator 12/03/16 04:30 3.00 Intake and Output 12/04/16 12/04/16 12/05/16 Cumulative From/Thru 15:00 23:00 07:00 11/28/16 13:58 - 12/05/16 06:15 Intake Total 1759 ml 2071 ml 14813 ml Output Total 650 ml 660 ml 8085 ml Balance 1109 ml 1411 ml 4730 ml Intake Oral 0 ml 1747 ml IV Total 1195 ml 1344 ml 8792 ml Tube Feeding 504 ml 697 ml 1816 ml Tube Irrigant 60 ml 30 ml 460 ml Output Urine Total 650 ml 650 ml 7625 ml Gastric Drainage Total 10 ml 460 ml # Voids 3 # Bowel Movements 2 4 Exam Constitutional: Elderly man who is currently intubated Head: Normocephalic atraumatic Chest reveals some scattered rhonchi Cor: Regular rate and rhythm S1-S2 Abdomen: Soft, nontender bowel sounds present Extremities, trace bilateral pedal edema noted Lab and Diagnostics Laboratory Tests 72 Hours Test 12/02/16 15:40 12/02/16 16:30 12/03/16 05:35 12/03/16 11:30 Urine Legionella pneumophilia Ag Negative (Negative) Triglycerides Level 227mg/dL (0-149) White Blood Count 7.0th/mm3 (3.8-10.1) Red Blood Count 3.52mil/mm3 (4.40-5.80) Hemoglobin 10.2g/dL (13.8-17.2) Hematocrit 32.9% (41.0-50.0) Mean Corpuscular Volume 93.5fL (81-100) Mean Corpuscular Hemoglobin 29.0pg (27.0-35.0) Mean Corpuscular Hemoglobin Concent 31.0% (32.0-37.0) Red Cell Distribution Width 12.0% (12.3-15.4) Platelet Count 93bil/L (150-400) Sodium Level 132mEq/L (134-144) Potassium Level 3.7mEq/L (3.5-5.2) Chloride Level 85mEq/L (97-108) Carbon Dioxide Level 35mmol/L (18-29) Blood Urea Nitrogen 68mg/dL (8-27) Creatinine 1.90mg/dL (0.76-1.27) Estimat Glomerular Filtration Rate 37mL/min (>59) Glucose Level 166mg/dL (60-99) Hemoglobin A1c 5.3% (4.8-5.6) Calcium Level 7.6mg/dL (8.5-10.1) Phosphorus Level 3.8mg/dL (2.5-4.9) Total Bilirubin 1.0mg/dL (0.0-1.2) Aspartate Amino Transf (AST/SGOT) 42U/L (0-50) Alanine Aminotransferase (ALT/SGPT) 30U/L (0-44) Alkaline Phosphatase 50U/L (25-160) Total Protein 4.5g/dL (6.4-8.4) Albumin 3.0g/dL (3.4-5.0) Procalcitonin 0.24ng/mL (0.00-0.08) Lactic Acid Level 1.6mmol/L (0.4-2.0) Test 12/03/16 17:43 12/04/16 04:00 12/04/16 05:20 12/04/16 10:33 Urine Color Yellow (YELLOW) Urine Appearance Hazy (CLEAR,HAZY) Urine pH 6.0 (5.0-8.0) Urine Specific Louise 1.015 (1.003-1.035) Urine Protein Negativemg/dL (NEG,TRACE) Urine Glucose (UA) Negativemg/dL (NEGATIVE) Urine Ketones Negativemg/dL (NEGATIVE) Urine Occult Blood Moderate (NEGATIVE) Urine Nitrite Negative (NEGATIVE) Urine Bilirubin Negative (NEGATIVE) Urine Urobilinogen Normalmg/dL (NORMAL) Urine Leukocyte Esterase Negative (NEGATIVE) Urine RBC 0-2/hpf (0-2) Urine WBC 0-5/hpf (0-5) Urine Epithelial Cells Few/hpf (NONE-MOD) Urine Crystals None seen (NONE SEEN) Urine Bacteria Few/hpf (NONE-FEW) Urine Hyaline Casts None/lpf (NONE) Urine Granular Casts None seen (NONE SEEN) Urine Waxy Casts None seen (NONE SEEN) Urine Red Blood Cell Casts None seen (NONE SEEN) Urine White Blood Cell Casts None seen (NONE SEEN) Urine Mucus None seen (None Seen) Urine Trichomonas None seen (NONE SEEN) Urine Yeast None (NONE SEEN) Urinalysis Comment None Urine Culture Reflexed Not indicated White Blood Count 6.3th/mm3 (3.8-10.1) Red Blood Count 2.34mil/mm3 (4.40-5.80) Hemoglobin 7.0g/dL (13.8-17.2) 11.5g/dL (13.8-17.2) Hematocrit 22.6% (41.0-50.0) 36.7% (41.0-50.0) Mean Corpuscular Volume 96.6fL (81-100) Mean Corpuscular Hemoglobin 29.9pg (27.0-35.0) Mean Corpuscular Hemoglobin Concent 31.0% (32.0-37.0) Red Cell Distribution Width 11.8% (12.3-15.4) Platelet Count 68bil/L (150-400) Neutrophils (%) (Auto) 91.4% (40-74) Lymphocytes (%) (Auto) 2.7% (14-46) Monocytes (%) (Auto) 5.6% (4-12) Eosinophils (%) (Auto) 0% (0-5) Basophils (%) (Auto) 0% (0-3) Sodium Level 135mEq/L (134-144) Potassium Level 3.8mEq/L (3.5-5.2) Chloride Level 91mEq/L (97-108) Carbon Dioxide Level 34mmol/L (18-29) Blood Urea Nitrogen 60mg/dL (8-27) Creatinine 1.54mg/dL (0.76-1.27) Estimat Glomerular Filtration Rate 47mL/min (>59) Glucose Level 182mg/dL (60-99) Calcium Level 7.4mg/dL (8.5-10.1) Total Bilirubin 0.9mg/dL (0.0-1.2) Aspartate Amino Transf (AST/SGOT) 47U/L (0-50) Alanine Aminotransferase (ALT/SGPT) 37U/L (0-44) Alkaline Phosphatase 53U/L (25-160) Total Protein 4.7g/dL (6.4-8.4) Albumin 3.0g/dL (3.4-5.0) Triglycerides Level 162mg/dL (0-149) Reticulocyte Count,Calculated 1.4% (0.6-2.6) Haptoglobin 174mg/dL (34-200) Iron Level 81ug/dL (35-150) Total Iron Binding Capacity 219ug/dL (250-450) Percent Iron Saturation 37%sat (15-50) Unsaturated Iron Binding 138.0ug/dL Test 12/05/16 04:24 White Blood Count 11.6th/mm3 (3.8-10.1) Red Blood Count 3.36mil/mm3 (4.40-5.80) Hemoglobin 9.9g/dL (13.8-17.2) Hematocrit 32.7% (41.0-50.0) Mean Corpuscular Volume 97.3fL (81-100) Mean Corpuscular Hemoglobin 29.5pg (27.0-35.0) Mean Corpuscular Hemoglobin Concent 30.3% (32.0-37.0) Red Cell Distribution Width 12.3% (12.3-15.4) Platelet Count 108bil/L (150-400) Neutrophils (%) (Auto) 89.9% (40-74) Lymphocytes (%) (Auto) 2.3% (14-46) Monocytes (%) (Auto) 7.2% (4-12) Eosinophils (%) (Auto) 0% (0-5) Basophils (%) (Auto) 0.1% (0-3) Sodium Level 139mEq/L (134-144) Potassium Level 3.7mEq/L (3.5-5.2) Chloride Level 100mEq/L (97-108) Carbon Dioxide Level 29mmol/L (18-29) Blood Urea Nitrogen 56mg/dL (8-27) Creatinine 1.15mg/dL (0.76-1.27) Estimat Glomerular Filtration Rate 66mL/min (>59) Glucose Level 151mg/dL (60-99) Calcium Level 6.6mg/dL (8.5-10.1) Phosphorus Level 2.2mg/dL (2.5-4.9) Magnesium Level 2.4mg/dL (1.6-2.6) Total Bilirubin 0.6mg/dL (0.0-1.2) Aspartate Amino Transf (AST/SGOT) 46U/L (0-50) Alanine Aminotransferase (ALT/SGPT) 39U/L (0-44) Alkaline Phosphatase 52U/L (25-160) Total Protein 4.3g/dL (6.4-8.4) Albumin 2.4g/dL (3.4-5.0) Result Diagram: 12/05/1642312/05/16423 X-Rays, CTs and MRIs Accessory reviewed and show pulmonary edema. Lead EKG show normal sinus rhythm Patient Name: MICHAEL UNDERWOOD MR#: [id number] Location: CCU Ordering Phys: DHAVAL MARTINEZ DO Date of Service: 12/05/16 0500 Caution: Report not yet finalized and possibly incomplete! PROCEDURE: X-RAY CHEST ONE VIEW, PORTABLE ([id number]) INDICATIONS: intubated on ventilator TECHNIQUE: One view of the chest was acquired. COMPARISON: [facility], CR, XR CHEST 1VW (PORTABLE), 12/04/2016, 7: 56. FINDINGS: Surgical changes and devices: Sternal wire, ETT, NG and right PICC are unchanged. Lungs and pleura: There is blunting of the costophrenic angles bilaterally. There are hazy opacities in the bases unchanged. Mediastinum: Mediastinal contours appear normal. Heart size is normal. Bones and chest wall: No suspicious bony lesions. Overlying soft tissues appear unremarkable. IMPRESSION: Bibasilar atelectasis versus aspiration or pneumonia. Correlate clinically. Dictated by: Simón Hernandez RRA Interpreted: Janice Mackey MD on 12/05/2016 at 9:39 Transcribed by: ALINA on 12/05/2016 at 9:40 Cardiac Echo Impressions Patient Name: MICHAEL UNDERWOOD MR#: [id number] Location: PCC Ordering Phys: Michael Noble MD Date of Service: 11/29/[address] [address] Echocardiogram Report Name: MICHAEL UNDERWOOD Wallace e: 11/29/2016 Height: 66 in Hospital Exam Location: [facility] Weight: 22 0 lb Gender: Male BSA: 2.1 m2 : 1940 Age: 76 yrs BP: 164/73 mmHg Reason For Study: HEART FAILURE, PULMONARY EDEMA History: CABG,COPD Ordering Physician: [facility] Performed By: Lorna Rashid Referring Physician: Dr. Kevin Zimmerman Interpretation Summary The left ventricle is normal in size. The ejection fraction is estimated to be 65-70%. The right ventricle is not well visualized. The right ventricle grossly appears normal in size with probable normal systolic function. There is mild aortic regurgitation. Compared to the prior echo study, there has been no change in the severity of aortic regurgitation. Procedure: A two-dimensional transthoracic echocardiogram with color flow and Doppler was performed. The apical views were difficult to obtain and are suboptimal in quality. A contrast injection of Definity was performed to improve assessment of LV function. Contrast was injected into an intravenous site in the left arm. A total of 4 cc of contrast was given. Comparison is made with the echocardiogram of 04-30-2011. The suprasternal notch views were difficult to obtain and are suboptimal in quality. The patient was in normal sinus rhythm during the exam. The patient did well with the Definity Contrast. No complications were noted. Left Ventricle: The left ventricle is normal in size. Left ventricular wall thickness is mild-moderately increased. There is no thrombus. The ejection fraction is estimated to be 65-70%. There has been no significant change since the previous study. There is basal inferior wall hypokinesis. There is basal inferoseptal wall hypokinesis. Compared to the prior exam, the left ventricular wall motion has not changed. Spectral Doppler of the mitral valve is reversed, with an E/A wave ratio < 1.0. Right Ventricle: The right ventricle is not well visualized. The right ventricle grossly appears normal in size with probable normal systolic function. Atria: The left atrium is mildly dilated. The left atrium has remained unchanged in size since the prior echo exam. The right atrium is borderline dilated. There is no Doppler evidence for an atrial septal defect. Mitral Valve: The mitral valve is grossly normal. The mitral valve leaflets are slightly calcified. There is trace mitral regurgitation. Aortic Valve: The aortic valve is trileaflet. There is mild aortic valve sclerosis. The aortic valve opens well. There is no aortic valve stenosis. There is mild aortic regurgitation. Compared to the prior echo study, there has been no change in the severity of aortic regurgitation. Tricuspid Valve: The tricuspid valve is not well visualized, but is grossly normal. There is trace tricuspid regurgitation. The right ventricular systolic pressure is estimated at 38 mmHg assuming a right atrial pressure of 8 mm Hg. Pulmonic Valve: The pulmonic valve is not well seen, but is grossly normal. There is trace pulmonic regurgitation. Great Vessels: The aortic root is normal size. There is aortic root sclerosis/calcification. The dimensions of the ascending aorta are normal. The pulmonary artery is normal size. The IVC is dilated (diameter is greater than 2.1 cm) yet it collapses greater than 50% with a sniff. This suggests a right atrial pressure of 8 mm Hg. Pericardium/ Pleura There is no pericardial effusion. There is no pleural effusion. MMode/2D Measurements & Calculations LVIDd: 4.5 cm LA dimension: 4.4 cm RA long axis LVOT diam LVIDs: 2.8 cm FS: 37.4 % LA A2 area: 22.2 cm RA area AoV Opening EPSS: 0.48 cm LA A4 area: 21.3 cm IVSd: 1.4 cm LA length (vol): 5.6 cm: 20.8 cm Ao root diam LVPWd: 1.2 cm LA vol: 71.8 ml RA vol LA vol index : 64.7 ml Aortic Jxn RA : 31.1 mm2 asc Aorta IVC diam: 2.2 cm Diam: 3.4 cm LV mohr. diameter/BSA LV sys. diameter/BSA (cm/m^2): 2.2 (cm/m^2): 1.4 Doppler Measurements & Calculations Ao V2 max MV E max abram MV E/A: 0.92 TR max abram : 188.2 cm/sec : 93.9 cm/sec Med Peak E' Abram : 275.0 cm/sec Ao max PG MV A max abram TR max PG : 14.2 mmHg : 102.3 cm/sec E/E' med: 13.6 : 30.2 mmHg Ao mean PG MV P1/2t: 79.7 msec Lat Peak E' Abram PA V2 max : 115.0 cm/sec LVOT Max Abram E/E' lat: 10.3 PA mean PG : 118.5 cm/sec E/e' average: 12.0 Pulm A Revs Dur PA Accel Time OSIEL(I,D): 2.4 cm : 0.09 sec sev ratio MV A dur: 0.14 sec AI P1/2t : 555.4 msec AI dec slope : 215.5 cm/s2c MV dec time MV P1/2t max abram Ao V2 mean LV V1 max PG : 0.27 sec : 131.1 cm/sec MVA(P1/2t): 2.8 cm2 Ao V2 VTI: 41.4 cm LV V1 VTI OSIEL(V,D): 2.3 cm2 : 27.5 cm PA V2 mean OSIEL indexed to BSA Pulm A Revs Dur - MV : 76.4 cm/sec (cm^2/m^2): 1.2 A Dur: -0.02 msec Reading Physician:PM Additional Diagnostics MICHAEL UNDERWOOD 1940 Male DateTimeAnalyzed 04:33:00 -_ pH ____7.439 - 7.350 7.450 pCO2 ___57.5__ -mmHg 35.0 45.0 pO2 ___86.6__ -mmHg 69.0 116 HCO3- ___38.3__ -mmol/L 22.0 26.0 ABE ___12.4__ -mmol/L -2.0 2.0 tHb ___10.8__ -g/dL O2Hb ___95.7__ -% COHb ____0.8__ -% MetHb ____1.1__ -% sO2 ___97.6__ -% 25.0 FIO2 ___45.0__ -% PRVC 450 - PEEP ____5.0__ -cmH2O Set_RR ___13.0__ -b/min Vt __501.0__ -L Drawn By RB - Date/Time Notified____ 04:37:00 -_ Spontaneous_RR ___13.0__ -b/min Oxygen Device 1 VENTILATOR - Notified By RB - Notified Whom DANIEL K, RN - Age 69 -years B 749 -mmHg tO2 ___14.6__ -Vol% Bert test _Positive - Assessment & Plan 1. Acute on chronic respiratory failure with hypoxia and hypercarbia, POA. This appears to represent acute heart failure. His echo indicates probable diastolic dysfunction. However does have COPD with [id number] history of smoking. Patient is positive for parainfluenza on respiratory PCR. The patient was intubated yesterday for progressive respiratory failure with hypercarbia. His PCO2 had gone from 8200 in spite of being on BiPAP. Long discussion with the family indicated that they did want intubation and full level of care. He was intubated had transient hypotension after which was corrected with fluids. The patient had a parainfluenza PCR which was positive. He was started on empiric antibiotics. Today he is clinically relatively stable and still requiring pressors. He was started on empiric antibiotics yet his blood cultures and sputum cultures at this point are negative. After discussion with infectious disease today they recommend descending IV meropenem and see no need for IV antibiotics. Consider spontaneous breathing trial today. Today patient did have a spontaneous breathing trial and did do better than yesterday. We did again discuss with the family along with dean of graduate studies and we will go ahead and keep intubated through today and possibly extubate tomorrow and place on BiPAP. Family did say that if he fails extubation and BiPAP therapy he will not wish to be reintubated. 2. Parainfluenza URI/pneumonia. POA. Symptomatic treatment the patient is being covered with meropenem for possible secondary bacterial pneumonia with cultures pending. DC IV meropenem today as noted above. No evidence clinically of pneumonia. 2. Possible Acute on chronic diastolic heart failure. POA. The thought initially was that he was having a component of diastolic heart failure. This is less clear. Certainly he cannot be diuresed at this point as he has become more ill and requiring pressors. After discussion with pulmonology today, Dr. Craig, we will go ahead and saline lock his IV fluids and give him a dose of Lasix to optimize possible extubation tomorrow. 3. COPD exacerbation,POA. We will continue to use IV steroids and bronchodilators. Check 4 times a day blood sugars and place on subcutaneous regular insulin protocol 4. Essential hypertension, uncontrolled. POA. The patient will have these medications held. 5. Hyperkalemia. POA. Resolved, follow with daily labs.. 6. Chronic respiratory failure on home oxygen, POA 7. History of coronary artery disease status post CABG, POA 8. Hypercholesterolemia, POA 9. BPH, POA 10. Acute kidney failure, not present on admission Improved over past several days with some IV fluid hydration. VTE Prophylaxis: Sub-Q Heparin (Unfractionated) VTE Mechanical Devices: Intermittant Pneumatic CD Resuscitation Status: DNR/DNI:Do Not Resuscitate/Intubate Time spent 30 minutes Roxie Selby MD Dec 05, 2016 13:25
--- NOTE | 2016-12-05 15:06 | PCM.PNMED ---
Subjective Date of Service Dec 05, 2016 Subjective Pulmonology Consultation: Attending Physician Dr. Craig. requesting biostatistician Dr. De La Cruz. 76 male with PMH CABG sp stent placement 3 years ago, COPD 2/2 tobacco abuse, on home O2, HTN, HLD admitted to hospital for SOB which continued to worsen despite BiPAP with different size mask's. Pt was intubated for hypercapnic respiratory failure, refractory to BiPAP and pulmonology consulted to assist in ventilator management. Pt failed 3 SBT's over the last two days and after discussion led by palliative care with family Pt was scheduled for compassionate extubation today. Overnight: Pt able to open eyes to voice and respond to questions appropriately with a head nod. No events reported. Today: Pt more awake and alert to voice. Additional SBT done today with success. Additional family meeting was held with palliative care and plan is to keep Pt intubated for one additional day and do an additional SBT. If this is successful Pt will be extubated. If he falls back into respiratory distress Pt does not wish to be intubated again but will be placed back on BiPAP. Exam Vital Signs Vital Sign - Last Date Time Temp Pulse Resp B/P Pulse Ox O2 Delivery O2 Flow Rate FiO2 12/05/16 07:27 108 163/78 99 35 12/05/16 04:30 37.1 13 Mechanical Ventilator 12/03/16 04:30 3.00 Intake and Output 12/04/16 12/04/16 12/05/16 Cumulative From/Thru 15:00 23:00 07:00 11/28/16 13:58 - 12/05/16 06:15 Intake Total 1759 ml 2071 ml 21269 ml Output Total 650 ml 660 ml 8085 ml Balance 1109 ml 1411 ml 4730 ml Intake Oral 0 ml 1747 ml IV Total 1195 ml 1344 ml 8792 ml Tube Feeding 504 ml 697 ml 1816 ml Tube Irrigant 60 ml 30 ml 460 ml Output Urine Total 650 ml 650 ml 7625 ml Gastric Drainage Total 10 ml 460 ml # Voids 3 # Bowel Movements 2 4 Exam General: Intubated with sedation, but is awake and responsive to voice. HEENT: Intubated. PERRL. Neck: No jugular venous distension. Cardiovascular: Tachycardic rate with regular rhythm. Pulmonary: Lung sounds clear bilaterally. Abdomen: Soft to palpation 4 quadrants. Extremities: Bilateral lower extremity mild edema Neurological: Intubated and sedated. Ventilator settings: Tidal volume 450. Respiratory rate 13 FiO2 0.35%. PEEP 5. ABG: PH 7.33, PCO2 68.6, O2 68.5, HCO3 35.4 IV drips and Sedatives: Propofol 15, fentanyl 50 IV lines: [place] I&O: [place] [address], out 8085, total +4730 IVs and Medications Medications Reviewed: Medications were reviewed in detail Lab and Diagnostics Result Diagram: 12/05/16 0424 12/05/16 0424 Microbiology positive for Parainfluenza virus X-Rays, CTs and MRIs Accessory reviewed and show pulmonary edema. Lead EKG show normal sinus rhythm Additional Diagnostics MICHAEL UNDERWOOD 1940 Male DateTimeAnalyzed 04:33:00 -_ pH ____7.439 - 7.350 7.450 pCO2 ___57.5__ -mmHg 35.0 45.0 pO2 ___86.6__ -mmHg 69.0 116 HCO3- ___38.3__ -mmol/L 22.0 26.0 ABE ___12.4__ -mmol/L -2.0 2.0 tHb ___10.8__ -g/dL O2Hb ___95.7__ -% COHb ____0.8__ -% MetHb ____1.1__ -% sO2 ___97.6__ -% 25.0 FIO2 ___45.0__ -% PRVC 450 - PEEP ____5.0__ -cmH2O Set_RR ___13.0__ -b/min Vt __501.0__ -L Drawn By RB - Date/Time Notified____ 04:37:00 -_ Spontaneous_RR ___13.0__ -b/min Oxygen Device 1 VENTILATOR - Notified By RB - Notified Whom DANIEL K, RN - Age 69 -years B 749 -mmHg tO2 ___14.6__ -Vol% Bert test _Positive - Assessment & Plan 76 male with PMH CABG s/p stent placement 3 years ago, COPD 2/2 tobacco abuse, on home O2, HTN, HLD admitted to hospital for SOB which continued to worsen despite BiPAP with different size mask's. Pt was intubated for hypercapnic respiratory failure, refractory to BiPAP and pulmonology consulted to assist in ventilator management. 1. Hypoxicemic respiratory failure. Acute, present on admission. Ongoing - Pt remains Intubated and on ventilator - Pt failed 3 previous SBTs. Today he did very well on his SBT with pressure support of 8/5. - Plan is to try an additional SBT tomorrow and if he looks able to tolerate it he will be extubated with BiPAP if needed. At this point if he does not do well post extubation he does not wish to be reintubated, but this conversation will be had with the Pt prior to extubation if possible. 2. Chronic obstructive pulmonary disease exacerbation. - Most likely secondary to parainfluenza virus 4. - Continue symptomatic treatment with IV steroids and bronchodilators 3. Acute kidney injury-improved. - Most likely due to volume depletion and has responded very well to IV fluid administration. - Cr normalized - Will hold IV fluids and give Lasix to get him as "dry" as possible prior to extubation VTE Prophylaxis: Sub-Q Heparin (Unfractionated) VTE Mechanical Devices: Intermittant Pneumatic CD Resuscitation Status: DNR/DNI:Do Not Resuscitate/Intubate Attending Statement I have seen and examined this patient with the resident physician. Vital signs , labs, imaging have been reviewed. I agree with the assessment and plan above. Please refer to my separately dictated progress note for any modifications to above. Kendal Craig M.D. Pulmonary and Critical Care medicine Pager [phone] DHAVAL MARTINEZ DO Dec 05, 2016 09:41 Kendal Craig MD Dec 05, 2016 16:06
[2016-12-05] MEDS: fentaNYL 2,500 mCg/250 mL 2,500 MCG in IV Premix 1 EACH IV PRN (17:52)
--- NOTE | 2016-12-05 18:50 | NUR ---
Mentation/PS trial.. noted to be more wakeful and nodding appropriately this am. Was able to do a pressure support trial for 1.5 hours and brie well having Fentanyl reduced to 50 mcgs. Family had conference with palliative and decision was to keep pt on vent another day. Is brie tube feeds well but is having loose stools, softners and lax held. UOP brisk with lasix given. Family at bedside and updated on plan and care given.
[2016-12-06] VITALS (14 sets, daily range): BP systolic 111–183; BP diastolic 44–84; PULSE 72–129; RESP 13–22; O2SAT 92–98
[2016-12-06] MEDS: Albuterol-Ipratropium 3 mL Inhalation Solution NEB SCH ×4 (00:50→10:59)
[2016-12-06] MEDS: Heparin 5,000 Unit/mL Inj SUBQ SCH ×3 (01:06→16:39)
[2016-12-06] MEDS: Chlorhexidine 0.12% 15 mL Oral Solution MT SCH ×6 (01:06→19:42)
[2016-12-06] MEDS: Insulin Human REGular 300 Unit/3 mL Inj SUBQ SCH ×4 (02:28→20:30)
--- NOTE | 2016-12-06 03:47 | NUR ---
P) LOC/Pain/fever Pt. alert and nodding and shaking head appropriately, nods when asked if in pain but unable to indicate where pain is located. Low grade fever tonight, T-max so far 37.4c orally. I) Passive cooling, titrating fentanyl, turning q2h and floating heels. E) Currently resting quietly, occasionally restless and pulling on restraints.
[2016-12-06 04:55] LABS: BASOPHILS % (AUTO) 0.1 % (0-3); EOSINOPHILS % (AUTO) 0.1 % (0-5); MONOCYTES % (AUTO) 7.7 % (4-12); NEUTROPHILS % (AUTO) 87.9 % (40-74); Platelet Count 125 bil/L (150-400)
--- NOTE | 2016-12-06 05:09 | ABG ---
DateTimeAnalyzed 05:06:00 -_ pH ____7.388 - 7.350 7.450 pCO2 ___61.7__ -mmHg 35.0 45.0 pO2 ___91.5__ -mmHg 69.0 116 HCO3- ___36.3__ -mmol/L 22.0 26.0 ABE ____9.8__ -mmol/L -2.0 2.0 tHb ___10.9__ -g/dL O2Hb ___95.5__ -% COHb ____1.0__ -% MetHb ____0.9__ -% sO2 ___97.3__ -% 25.0 FIO2 ___35.0__ -% Drawn By MM - Date/Time Notified____ 05:08:00 -_ Notified By MM - Age 69 -years B 758 -mmHg tO2 ___14.7__ -Vol% Bert test _Positive -
[2016-12-06] MEDS: Tiotropium 18mcg/Cap 5 Capsule Inhaler Kit INHALATION SCH (07:22)
[2016-12-06] MEDS: Senna Leaf Extract 528 mg/15 mL Syrup PO SCH ×2 (07:26→19:42)
[2016-12-06] MEDS: Polyethylene Glycol (PEG) 17 Gm Powder PO SCH ×2 (07:26→19:42)
[2016-12-06] MEDS: Famotidine Inj 20 MG in IV Premix 1 EACH IV SCH ×2 (07:59→20:44)
[2016-12-06] MEDS: MethylprednisoLONE Sodium Succinate 40 mg/mL Inj IVPUSH SCH (07:59)
[2016-12-06] MEDS: Propofol Inj 1,000,000 MCG in IV Premix 1 EACH IV SCH (09:18)
--- NOTE | 2016-12-06 10:56 | PCM.PNMED ---
Subjective Date of Service Dec 06, 2016 Subjective 76-year-old man with COPD presents with acute on chronic respiratory failure with hypoxia complicated by acute kidney injury. Patient is intubated. He is awake alert response in to basic questions. Denies pain. Tolerating pressure support trial. Exam Vital Signs Vital Sign - Last Date Time Temp Pulse Resp B/P Pulse Ox O2 Delivery O2 Flow Rate FiO2 12/06/16 08:00 74 117/44 97 35 12/06/16 07:39 Ventilator 12/06/16 07:39 37.1 17 12/03/16 04:30 3.00 Intake and Output 12/05/16 12/05/16 12/06/16 Cumulative From/Thru 15:00 23:00 07:00 11/28/16 13:58 - 12/06/16 06:45 Intake Total 1539 ml 1427 ml 95212 ml Output Total 1100 ml 750 ml 9935 ml Balance 439 ml 677 ml 5846 ml Intake Oral 1747 ml IV Total 607 ml 406 ml 9805 ml Tube Feeding 622 ml 801 ml 3239 ml Tube Irrigant 310 ml 220 ml 990 ml Output Urine Total 1100 ml 750 ml 9475 ml Gastric Drainage Total 460 ml # Voids 3 # Bowel Movements 3 7 Exam General: Elderly man intubated, no acute distress HEENT: sclerae anicteric, no swelling Neck: Difficult to assess JVD Chest: Coarse breath sounds, generally clear to auscultation Cardiac: S1S2, no murmur Abdomen: BS normal, non-tender Extremities: 1+ edema, mostly in hands Neuro: Alert and responsive, cranial nerves symmetric, motor strength seems normal IVs and Medications Medications Reviewed: Medications were reviewed in detail Lab and Diagnostics Result Diagram: 12/06/165 12/06/16 0445 Microbiology positive for Parainfluenza virus Urinary streptococcal antigen negative. MRSA negative Multiple blood cultures negative Urine culture -12/01 X-Rays, CTs and MRIs PROCEDURE: X-RAY CHEST ONE VIEW, PORTABLE ([id number]) IMPRESSION: Bibasilar atelectasis versus aspiration or pneumonia. Correlate clinically. Dictated by: Simón Hernandez RRHair Interpreted: Janice Mackey MD on 12/05/2016 at 9:39 . Cardiac Echo Impressions Patient Name: MICHAEL UNDERWOOD MR#: [id number] Location: [facility] Ordering Phys: Michael Noble MD Date of Service: 11/29/16 [id number] [place] [address] Echocardiogram Report Name: MICHAEL UNDERWOOD Wallace e: 11/29/2016 Height: 66 in Hospital Exam Location: [facility] Weight: 22 0 lb Gender: Male BSA: 2.1 m2 : 1940 Age: 76 yrs BP: 164/73 mmHg Reason For Study: HEART FAILURE, PULMONARY EDEMA History: CABG,COPD Ordering Physician: HOSPITALIST [facility] Performed By: Lorna Rashid Referring Physician: Dr. Kevin Zimmerman Interpretation Summary The left ventricle is normal in size. The ejection fraction is estimated to be 65-70%. The right ventricle is not well visualized. The right ventricle grossly appears normal in size with probable normal systolic function. There is mild aortic regurgitation. Compared to the prior echo study, there has been no change in the severity of aortic regurgitation. Procedure: A two-dimensional transthoracic echocardiogram with color flow and Doppler was performed. The apical views were difficult to obtain and are suboptimal in quality. A contrast injection of Definity was performed to improve assessment of LV function. Contrast was injected into an intravenous site in the left arm. A total of 4 cc of contrast was given. Comparison is made with the echocardiogram of 04-30-2011. The suprasternal notch views were difficult to obtain and are suboptimal in quality. The patient was in normal sinus rhythm during the exam. The patient did well with the Definity Contrast. No complications were noted. Left Ventricle: The left ventricle is normal in size. Left ventricular wall thickness is mild-moderately increased. There is no thrombus. The ejection fraction is estimated to be 65-70%. There has been no significant change since the previous study. There is basal inferior wall hypokinesis. There is basal inferoseptal wall hypokinesis. Compared to the prior exam, the left ventricular wall motion has not changed. Spectral Doppler of the mitral valve is reversed, with an E/A wave ratio < 1.0. Right Ventricle: The right ventricle is not well visualized. The right ventricle grossly appears normal in size with probable normal systolic function. Atria: The left atrium is mildly dilated. The left atrium has remained unchanged in size since the prior echo exam. The right atrium is borderline dilated. There is no Doppler evidence for an atrial septal defect. Mitral Valve: The mitral valve is grossly normal. The mitral valve leaflets are slightly calcified. There is trace mitral regurgitation. Aortic Valve: The aortic valve is trileaflet. There is mild aortic valve sclerosis. The aortic valve opens well. There is no aortic valve stenosis. There is mild aortic regurgitation. Compared to the prior echo study, there has been no change in the severity of aortic regurgitation. Tricuspid Valve: The tricuspid valve is not well visualized, but is grossly normal. There is trace tricuspid regurgitation. The right ventricular systolic pressure is estimated at 38 mmHg assuming a right atrial pressure of 8 mm Hg. Pulmonic Valve: The pulmonic valve is not well seen, but is grossly normal. There is trace pulmonic regurgitation. Great Vessels: The aortic root is normal size. There is aortic root sclerosis/calcification. The dimensions of the ascending aorta are normal. The pulmonary artery is normal size. The IVC is dilated (diameter is greater than 2.1 cm) yet it collapses greater than 50% with a sniff. This suggests a right atrial pressure of 8 mm Hg. Pericardium/ Pleura There is no pericardial effusion. There is no pleural effusion. MMode/2D Measurements & Calculations LVIDd: 4.5 cm LA dimension: 4.4 cm RA long axis LVOT diam LVIDs: 2.8 cm FS: 37.4 % LA A2 area: 22.2 cm RA area AoV Opening EPSS: 0.48 cm LA A4 area: 21.3 cm IVSd: 1.4 cm LA length (vol): 5.6 cm: 20.8 cm Ao root diam LVPWd: 1.2 cm LA vol: 71.8 ml RA vol LA vol index : 64.7 ml Aortic Jxn RA : 31.1 mm2 asc Aorta IVC diam: 2.2 cm Diam: 3.4 cm LV mohr. diameter/BSA LV sys. diameter/BSA (cm/m^2): 2.2 (cm/m^2): 1.4 Doppler Measurements & Calculations Ao V2 max MV E max abram MV E/A: 0.92 TR max abram : 188.2 cm/sec : 93.9 cm/sec Med Peak E' Abram : 275.0 cm/sec Ao max PG MV A max abram TR max PG : 14.2 mmHg : 102.3 cm/sec E/E' med: 13.6 : 30.2 mmHg Ao mean PG MV P1/2t: 79.7 msec Lat Peak E' Abram PA V2 max : 115.0 cm/sec LVOT Max Abram E/E' lat: 10.3 PA mean PG : 118.5 cm/sec E/e' average: 12.0 Pulm A Revs Dur PA Accel Time OSIEL(I,D): 2.4 cm : 0.09 sec sev ratio MV A dur: 0.14 sec AI P1/2t : 555.4 msec AI dec slope : 215.5 cm/s2c MV dec time MV P1/2t max abram Ao V2 mean LV V1 max PG : 0.27 sec : 131.1 cm/sec MVA(P1/2t): 2.8 cm2 Ao V2 VTI: 41.4 cm LV V1 VTI OSIEL(V,D): 2.3 cm2 : 27.5 cm PA V2 mean OSIEL indexed to BSA Pulm A Revs Dur - MV : 76.4 cm/sec (cm^2/m^2): 1.2 A Dur: -0.02 msec Reading Physician:PM Additional Diagnostics YASMINEMICHAEL E 1940 Male DateTimeAnalyzed 04:33:00 -_ pH ____7.439 - 7.350 7.450 pCO2 ___57.5__ -mmHg 35.0 45.0 pO2 ___86.6__ -mmHg 69.0 116 HCO3- ___38.3__ -mmol/L 22.0 26.0 ABE ___12.4__ -mmol/L -2.0 2.0 tHb ___10.8__ -g/dL O2Hb ___95.7__ -% COHb ____0.8__ -% MetHb ____1.1__ -% sO2 ___97.6__ -% 25.0 FIO2 ___45.0__ -% PRVC 450 - PEEP ____5.0__ -cmH2O Set_RR ___13.0__ -b/min Vt __501.0__ -L Drawn By RB - Date/Time Notified____ 04:37:00 -_ Spontaneous_RR ___13.0__ -b/min Oxygen Device 1 VENTILATOR - Notified By RB - Notified Whom DANIEL K, RN - Age 69 -years B 749 -mmHg tO2 ___14.6__ -Vol% Bert test _Positive - Assessment & Plan 76 male with PMH CABG s/p stent placement 3 years ago, COPD 2/2 tobacco abuse, on home O2, HTN, HLD admitted to hospital for SOB which continued to worsen despite BiPAP with different size mask's. Pt was intubated for hypercapnic respiratory failure, refractory to BiPAP and pulmonology consulted to assist in ventilator management. #. Hypoxicemic respiratory failure. Acute, present on admission. Ongoing. Intubated. Failed SBT for several days. Did very well on his SBT as of 12/05. - Plan is to try an additional SBT tomorrow and if he looks able to tolerate it he will be extubated with BiPAP if needed. - Confirmed with patient post extubation he does not wish to be reintubated #. Chronic obstructive pulmonary disease exacerbation. - Most likely secondary to parainfluenza virus 4. - Continue symptomatic treatment with IV steroids and bronchodilators #. Acute kidney injury-improved. Baseline creatinine 0.89. Most likely due to volume depletion, responded very well to IV fluid administration. Worsened after brief Lasix treatment. - Maintenance IV fluids only - Daily BMP Pain Evaluation: Adequate Pain Control VTE Prophylaxis: Sub-Q Heparin (Unfractionated) VTE Mechanical Devices: Intermittant Pneumatic CD Resuscitation Status: DNR/DNI:Do Not Resuscitate/Intubate Time spent 35 minutes Jorge Blank MD Dec 06, 2016 10:56
--- NOTE | 2016-12-06 11:28 | DRSVH ---
PROCEDURE: X-RAY CHEST ONE VIEW, PORTABLE ([id number]) INDICATIONS: ventilator TECHNIQUE: One view of the chest was acquired. COMPARISON: [facility], CR, XR CHEST 1VW (PORTABLE), 12/05/2016, 3:52. FINDINGS: Surgical changes and devices: Endotracheal tube redemonstrated with the tip approximately 4.6 cm from the sophie. There is a nasogastric tube extending into the stomach with tip not included on current study. Right upper extremity PICC line is stable in position. Postsurgical changes are again noted in the mediastinum. Lungs and pleura: There are small bilateral pleural effusions and patchy left basilar airspace opaci ties consistent with consolidation or atelectasis. Medial right basilar atelectasis or consolidation also noted. No definite pneumothorax. Mediastinum: Mediastinal contours appear unchanged. Heart size is normal. Bones and chest wall: No suspicious bony lesions. Overlying soft tissues appear unremarkable. IMPRESSION: 1. Persistent small bilateral pleural effusions with bibasilar consolidation or atelectasis, left gr eater than right. Dictated by: Karlos Correa M.D. on 12/06/2016 at 11:21 Approved by: Kralos Correa M.D. on 12/06/2016 at 11:22
[2016-12-06] MEDS ORDERED: Cefepime Inj 2 GM in IV Premix 1 EACH IV SCH (11:40)
--- NOTE | 2016-12-06 13:22 | PROG NOTE ---
[address] [address] PROGRESS NOTE PATIENT: MICHAEL UNDERWOOD : 1940 MR#: [id number] ADMIT: 11/28/2016 JOB ID: [id number] DATE: 12/06/2016 PULMONARY CRITICAL CARE PROGRESS NOTE: The patient is a 76-year-old man with COPD on home O2 admitted with COPD exacerbation and acute respiratory failure. INTERVAL HISTORY: He is on a pressure support trial at 7/5 for over two hours this morning, doing well with tidal volumes in the 400s and respiratory rate in the teens. He is more alert and trying to nod in response to questions. REVIEW OF SYSTEMS: Unable to obtain since the patient is intubated. PHYSICAL EXAMINATION: Vital signs reviewed. Temperature 37.1, pulse 74, respirations 19, BP 117/44, sats 96% on 40% FiO2. General: As above. Eyes: Open, alert, nodding in response to some questions but having some difficulty hearing and understanding. Chest is clear to auscultation. LABORATORIES: Reviewed. WBC 12.2 up from 11.6 slightly, hemoglobin is 10.2. Chemistry also reviewed and was most notable for creatinine up to 1.46 from 1.15. BUN is up to 75 from 56. Cultures: No growth. Chest x-ray done today shows increasing left lower lobe infiltrate. There is also some right basilar effusion/atelectasis that is minimal. Procalcitonin from yesterday was 0.2. No procalcitonin done yet today. ASSESSMENT AND RECOMMENDATIONS: 1. Acute hypoxic respiratory failure on mechanical ventilation since December 01. 2. Chronic obstructive pulmonary disease exacerbation. 3. Suspected left lower lobe pneumonia. 4. Acute kidney injury. A 76-year-old man with prior smoking history with COPD on 1 L home O2 admitted with COPD exacerbation and respiratory failure. He has evidence of CO2 retention on his blood gas which appears chronic. He is doing much better on his spontaneous breathing trial today with pressure support of 7/5 with tidal volumes around 400 and I think he is ready to be extubated. The plan is to have BiPAP or high-flow nasal cannula available p.r.n. if he has any difficulty. I am concerned about the increasing infiltrate seen bilaterally on his chest x-ray, despite the negative procalcitonin yesterday. I think he should be on antibiotics and I started him on cefepime. I do not think there is any indication for atypical coverage at this point since this is now hospital day six. I reordered a repeat procalcitonin to add on to this morning's lab to see if it is continuing to rise. We did give him a dose of Lasix yesterday and stopped his IV fluids in anticipation of extubation today. However, with that, his creatinine took a slight bump from 1.1-1.4 so I will hold off on giving him any additional Lasix at this point. I spoke at length with the family at the bedside again today and the plan is for now that he will remain DO NOT REINTUBATE but with the idea that we have this conversation again with the patient to confirm that that is consistent with his wishes. Also discussed with Dr. Blank who has taken over for the Yellow Team and the patient's care today. CRITICAL CARE TIME: 45 minutes.
[2016-12-06] MEDS: Ipratropium 0.02% 0.5 mg/2.5 mL Inhalation Solution NEB SCH ×2 (16:06→20:34)
--- NOTE | 2016-12-06 18:04 | NUR ---
Extubation.. Was able to do a PS trial this am and was able to be extubated as of 1145. OGT and tube feeds also dc'd at that time. Pt initially slightly confused, stating it was 1971, but knew he is in the hospital. Is more awake alert and conversant this afternoon. Family at the bedside and supportive of pt. Remains a DNR/DNI status.
[2016-12-06] MEDS ORDERED: MeTOProlol 1 mg/mL 5 mL Inj IVPUSH ONE (20:40)
[2016-12-06] MEDS: Cefepime 2,000 mg/100 mL D5W Minibag Plus IV SCH ×2 (20:44)
[2016-12-06] MEDS: Nitroglycerin 2% 1 Gm Ointment TOPICAL SCH (22:33)
[2016-12-07] MEDS: Chlorhexidine 0.12% 15 mL Oral Solution MT SCH ×3 (00:01→08:30)
[2016-12-07 00:10] VITALS: PULSE 123; RESP 25; O2SAT 96; O2SAT 97
[2016-12-07] MEDS: Ipratropium 0.02% 0.5 mg/2.5 mL Inhalation Solution NEB SCH ×3 (00:10→08:30)
[2016-12-07] MEDS: Heparin 5,000 Unit/mL Inj SUBQ SCH (00:15)
[2016-12-07 00:17] VITALS: BP 198/78; PULSE 124; RESP 26; O2SAT 96
[2016-12-07] MEDS ORDERED: MeTOProlol 1 mg/mL 5 mL Inj IVPUSH ONE (00:45)
[2016-12-07] MEDS: Insulin Human REGular 300 Unit/3 mL Inj SUBQ SCH (02:30)
[2016-12-07] MEDS: Cefepime 2,000 mg/100 mL D5W Minibag Plus IV SCH ×2 (03:12)
[2016-12-07 03:36] LABS: EOSINOPHILS % (AUTO) 0 % (0-5); Mean Corpuscular Hemoglobin 29.9 pg (27.0-35.0); Mean Corpuscular Volume 100.2 fL (81-100); Platelet Count 280 bil/L (150-400)
[2016-12-07 03:41] VITALS: BP 156/56; PULSE 101; RESP 24; O2SAT 97
[2016-12-07 03:57] LABS: BASOPHILS % (AUTO) 0 % (0-3); MONOCYTES % (AUTO) 12 % (4-12); NEUTROPHILS % (AUTO) 82 % (40-74)
[2016-12-07] MEDS ORDERED: Insulin Human REGular-Omnicell 100 Unit/mL ONE (04:22)
[2016-12-07] MEDS ORDERED: Insulin Human REGular 300 Unit/3 mL Inj IV ONE (04:30)
[2016-12-07] MEDS ORDERED: Insulin Human REGular 300 Unit/3 mL Inj SUBQ ONE (04:30)
--- NOTE | 2016-12-07 05:00 | ABG ---
DateTimeAnalyzed 04:57:00 -_ pH ____7.098 - 7.350 7.450 pCO2 121 -mmHg 35.0 45.0 pO2 ___85.2__ -mmHg 69.0 116 HCO3- ___35.7__ -mmol/L 22.0 26.0 ABE ____1.8__ -mmol/L -2.0 2.0 tHb ___12.9__ -g/dL O2Hb ___91.6__ -% COHb ____0.9__ -% MetHb ____1.0__ -% sO2 ___93.4__ -% 25.0 FIO2 ___40.0__ -% Drawn By MK - Date/Time Notified____ 05:00:00 -_ Liter_Flow ___10.0__ -L/min Oxygen Device 1 TRACH MASK - Notified By MK - Age 69 -years B 754 -mmHg tO2 ___16.6__ -Vol% Bert test _Positive -
[2016-12-07] MEDS: Nitroglycerin 2% 1 Gm Ointment TOPICAL SCH (05:05)
[2016-12-07 05:15] VITALS: RESP 23; O2SAT 98
[2016-12-07] MEDS ORDERED: MeTOProlol 1 mg/mL 5 mL Inj IV ONE (05:30)
--- NOTE | 2016-12-07 05:39 | PCM.PNMED ---
Subjective Date of Service Dec 07, 2016 Subjective Patient had issues with uncontrolled hypertension overnight. Unfortunately the patient was NPO and cannot take his Metoprolol. Several dose of Lopressor and 1 inch Nitropaste but still no significant improvement Patient found to be unresponsive this morning. ABG confirmed patient has Respiratory acidosis, currently DNI and will be placed on BIPAP Zaheer Huggins MD Dec 07, 2016 05:39
--- NOTE | 2016-12-07 06:15 | NUR ---
HTN/Tachycardia/Respiratory Hypertensive with sbp 180-200's, HR ST 120's, pt afebrile, calm in bed, nods to simple yes/no questions, given lopressor 5mg IV, still hypertensive, added nitro paste TD, BP improved in the 160's systolic after midnight, HR down to low 100's ST. Pt c/o gen pain, given low dose morphine IV prn for pain around 2300. AM K+ 6.5, given 1 amp D50 and reqular insulin 10 units IV. around 0445 pt unresponsive to painful stimuli, Hospitalist notified, narcan 0.4 mg slow IVP given, with no response, stat abg done resulted with pH 7.08, pc02 121, p02 85, hc03 36, pt placed on bipap with fio2 0.60, 20/10 I/E, family notified and came @ bedside.
[2016-12-07 07:45] VITALS: BP 144/54; PULSE 92; RESP 23; O2SAT 96
[2016-12-07] MEDS: Tiotropium 18mcg/Cap 5 Capsule Inhaler Kit INHALATION SCH (08:30)
[2016-12-07] MEDS: Senna Leaf Extract 528 mg/15 mL Syrup PO SCH (08:30)
[2016-12-07] MEDS: Polyethylene Glycol (PEG) 17 Gm Powder PO SCH (08:30)
--- NOTE | 2016-12-07 09:57 | NUR ---
Comfort Care... Pt remains unresponsive, no distress or pain indications noted. Family at bedside and requested MD to see the pt. Dr Blank notified, saw pt and decision per family was to make pt comfort care. I have reviewed with them the options of care with comfort care, and they would prefer pt stay on bipap at this time. They are gathered at the bedside and coping well.
--- NOTE | 2016-12-07 10:51 | NUR ---
Social Work Note: Continued Discharge Planning/Comfort Care Data& Assessment: Pt is on comfort care. Per MD in morning rounds, pt prognosis is poor and pt will likely pass this afternoon. SW available for any pt family needs. No needs identified at this time. SW to continue to follow if any needs arise. Plan: Per MD in morning rounds, pt is likely to pass this afternoon. SW to continue to follow if any needs arise. ALEKSANDR Godoy
--- NOTE | 2016-12-07 17:46 | NUR ---
Time of .. Pt had bipap removed this afternoon per family request. Breathing very shallow and was asystolic and apnic at 1535. Family at the bedside at time of . [facility] home notified at 1715. Body to carlyn at 1730.
--- NOTE | 2016-12-07 18:12 | PCM.DC.MEX ---
Discharge Summary Date of Service Dec 07, 2016 Dates of Hospitalization Date of Hospital Admission Nov 28, 2016 at 16:28 Date of Expiration: Dec 07, 2016 Time of Expiration: 15:35 Providers: Admitting Physician: Michael Noble MD Primary Care Physician: Kevin Zimmerman MD Attending Physician: Michael Noble MD Diagnosis at Time of Chronic respiratory failure with hypoxia and hypercarbia; secondary to COPD; secondary to tobacco use disorder Consultations Pulmonology, Dr. Hank Joiner, Dr. Evelyn Craig Palliative care, Dr. Adina Castro Infectious disease, Dr. Reynold Casey . Procedures XRay, CTs & MRIs PROCEDURE: X-RAY CHEST ONE VIEW, PORTABLE ([id number]) IMPRESSION: Bibasilar atelectasis versus aspiration or pneumonia. Correlate clinically. Dictated by: Simón Hernandez RRA Interpreted: Janice Mackey MD on 12/05/2016 at 9:39 . Cardiac Echo Impression Echocardiogram Report Name: MICHAEL UNDERWOOD Wallace e: 11/29/2016 Height: 66 in Hospital Exam Location: [facility] Weight: 22 0 lb Gender: Male BSA: 2.1 m2 : 1940 Age: 76 yrs BP: 164/73 mmHg Reason For Study: HEART FAILURE, PULMONARY EDEMA History: CABG,COPD Ordering Physician: HOSPITALIST [facility] Performed By: Lorna Rashid Referring Physician: Dr. Kevin Zimmerman Interpretation Summary The left ventricle is normal in size. The ejection fraction is estimated to be 65-70%. The right ventricle is not well visualized. The right ventricle grossly appears normal in size with probable normal systolic function. There is mild aortic regurgitation. Compared to the prior echo study, there has been no change in the severity of aortic regurgitation. . Other Diagnostics DateTimeAnalyzed 11:17:00 -_ prior to intubation pH ____7.350 - 7.350 7.450 pCO2 ___78.8__ -mmHg 35.0 45.0 pO2 ___74.6__ -mmHg 69.0 116 HCO3- ___42.3__ -mmol/L 22.0 26.0 FIO2 ___28.0__ -% . Brief History History of Present Illness (per admission note): This is a 76 old man with past medical history of coronary artery disease status post CABG approximately 10 years ago, COPD secondary to tobacco abuse, on liter of oxygen at home. He also reported hypertension, hypercholesterolemia. Presented to the hospital today due to shortness of breath. The daughter was visiting him today and found the patient sitting at the edge of his bed only for shortness of breath. He is a very poor historian , he stated he always been short of breath and denied any recent event such as chest pain, fever, chills, cough or flu like symptoms. No evident emergency room patient found to be hypoxic with oxygen saturation of 80% on room air, his blood pressure was 220 systolic intersection for pulmonary edema. Patient has no previous history of heart failure. . Hospital Course 76 male with PMH CABG s/p stent placement 3 years ago, COPD 2/2 tobacco abuse, on home O2, HTN, HLD admitted to hospital for SOB which continued to worsen despite BiPAP with different size mask's. Pt was intubated for hypercapnic respiratory failure. #. Hypoxicemic respiratory failure. Acute, present on admission. He was intubated for several days. Did very well on his SBT as of 12/05, 12/06. The patient and family expressed wishes for extubation with no repeat intubation. He was extubated on 12/06. His course followed gradual deterioration of pulmonary effort, obtundation and due to respiratory failure with hypoxia and hypercarbia #. Chronic obstructive pulmonary disease exacerbation. Respiratory viral panel revealed parainfluenza virus 4, but history suggests progressive end-stage COPD as fundamental process. He was treated with IV steroids and bronchodilators. Antibiotics were briefly administered then discontinued upon recommendation from infectious disease qm consultant. #. Acute kidney injury-improved. Baseline creatinine 0.89. Creatinine generally ranged from 1.3-1.7 during hospital course. Exam Test 11/28/16 14:30 12/01/16 09:20 12/02/16 15:40 12/03/16 05:35 Pro-B-Type Natriuretic Peptide 2434pg/mL (0-486) Troponin T 0.010ug/L (0.0-0.011) Urine Legionella pneumophilia Ag Negative (Negative) Hemoglobin A1c 5.3% (4.8-5.6) Test 12/03/16 11:30 12/03/16 17:43 12/04/16 05:20 12/04/16 10:33 Lactic Acid Level 1.6mmol/L (0.4-2.0) Urine Color Yellow (YELLOW) Urine Appearance Hazy (CLEAR,HAZY) Urine pH 6.0 (5.0-8.0) Urine Specific [place] 1.015 (1.003-1.035) Urine Protein Negativemg/dL (NEG,TRACE) Urine Glucose (UA) Negativemg/dL (NEGATIVE) Urine Ketones Negativemg/dL (NEGATIVE) Urine Occult Blood Moderate (NEGATIVE) Urine Nitrite Negative (NEGATIVE) Urine Bilirubin Negative (NEGATIVE) Urine Urobilinogen Normalmg/dL (NORMAL) Urine Leukocyte Esterase Negative (NEGATIVE) Urine RBC 0-2/hpf (0-2) Urine WBC 0-5/hpf (0-5) Urine Epithelial Cells Few/hpf (NONE-MOD) Urine Crystals None seen (NONE SEEN) Urine Bacteria Few/hpf (NONE-FEW) Urine Hyaline Casts None/lpf (NONE) Urine Granular Casts None seen (NONE SEEN) Urine Waxy Casts None seen (NONE SEEN) Urine Red Blood Cell Casts None seen (NONE SEEN) Urine White Blood Cell Casts None seen (NONE SEEN) Urine Mucus None seen (None Seen) Urine Trichomonas None seen (NONE SEEN) Urine Yeast None (NONE SEEN) Urinalysis Comment None Urine Culture Reflexed Not indicated Triglycerides Level 162mg/dL (0-149) Reticulocyte Count,Calculated 1.4% (0.6-2.6) Haptoglobin 174mg/dL (34-200) Iron Level 81ug/dL (35-150) Total Iron Binding Capacity 219ug/dL (250-450) Percent Iron Saturation 37%sat (15-50) Unsaturated Iron Binding 138.0ug/dL Test 12/05/16 04:24 12/06/16 04:45 12/07/16 03:05 Phosphorus Level 2.2mg/dL (2.5-4.9) Magnesium Level 2.4mg/dL (1.6-2.6) Prealbumin 21mg/dL (20-40) Procalcitonin 0.31ng/mL (0.00-0.08) White Blood Count 38.1th/mm3 (3.8-10.1) Red Blood Count 4.35mil/mm3 (4.40-5.80) Hemoglobin 13.0g/dL (13.8-17.2) Hematocrit 43.6% (41.0-50.0) Mean Corpuscular Volume 100.2fL (81-100) Mean Corpuscular Hemoglobin 29.9pg (27.0-35.0) Mean Corpuscular Hemoglobin Concent 29.8% (32.0-37.0) Red Cell Distribution Width 12.8% (12.3-15.4) Platelet Count 280bil/L (150-400) Neutrophils (%) (Auto) 82% (40-74) Lymphocytes (%) (Auto) 3% (14-46) Monocytes (%) (Auto) 12% (4-12) Eosinophils (%) (Auto) 0% (0-5) Basophils (%) (Auto) 0% (0-3) Band Neutrophils % 1% (1-5) Metamyelocytes % 1% (0-0) Sodium Level 141mEq/L (134-144) Potassium Level 6.5mEq/L (3.5-5.2) Chloride Level 100mEq/L (97-108) Carbon Dioxide Level 34mmol/L (18-29) Blood Urea Nitrogen 80mg/dL (8-27) Creatinine 1.32mg/dL (0.76-1.27) Estimat Glomerular Filtration Rate 56mL/min (>59) Glucose Level 114mg/dL (60-99) Calcium Level 8.2mg/dL (8.5-10.1) Total Bilirubin 0.9mg/dL (0.0-1.2) Aspartate Amino Transf (AST/SGOT) 54U/L (0-50) Alanine Aminotransferase (ALT/SGPT) 64U/L (0-44) Alkaline Phosphatase 72U/L (25-160) Total Protein 6.0g/dL (6.4-8.4) Albumin 3.1g/dL (3.4-5.0) Microbiology Results positive for Parainfluenza virus Urinary streptococcal antigen negative. MRSA negative Multiple blood cultures negative Urine culture -12/01 Time spent 35 minutes copies to: Kevin Zimmerman MD, Jeffrey W MD Dec 07, 2016 18:12 6.0g/dL (6.4-8.4) Albumin 3.1g/dL (3.4-5.0) Microbiology Results positive for Parainfluenza virus Urinary streptococcal antigen negative. MRSA negative Multiple blood cultures negative Urine culture -12/01 Jorge Blank MD Dec 07, 2016 18:12
== END 2016-12-07 15:35 | disposition expired | DRG 207 ==
LOC: SED 13:43 → EDBD 13:43 → EDUNIT# 13:43 → PCC 16:28 → CCU 12-01 16:07
PROVIDERS: ADMIT Internal Medicine; ATTEND Internal Medicine
PROC: 5A09357 Assistance with Respiratory Ventilation, Less than 24 Consecutive Hours, Continuous Positive Airway Pressure (ICD-10-PCS; 2016-11-28)
PROC: 4A033R1 Measurement of Arterial Saturation, Peripheral, Percutaneous Approach (ICD-10-PCS; 2016-11-30)
PROC: 0BH17EZ Insertion of Endotracheal Airway into Trachea, Via Natural or Artificial Opening (ICD-10-PCS; principal; 2016-12-01)
PROC: 5A1955Z Respiratory Ventilation, Greater than 96 Consecutive Hours (ICD-10-PCS; 2016-12-01)
DX: J96.21 Acute and chronic respiratory failure with hypoxia (principal); I50.33 Acute on chronic diastolic (congestive) heart failure; J44.1 Chronic obstructive pulmonary disease with (acute) exacerbation; N17.9 Acute kidney failure, unspecified; I25.2 Old myocardial infarction; Z86.73 Personal history of transient ischemic attack (TIA), and cerebral infarction without residual deficits; I10 Essential (primary) hypertension; Z95.1 Presence of aortocoronary bypass graft; E78.5 Hyperlipidemia, unspecified; F17.210 Nicotine dependence, cigarettes, uncomplicated; E87.5 Hyperkalemia; N40.0 Benign prostatic hyperplasia without lower urinary tract symptoms; J96.22 Acute and chronic respiratory failure with hypercapnia; Z99.81 Dependence on supplemental oxygen; B34.8 Other viral infections of unspecified site; Z66 Do not resuscitate